=== PATIENT | male | born 1960 | race Caucasian/White ===

== ENCOUNTER 2019-03-31 15:46 | Outpatient (CLI) | payer BC, SELFPAY ==
--- NOTE | ~2019-03-31 | MR_ITS ---
EXAMINATION: MR cervical spine wo con DATE: 03/31/2019 16:35 INDICATION: Myelopathy. TECHNIQUE: Magnetic resonance imaging (MRI) of the cervical spine was performed without intravenous c ontrast. Sequences included sagittal T2-weighted FSE, sagittal STIR FSE, sagittal T1-weighted FSE, ax ial MERGE, and axial T2-weighted FSE. COMPARISON: None FINDINGS: There is 2 mm anterolisthesis of C5 on C6. Vertebral body heights are normal. There is mild ly decreased disc height at C5-C6 and severely decreased disc height at C6-C7. The spinal cord signal intensity is normal. The following disc levels are specifically discussed: C2-C3: The disc does not extend beyond the endplate margin. There is no uncovertebral joint osteoarth ritis. There is severe bilateral facet joint osteoarthritis. There is no neural foraminal stenosis. T here is no central canal stenosis. C3-C4: The disc does not extend beyond the endplate margin. There is no uncovertebral joint osteoarth ritis. At the right facet joint, there is a 1.5 x 1.5 cm lesion of increased T2-weighted signal inten sity that is likely a multiloculated cystic lesion. There is erosion of the adjacent right C3 lateral mass. There is mild right neural foraminal stenosis. There is no central canal stenosis. C4-C5: The disc does not extend beyond the endplate margin. There is no uncovertebral joint osteoarth ritis. There is severe right and moderate left facet joint osteoarthritis. There is no neural foramin al stenosis. There is no central canal stenosis. C5-C6: The disc is bulging. There is mild right and moderate left uncovertebral joint osteoarthritis. There is mild right and severe left facet joint osteoarthritis. There is mild right and moderate lef t neural foraminal stenosis. There is mild central canal stenosis. C6-C7: The disc is bulging. There is severe bilateral uncovertebral joint osteoarthritis. There is mi ld bilateral facet joint osteoarthritis. There is mild right and moderate left neural foraminal steno sis. There is mild central canal stenosis. C7-T1: The disc does not extend beyond the endplate margin. There is no uncovertebral joint osteoarth ritis. There is severe bilateral facet joint osteoarthritis. There is mild bilateral neural foraminal stenosis. There is no central canal stenosis. IMPRESSION: 1. Severe cervical spondylosis. 2. Cystic lesion at the right C3-C4 facet joint with erosion of the adjacent right C3 lateral mass. T his finding is most likely arthritis with a joint effusion. Primary expansile bone lesion such as ost eoblastoma cannot be excluded. Noncontrast cervical spine CT is recommended. Reviewed, dictated and finalized at location A. TS DIRECTOR IMPRESSION: 1. Severe cervical spondylosis. 2. Cystic lesion at the right C3-C4 facet joint with erosion of the adjacent ri ght C3 lateral mass. This finding is most likely arthritis with a joint effusio n. Primary expansile bone lesion such as osteoblastoma cannot be excluded. Nonc ontrast cervical spine CT is recommended.
== END 2019-03-31 15:47 | disposition home or self-care (01) ==
PROVIDERS: PCP Family Medicine; Visit Provider Psychiatry & Neurology Neurology
DX: G95.9 Disease of spinal cord, unspecified (principal); M47.892 Other spondylosis, cervical region
CPT/HCPCS: 72141

== ENCOUNTER 2019-04-30 08:14 | Outpatient (CLI) | payer BC, SELFPAY ==
--- NOTE | ~2019-04-30 | US_ITS ---
EXAMINATION: US art doppler w monique PATINO EXAM DATE: 04/30/2019 08:55 INDICATION: Peripheral arterial disease. TECHNIQUE: Segmental pressures and plethysmographic and Doppler waveforms of the brachial and lower e xtremity arteries were obtained. There is no prior study for comparison. FINDINGS: Right and left brachial artery pressures of 115 mm Hg and 112 mm Hg, respectively, are concordant (no rmal difference <= 30 mmHg). The right and left thigh-brachial pressure indices are 1.34, 1.10, resp ectively (normal > 1.2). RIGHT LEG: The ankle-brachial index (NATIV[place]) is 1.14 (normal >= 0.9-1). The great toe-brachial index (TBI) is 0.96 (normal >= 0.65). The lower extremity ratios, segmental pressure gradients as follows; Proximal superficial femoral artery:- 1.34 (154 mmHg). Distal superficial femoral artery: ----- 1.24 (1043 mmHg). Popliteal: 1.11 (128 mmHg). Dorsalis pedis: 1.09 (125 mmHg). Posterior tibial: 1.14 (131 mmHg). (Normal gradients <= 20-30 mmHg between adjacent levels on the same leg or the same levels on the two legs). Arterial waveforms are biphasic. LEFT LEG: The ankle-brachial index (NATIVIDAD) is 1.11 (normal >= 0.9-1). The great toe-brachial index (TBI) is 1.13 (normal >= 0.65). The lower extremity ratios, segmental pressure gradients as follows; Proximal superficial femoral artery:- 1.10 (127 mmHg). Distal superficial femoral artery: ----- 1.15 (132 mmHg). Popliteal: 1.13 (130 mmHg). Dorsalis pedis: 1.10 (126 mmHg). Posterior tibial: 1.11 (128 mmHg). (Normal gradients <= 20-30 mmHg between adjacent levels on the same leg or the same levels on the two legs). Arterial waveforms are biphasic. IMPRESSION: 1. Right ankle-brachial index 1.14. 2. Left ankle-brachial index 1.11. 3. Segmental pressures as above. Reviewed, dictated and finalized at location B. REPORT CLERK
== END 2019-04-30 08:15 | disposition home or self-care (01) ==
PROVIDERS: PCP Family Medicine; Visit Provider Psychiatry & Neurology Neurology
DX: I73.9 Peripheral vascular disease, unspecified (principal)
CPT/HCPCS: 93923

== ENCOUNTER 2019-05-16 12:23 | Outpatient (CLI) | payer BC, SELFPAY ==
--- NOTE | ~2019-05-16 | MR_ITS ---
EXAMINATION: MR thoracic spine wo con EXAM DATE: 05/16/2019 13:31 INDICATION: Bilateral leg pain. TECHNIQUE: Multi-sequential, multiplanar MR images of the thoracic spine were obtained without contra st. Sagittal T1, T2, T2 fat saturation, axial T2 weighted images reviewed. There is no prior study for comparison. FINDINGS: The spinal cord signal intensity and intrinsic morphology is normal. There is mild to moder ate upper thoracic facet arthropathy, mild mid and lower thoracic facet arthropathy. The vertebral b odies are aligned in the AP dimension. There are no suspicious marrow signal abnormalities. Paraspi nal soft tissue is unremarkable. At T3-4 and T4-5 there is mild to moderate right neural foraminal stenosis. Otherwise no more than mi ld neural foraminal stenosis at other levels. IMPRESSION: 1. Normal cord signal. 2. Overall mild thoracic spondylosis. Reviewed, dictated and finalized at location A.
== END 2019-05-16 12:24 | disposition home or self-care (01) ==
PROVIDERS: PCP Family Medicine
DX: M47.24 Other spondylosis with radiculopathy, thoracic region (principal)
CPT/HCPCS: 72146

== ENCOUNTER 2020-05-09 12:37 | Emergency (ER) | payer MEDICARE, SELFPAY ==
--- NOTE | ~2020-05-09 | XR_ITS ---
EXAMINATION: XR chest 2V EXAM DATE: 05/09/2020 13:16 INDICATION: Cough for one month. TECHNIQUE: Frontal and lateral projections of the chest obtained and reviewed. There is no prior ronni dy for comparison. FINDINGS: Moderate chronic hyperinflation. The lungs are clear. There are no pleural effusions. Th e cardiomediastinal silhouette is within normal limits. There is no pneumothorax suspected. The bon es and soft tissues are unremarkable. IMPRESSION: No acute cardiopulmonary findings. Reviewed, dictated and finalized at location B. E CREWMEMBER
--- NOTE | 2020-05-09 12:50 | ED.URI ---
HPI - URI/Sore Throat General Stated Complaint: Coughing and painful breathing Time Seen by Provider: 05/09/20 12:50 Source: patient and RN notes reviewed History of Present Illness HPI Narrative: Patient is a 59-year-old male who presents the urgent care with complaints of 1 month history of cough which is worsened in the last week. States that the cough is now accompanied with productive clear phlegm, intermittent shortness of breath, pain with deep breathing, and postnasal drainage. Patient states that he does have yearly typical allergies but never seems to last this long. Patient states he did recently get 2 new dogs and has had issues in the past with cats. Patient states that he has been taking his allergy medication as well as a vapo mist inhaler . Patient also reports of the use of Robitussin with the cough. Patient does not appear dyspneic at this time and is speaking well in full sentences. Denies of any fever, chills, nausea, vomiting, chest pain. No other acute complaints. No acute distress noted. Patient aware of the plan of care. Some parts of this dictation were generated by voice recognition software and may contain typographical and/or grammatical inaccuracies. Related Data Home Medications Medication Instructions Recorded Confirmed baclofen 20 mg PO BID 05/09/20 05/09/20 furosemide 40 mg PO DAILY 05/09/20 05/09/20 linaclotide [Linzess] 145 mcg PO DAILY 05/09/20 05/09/20 spironolactone 50 mg PO DAILY 05/09/20 05/09/20 Allergies Allergy/AdvReac Type Severity Reaction Status Date / Time Penicillins Allergy Unknown Unknown Verified 05/09/20 12:47 duloxetine [From Cymbalta] AdvReac Confusion Verified 05/09/20 12:47 Review of Systems Review of Systems: Narrative: CONSTITUTIONAL: Denies fever, chills, or sweats. EYES: Denies visual changes, redness, or discharge. ENT: Denies rhinorrhea, congestion, sore throat, or otalgia. CARDIOVASCULAR: Denies chest pain, palpitations, or edema. RESPIRATORY: Reports of productive cough, pain with deep breathing, chest tightness, and intermittent dyspnea GASTROINTESTINAL: Denies abdominal pain, nausea, vomiting, or diarrhea. GENITOURINARY: Denies dysuria or hematuria. SKIN: Denies rash or itching. MUSCULOSKELETAL: Denies back pain, joint pain, or myalgia. NEUROLOGIC: Denies headache, numbness, or weakness. All other systems reviewed are negative, except as documented in HPI. [facility] Past Medical History Medical History (Updated 05/09/20 @ 13:26 by OLAF Yeboah) Asthma Constipation due to opioid therapy GERD (gastroesophageal reflux disease) Hepatitis Reactive depression Restless legs syndrome (RLS) Tubular adenoma Surgical History Surgical History S/P shoulder surgery S/P wrist surgery Family History Family History Father Heart disease COPD (chronic obstructive pulmonary disease) Unknown Allergies Social History Social History (Updated 02/16/20 @ 09:[address] [facility]) Smoking status: Current every day smoker Tobacco type: cigarettes Alcohol intake: former Substance use: never Substance use type: does not use Gender identity (if verbalized by the patient): Male Spiritual care concerns: No Agree to blood products: Yes Comments At the time of my signature, I reviewed and agree with the nursing past medical, surgical, social, and family history. There is no relevant family history pertinent to the patient complaint. Exam Narrative: Exam Narrative: GENERAL: This is a well-nourished, well-developed patient, in no apparent distress. HEAD: normocephalic, atraumatic. EYES: PERRL. Sclera clear/white. Vision is grossly intact. EARS: External ears normal, auditory canals clear and without drainage, notable bilateral cerumen without impaction, TMs normal without perforation. Hearing grossly intact. NOSE: External nos
[2020-05-09 13:00] VITALS: BP 145/87; PULSE 74; RESP 26; TEMP 36.7; O2SAT 95
[2020-05-09 13:07] VITALS: BP 145/87; PULSE 74; RESP 26; TEMP 36.7; O2SAT 95
== END 2020-05-09 13:30 | disposition home or self-care (01) ==
PROVIDERS: Emergency Provider Nurse Practitioner Family; PCP Family Medicine
DX: J20.9 Acute bronchitis, unspecified (principal); F17.210 Nicotine dependence, cigarettes, uncomplicated; J45.909 Unspecified asthma, uncomplicated; K21.9 Gastro-esophageal reflux disease without esophagitis; G25.81 Restless legs syndrome
CPT/HCPCS: 71046; 99213; G0463

== ENCOUNTER 2020-05-16 11:28 | Outpatient (CLI) | payer MEDICARE, SELFPAY | END 2020-05-16 11:29 | disposition home or self-care (01) | LOC: ANHCOVIDVC 11:28 | PROVIDERS: PCP Family Medicine | DX: Z23 Encounter for immunization (principal) | CPT/HCPCS: 0001A; 91300 ==

== ENCOUNTER 2020-05-23 11:24 | Emergency (ER) | payer MEDICARE, SELFPAY ==
[2020-05-23 11:58] VITALS: BP 121/78; PULSE 72; RESP 18; TEMP 36.4; O2SAT 99
--- NOTE | 2020-05-23 13:51 | ED.GENADULT ---
HPI - General Adult General Chief complaint: Wound/Laceration <MARILOU Land Last Filed: 05/23/20 16:47> Stated complaint: finger laceration <Mt Guerin PA-C - Last Filed: 05/23/20 16:47> Time Seen by Provider: 05/23/20 12:28 <MARILOU Land Last Filed: 05/23/20 16:47> Source: patient <MARILOU Land Last Filed: 05/23/20 16:47> Mode of arrival: ambulatory <MARILOU Land Last Filed: 05/23/20 16:47> Limitations: no limitations <MARILOU Land Last Filed: 05/23/20 16:47> History of Present Illness HPI narrative: Patient presents with chief complaint of laceration to the volar aspect of his left second digit. Patient states that he lacerated on a wire yesterday afternoon. He states that he bandaged the area but he noticed bleeding this morning so he called his primary care to be seen in their office and was told that they were for him to come to the emergency department. Patient states that he is up-to-date on tetanus. Patient states that he still has sensation and flexion of the finger. 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 He declines wanting an x-ray. He denies any other injuries or symptoms. <MARILOU Land Last Filed: 05/23/20 16:47> Related Data Home medications: Home Medications Medication Instructions Recorded Confirmed baclofen 20 mg PO BID 05/09/20 05/09/20 linaclotide [Linzess] 145 mcg PO DAILY 05/09/20 05/09/20 spironolactone 50 mg PO DAILY 05/09/20 05/09/20 <MARILOU Land Last Filed: 05/23/20 16:47> Allergies/adverse reactions: Allergies Allergy/AdvReac Type Severity Reaction Status Date / Time Penicillins Allergy Unknown Unknown Verified 05/09/20 12:47 duloxetine [From Cymbalta] AdvReac Confusion Verified 05/09/20 12:47 <Mt Guerin PA-C - Last Filed: 05/23/20 16:47> Review of Systems Review of Systems: Narrative: CONSTITUTIONAL: Denies fever, chills, or sweats. EYES: Denies visual changes, redness, or discharge. ENT: Denies rhinorrhea, congestion, sore throat, or otalgia. CARDIOVASCULAR: Denies chest pain, palpitations, or edema. RESPIRATORY: Denies cough or dyspnea. GASTROINTESTINAL: Denies abdominal pain, nausea, vomiting, or diarrhea. GENITOURINARY: Denies dysuria or hematuria. SKIN: Reports laceration denies rash or itching. MUSCULOSKELETAL: Denies back pain, joint pain, or myalgia. NEUROLOGIC: Denies headache, numbness, dizziness, or weakness. PSYCHIATRIC: Denies anxiety or depression. <Mt Guerin PA-C - Last Filed: 05/23/20 16:47> [facility] Past Medical History Medical History: Medical History (Updated 05/23/20 @ 13:59 by Mt Guerin PA-C) Asthma Constipation due to opioid therapy GERD (gastroesophageal reflux disease) Hepatitis Reactive depression Restless legs syndrome (RLS) Tubular adenoma <Mt Guerin PA-C - Last Filed: 05/23/20 16:47> Surgical History Surgical History: Surgical History S/P shoulder surgery S/P wrist surgery <Mt Guerin PA-C - Last Filed: 05/23/20 16:47> Family History Family History: Family History Father Heart disease COPD (chronic obstructive pulmonary disease) Unknown Allergies <Mt Guerin PA-C - Last Filed: 05/23/20 16:47> Social History Social History: Social History (Updated 02/16/20 @ 09:06 by Gela Avila CMA) Smoking status: Current every day smoker Tobacco type: cigarettes Alcohol intake: former Substance use: never Substance use type: does not use Gender identity (if verbalized by the patient): Male Spiritual care concerns: No Agree to blood products: Yes <Mt Guerin PA-C - Last Filed: 05/23/20 16:47> Exam Narrative: Exam Narrative: GENERAL: Well-appearing, well-nourished, and in no acu
== END 2020-05-23 14:23 | disposition home or self-care (01) ==
PROVIDERS: Emergency Provider Emergency Medicine; PCP Family Medicine
DX: S61.211A Laceration without foreign body of left index finger without damage to nail, initial encounter (principal); J45.909 Unspecified asthma, uncomplicated; K21.9 Gastro-esophageal reflux disease without esophagitis; G25.81 Restless legs syndrome; F17.210 Nicotine dependence, cigarettes, uncomplicated; W26.8XXA Contact with other sharp object(s), not elsewhere classified, initial encounter; Z86.010 Personal history of colon polyps
CPT/HCPCS: 99283

== ENCOUNTER 2020-06-06 11:27 | Outpatient (CLI) | payer MEDICARE, SELFPAY | END 2020-06-06 11:28 | disposition home or self-care (01) | LOC: ANHCOVIDVC 11:27 | PROVIDERS: PCP Family Medicine | DX: Z23 Encounter for immunization (principal) | CPT/HCPCS: 0002A; 91300 ==

== ENCOUNTER 2021-03-06 09:39 | Emergency (ER) | payer MEDICARE, SELFPAY ==
--- NOTE | 2021-03-06 09:45 | ED.URI ---
HPI - URI/Sore Throat General Chief Complaint: Upper Respiratory Infection Stated Complaint: sinus infection chest congestion ear pain Time Seen by Provider: 03/06/21 09:45 Source: patient and RN notes reviewed History of Present Illness HPI Narrative: Patient is a 60-year-old male who presents the urgent care with complaints of sinus congestion, chest congestion and right ear pain. Patient states that it started last Friday and he has been taking [id number] medication with Sudafed for symptom relief. Patient does have a chronic bronchitis and is being treated for early stages of COPD with Symbicort. Patient denies of any fever, chills, nausea, vomiting. Patient has had the Covid vaccine and denies of any exposures. No other acute complaints. No acute distress noted. Patient aware of the plan of care. Some parts of this dictation were generated by voice recognition software and may contain typographical and/or grammatical inaccuracies. Related Data Home Medications Medication Instructions Recorded Confirmed linaclotide [Linzess] 145 mcg PO DAILY 05/09/20 08/21/20 Allergies Allergy/AdvReac Type Severity Reaction Status Date / Time Penicillins Allergy Unknown Unknown Verified 03/06/21 09:54 duloxetine [From Cymbalta] AdvReac Confusion Verified 03/06/21 09:54 Review of Systems Review of Systems: CONSTITUTIONAL: Denies fever, chills, or sweats. EYES: Denies visual changes, redness, or discharge. ENT: Reports of rhinorrhea, right otalgia, sinus congestion CARDIOVASCULAR: Denies chest pain, palpitations, or edema. RESPIRATORY: Reports of cough, chest congestion without dyspnea GASTROINTESTINAL: Denies abdominal pain, nausea, vomiting, or diarrhea. GENITOURINARY: Denies dysuria or hematuria. SKIN: Denies rash or itching. MUSCULOSKELETAL: Denies back pain, joint pain, or myalgia. NEUROLOGIC: Denies headache, numbness, or weakness. All other systems reviewed are negative, except as documented in HPI. [facility] Past Medical History Medical History Asthma Constipation due to opioid therapy GERD (gastroesophageal reflux disease) Hepatitis Reactive depression Restless legs syndrome (RLS) Tubular adenoma Surgical History Surgical History S/P shoulder surgery S/P wrist surgery Family History Family History Father Heart disease COPD (chronic obstructive pulmonary disease) Unknown Allergies Social History Social History Tobacco type: cigarettes Alcohol intake: former Substance use: never Substance use type: does not use Gender identity (if verbalized by the patient): Male Spiritual care concerns: No Agree to blood products: Yes Comments At the time of my signature, I reviewed and agree with the nursing past medical, surgical, social, and family history. There is no relevant family history pertinent to the patient complaint. Exam Narrative: GENERAL: This is a well-nourished, well-developed patient, in no apparent distress. HEAD: normocephalic, atraumatic. EYES: PERRL. Sclera clear/white. Vision is grossly intact. EARS: External ears normal, auditory canals clear and without drainage, mild to moderate fluid noted behind bilateral TMs without otitis. TMs normal without perforation. Hearing grossly intact. NOSE: External nose normal with no obvious nasal discharge, nares without redness, no rhinorrhea. THROAT: Mucous membranes moist, posterior pharynx clear. Moderate postnasal drainage. NECK: Neck supple CARDIOVASCULAR: Regular rate and rhythm without murmurs, gallops, or rubs. RESPIRATORY: Slight crackles throughout and slightly diminished upper lung sounds SKIN: warm, intact with no suspicious lesions or rash, good texture and turgor. NEURO: awake, alert, and oriented to person, p
[2021-03-06 09:46] VITALS: BP 112/66; PULSE 88; RESP 18; TEMP 36.4; O2SAT 95
== END 2021-03-06 10:03 | disposition home or self-care (01) ==
PROVIDERS: Emergency Provider Nurse Practitioner Family; PCP Family Medicine
DX: J40 Bronchitis, not specified as acute or chronic (principal); Z87.891 Personal history of nicotine dependence; K21.9 Gastro-esophageal reflux disease without esophagitis; G25.81 Restless legs syndrome; Z86.19 Personal history of other infectious and parasitic diseases; J44.9 Chronic obstructive pulmonary disease, unspecified
CPT/HCPCS: 99213; G0463

== ENCOUNTER → 2022-03-20 09:01 | Outpatient (CLI) | payer MEDICARE, SELFPAY ==
--- NOTE | ~2022-03-20 | US_ITS ---
Limited Abdominal Sonogram: Real-time sonographic imaging of the right upper quadrant was performed. Clinical History: Ascites Findings: The liver demonstrates diffusely nodular contour. No focal mass or biliary dilatation evid ent. Main portal vein demonstrates normal direction of flow. The gallbladder is well distended, and a ppears normal with no evidence of gallstone or wall thickening. The common bile duct measures 4 mm. The visualized pancreas, aorta, and IVC are unremarkable. Impression: Nodular contour of the liver is consistent with cirrhosis. No ascites visualized. Reviewed, dictated and finalized at location M. UNITY RELATIONS COORDINATOR Impression: Nodular contour of the liver is consistent with cirrhosis. No ascites visualized.
== END ==
PROVIDERS: PCP Family Medicine; Visit Provider Internal Medicine Gastroenterology
DX: R18.8 Other ascites (principal)
CPT/HCPCS: 76705

== ENCOUNTER 2022-05-10 14:33 | Outpatient (CLI) | payer MEDICARE, SELFPAY ==
--- NOTE | 2022-05-10 14:42 | ECHO_ITS ---
Patient Info Name: Don Carbajal Age: 61 years : 1960 Gender: Male Ht: 66 in Wt: 170 lbs BSA: 1.91 m2 HR: 88 bpm BP: 115 / 75 mmHg Technical Quality: Fair Exam Date: 05/10/2022 2:58 PM Exam Location: [facility] Patient Status: Outpatient Admit Date: 05/10/2022 Staff Ordering Physician: Leonardo Isidro MD Blood Bank Technologist: Francie Maddox RDCS Attending Provider: Leonardo Isidro MD Referring Physician: Sanna CARLOS; Exam Type: CA echo doppler color flow Study Info Indications - cardiac murmur Complete two-dimensional, color flow and Doppler transthoracic echocardiogram is performed. Summary 1. Complete two-dimensional, color flow and Doppler transthoracic echocardiogram is performed. 2. Left ventricular chamber dimension is normal. 3. Left ventricular systolic function is normal, estimated at 60-65%. 4. The left ventricular diastolic function is grade I diastolic dysfunction. 5. E/e' 8 is minimally elevated. 6. Global longitudinal strain is normal at -18.1%. 7. There is mild mitral valve regurgitation. 8. There is trace tricuspid valve regurgitation. 9. No pulmonary hypertension, estimated pulmonary arterial systolic pressure is 29 mmHg. Left Ventricle E/e' 8 is minimally elevated. Global longitudinal strain is normal at -18.1%. Left ventricular chamber dimension is normal. Left ventricular systolic function is normal, estimated at 60-65%. The left ventricular diastolic function is grade I diastolic dysfunction. Right Ventricle Right ventricular systolic function is normal and with normal TAPSE 2.3 cm. Right ventricular chamber dimension is normal. Left Atria Left atrial chamber dimension is normal. Right Atria Right atrial chamber dimension is normal. Aortic Valve The aortic valve is trileaflet. There is no aortic valve stenosis. There is no aortic valve regurgitation. Pulmonic Valve There is no pulmonic regurgitation. Mitral Valve There is no mitral valve stenosis. There is mild mitral valve regurgitation. Tricuspid Valve There is trace tricuspid valve regurgitation. No pulmonary hypertension, estimated pulmonary arterial systolic pressure is 29 mmHg. Pericardium/Pleural There is no pericardial effusion. Inferior Vena Cava Normal inferior vena cava with >50% collapse upon inspiration consistent with normal right atrial pressure, 5 mmHg. Aorta The aortic root size at the sinus of Valsalva is normal. Left Ventricular Outflow Tract Name Value Normal LVOT 2D LVOT Diameter 2.0 cm LVOT Doppler LVOT Peak Gradient 6 mmHg LVOT Mean Gradient 3 mmHg LVOT VTI 22 cm LVOT VTI/AV VTI Ratio 1.0 LVOT Stroke Volume 67 ml LVOT CO 15.0 l/min LVOT CI 7.9 l/min/m2 Pulmonic Valve Name Value Normal
== END 2022-05-10 14:34 | disposition home or self-care (01) ==
LOC: ANHCARD 14:35
PROVIDERS: PCP Family Medicine; Visit Provider Family Medicine
DX: R01.1 Cardiac murmur, unspecified (principal); I34.0 Nonrheumatic mitral (valve) insufficiency
CPT/HCPCS: 93306

== ENCOUNTER 2022-12-02 10:18 | Outpatient (CLI) | payer MEDICARE, SELFPAY ==
[2022-12-02 14:18] LABS: HIV 1/2 Ab P24 Ag Result Negative (Negative); Hepatitis B Surface Antigen Negative (Negative); Hepatitis C Virus Antibody Reactive (Negative)
[2022-12-05 18:17] LABS: Hepatitis C RNA, Quant PCR <15 IU/mL
== END 2022-12-02 10:19 | disposition home or self-care (01) ==
PROVIDERS: PCP Family Medicine; Visit Provider Family Medicine
DX: T85.698A Other mechanical complication of other specified internal prosthetic devices, implants and grafts, initial encounter (principal); W46.0XXA Contact with hypodermic needle, initial encounter
CPT/HCPCS: 36415; 86703; 86803; 87340; 87522; G0432

== ENCOUNTER 2022-12-13 09:59 | Outpatient (CLI) | payer MEDICARE, SELFPAY ==
--- NOTE | ~2022-12-13 | XR_ITS ---
Right foot Technique: AP, oblique, and lateral views were obtained. Clinical History: Injury Findings: No acute fracture or dislocation is seen. Osseous alignment is anatomic. Joint spaces are p reserved without erosive or degenerative change. Plantar calcaneal spur noted. Soft tissues are unrem arkable. Impression: No fracture or dislocation. Plantar calcaneal spur. Reviewed, dictated and finalized at location . Impression: No fracture or dislocation. Plantar calcaneal spur.
== END 2022-12-13 10:00 | disposition home or self-care (01) ==
PROVIDERS: PCP Family Medicine; Visit Provider Family Medicine
DX: S99.929A Unspecified injury of unspecified foot, initial encounter (principal); X58.XXXA Exposure to other specified factors, initial encounter; M77.31 Calcaneal spur, right foot
CPT/HCPCS: 73630

== ENCOUNTER → 2023-01-08 08:02 | Outpatient (CLI) | payer MEDICARE, SELFPAY ==
--- NOTE | ~2023-01-08 | US_ITS ---
Limited Abdominal Sonogram: Real-time sonographic imaging of the right upper quadrant was performed. Clinical History: Alcoholic cirrhosis, ascites Findings: The liver appears nodular in contour, with no evidence of mass lesion or bile duct dilatat ion. Main portal vein demonstrates normal direction of flow. The gallbladder is partially distended, and appears normal with no evidence of gallstone or wall thickening. The common bile duct measures 3 mm. The visualized pancreas, aorta, and IVC are unremarkable. Impression: Cirrhotic liver. No ascites seen in the right upper quadrant. Reviewed, dictated and finalized at location . LLENCE CONSULTANT Impression: Cirrhotic liver. No ascites seen in the right upper quadrant.
== END ==
PROVIDERS: PCP Family Medicine; Visit Provider Internal Medicine Gastroenterology
DX: K70.31 Alcoholic cirrhosis of liver with ascites (principal)
CPT/HCPCS: 76705

== ENCOUNTER 2023-05-27 08:22 | Outpatient (CLI) | payer MEDICARE, SELFPAY ==
--- NOTE | ~2023-05-27 | XR_ITS ---
XR foot RT min 3V 05/27/2023 08:37 Indication: Right foot pain Procedure: Right foot pain Comparison: 12/13/2022 Findings: There is moderate polyarticular osteoarthritis. Lisfranc joint intact. There is a degenerat genesis calcaneal enthesophyte at the plantar surface. No focal soft tissue abnormality. Impression: 1: Moderate polyarticular osteoarthritis. Reviewed, dictated and finalized at location L. Impression: 1: Moderate polyarticular osteoarthritis.
== END 2023-05-27 08:23 | disposition home or self-care (01) ==
LOC: ANHIMG 08:24
PROVIDERS: PCP Family Medicine; Visit Provider Family Medicine
DX: M19.071 Primary osteoarthritis, right ankle and foot (principal)
CPT/HCPCS: 73630

== ENCOUNTER 2023-09-01 08:25 | Outpatient (CLI) | payer MEDICARE, SELFPAY ==
--- NOTE | ~2023-09-01 | US_ITS ---
Limited ABDOMINAL ULTRASOUND Ordering provider: Valente Jett, History: . compensated HCV cirrhosis . Comparison: None. FINDINGS: LIVER: Coarse nodular surface is noted suggestive of cirrhosis. The liver measures 15.7 cm. Portal vein flow is normal. GALLBLADDER: Unremarkable. No evidence for stones, sludge, gallbladder wall thickening or pericholecy stic fluid collections. A negative sonographic Ruiz's sign was noted. BILIARY DUCTS: No evidence for intra or extrahepatic biliary dilation. Common bile duct measures 5 mm in diameter which is within normal limits. PANCREAS: Normal echotexture and size. Tail is obscured. IMPRESSION: 1. Liver cirrhosis. Otherwise, Unremarkable limited ultrasound of the abdomen. Reviewed, dictated and finalized at location A.
== END 2023-09-01 08:26 ==
LOC: GOSHIMG 08:28
PROVIDERS: PCP Family Medicine; Visit Provider Internal Medicine Gastroenterology
DX: K74.69 Other cirrhosis of liver (principal); B19.20 Unspecified viral hepatitis C without hepatic coma
CPT/HCPCS: 76705

== ENCOUNTER 2024-03-25 01:21 | Day surgery (SDC) | payer MEDICARE, SELFPAY ==
[2024-03-11 15:04] VITALS: BMI 27.4
--- NOTE | 2024-03-24 15:00 | P.PNAN_ITS ---
Anes - Initial Pre Proc Eval Procedure: Operation Date: 03/25/24 07:30 Proposed Procedures p Screening Colonoscopy - Fidencio Pino MD Date/Time: 03/24/24 15:00 Surgeon: Fidencio Pino MD Pre Op Diagnosis: personal hx colon polyps Patient Data Age: 63 Gender: M Height: 1.68 m Weight: 77.2 kg Allergies Allergy/AdvReac Type Severity Reaction Status Date / Time Penicillins Allergy Unknown Unknown Verified 03/25/24 06:13 duloxetine (From Cymbalta) AdvReac Confusion Verified 03/25/24 06:13 Home Medications ?Medication ?Instructions ?Recorded ?Confirmed ?Type sildenafil 100 mg tablet (Viagra) 100 mg PO DAILY PRN sexual 06/26/23 03/16/24 Rx activity #10 tabs esomeprazole magnesium 40 mg 40 mg PO DAILY #100 caps 02/11/24 03/25/24 Rx capsule,delayed release (Nexium) gabapentin 300 mg capsule See Rx Instructions .Route 02/11/24 03/25/24 Rx .COMPLEX #200 caps Symbicort 160 mcg-4.5 See Rx Instructions .Route 02/20/24 03/16/24 Rx mcg/actuation HFA aerosol inhaler .COMPLEX #10.2 grams (budesonide-formoterol) fluorouracil 5 % topical cream applic topical 03/16/24 03/16/24 History varenicline tartrate 1 mg tablet 1 mg PO DAILY 03/16/24 03/25/24 History Patient hx anesthesia problems: none Family hx anesthesia problems: none Results Review: All pre-operative results and documents have been reviewed as part of the pre- operative evaluation. [facility], [facility] Past Medical History Medical History (Updated 03/24/24 @ 15:01 by Jim hCew DO) Cirrhosis of liver COPD (chronic obstructive pulmonary disease) Tubular adenoma Constipation due to opioid therapy Hepatitis GERD (gastroesophageal reflux disease) Asthma Reactive depression Restless legs syndrome (RLS) Surgical History Surgical History S/P wrist surgery S/P shoulder surgery Family History Family History Father Heart disease COPD (chronic obstructive pulmonary disease) Unknown Allergies Social History Social History (Reviewed 03/16/24 @ 09:29 by JORY Hernandez Smoking packs per day: 1 Smoking cigarettes per day: 20.0 Years smoked: 20 Smoking pack-years: 20.00 Smoking status: Former smoker Tobacco type: cigarettes Alcohol intake: never Substance use: never Substance use type: does not use Lack of Transportation: No Lack of Food: Never True Current Housing: I Have Housing Concerned About Future Housing: No Difficulty Paying Gas/Electric Bills: No Difficulty Paying for Meds: No Currently Unemployed: No Education: Associate Degree Difficulty w/ Childcare or Family Care: No Living arrangements: with family Occupation/Education: retired Gender identity (if verbalized by the patient): Male Spiritual care concerns: No Agree to blood products: Yes Anes - Eval Final PreProcedure Day of Procedure 03/24/24 15:00 Patient weight: overweight Heart: regular rate and rhythm Lungs: clear to auscultation Airway: Mallampati scale class II Neurological: alert and oriented Last oral intake: >/= 8 hours ASA classification: IV Emergent: no Anesthetic plan: proceed Anesthesia type and monitoring: general GIVS and standard monitoring Results Review: All pre-operative results and documents have been reviewed as part of the pre-op erative evaluation. Informed Consent: The patient's anesthetic plan and its attendant risks and benefits were discussed with the patient/family/POA. Questions were solicited and answers provided to the satisfaction of the patient/family/POA.
[2024-03-25 06:15] VITALS: BP 125/68; PULSE 72; RESP 18; TEMP 36.4; O2SAT 99; BMI 26.0
[2024-03-25] MEDS: LACTATED RINGERS 1,000 ML 150 ML IV CONT (06:26)
--- NOTE | 2024-03-25 07:37 | PM.IMHP ---
H&P: HPI History of Present Illness Date/Time: 03/25/24 07:37 Chief Complaint: History of colon polyps Narrative: The patient has a history of colonic polyps, the last colonoscopy was 5 years ago Review of Systems Review of Systems: All systems reviewed & are unremarkable except as noted in HPI and below PMFSH Past Medical History Medical History (Updated 03/25/24 @ 07:38 by Fidencio Pino MD) Cirrhosis of liver COPD (chronic obstructive pulmonary disease) Tubular adenoma Constipation due to opioid therapy Hepatitis GERD (gastroesophageal reflux disease) Asthma Reactive depression Restless legs syndrome (RLS) Surgical History Surgical History S/P wrist surgery S/P shoulder surgery Family History Family History Father Heart disease COPD (chronic obstructive pulmonary disease) Unknown Allergies Social History Social History Smoking packs per day: 1 Smoking cigarettes per day: 20.0 Years smoked: 20 Smoking pack-years: 20.00 Smoking status: Former smoker Tobacco type: cigarettes Alcohol intake: never Substance use: never Substance use type: does not use Lack of Transportation: No Lack of Food: Never True Current Housing: I Have Housing Concerned About Future Housing: No Difficulty Paying Gas/Electric Bills: No Difficulty Paying for Meds: No Currently Unemployed: No Education: Associate Degree Difficulty w/ Childcare or Family Care: No Living arrangements: with family Occupation/Education: retired Gender identity (if verbalized by the patient): Male Spiritual care concerns: No Agree to blood products: Yes Meds Home Medications and Allergies Home Medications ?Medication ?Instructions ?Recorded ?Confirmed ?Type sildenafil 100 mg tablet (Viagra) 100 mg PO DAILY PRN sexual 06/26/23 03/16/24 Rx activity #10 tabs esomeprazole magnesium 40 mg 40 mg PO DAILY #100 caps 02/11/24 03/25/24 Rx capsule,delayed release (Nexium) gabapentin 300 mg capsule See Rx Instructions .Route 02/11/24 03/25/24 Rx .COMPLEX #200 caps Symbicort 160 mcg-4.5 See Rx Instructions .Route 02/20/24 03/16/24 Rx mcg/actuation HFA aerosol inhaler .COMPLEX #10.2 grams (budesonide-formoterol) fluorouracil 5 % topical cream applic topical 03/16/24 03/16/24 History varenicline tartrate 1 mg tablet 1 mg PO DAILY 03/16/24 03/25/24 History Allergies Allergy/AdvReac Type Severity Reaction Status Date / Time Penicillins Allergy Unknown Unknown Verified 03/25/24 06:13 duloxetine (From Cymbalta) AdvReac Confusion Verified 03/25/24 06:13 Vital Signs Vital Signs - 24 hr 03/25/24 06:15 Temperature 97.6 F Pulse Rate 72 Respiratory Rate 18 Blood Pressure 125/68 Pulse Oximetry 99 Oxygen Delivery Room Air Exam Const: General: cooperative and healthy appearing Resp: Effort & Inspection: normal respiratory effort and able to speak in complete sentences Auscultation: clear to auscultation bilaterally Cardio: Rate: regular rate Rhythm: regular rhythm GI: Inspection: normal to inspection GI Palp: No No hepatosplenomegaly present Auscultation: normal bowel sounds Rectal Exam: deferred Skin: General skin exam: normal color Psych: Appearance: grossly normal Mental Status: mental status grossly normal Assessment and Plan Assessment and plan (1) Alcoholic cirrhosis of liver with ascites: Code(s): K70.31 - Alcoholic cirrhosis of liver with ascites Status: Acute (2) History of colonic polyps: Code(s): Z86.0100 - Personal history of colon polyps, unspecified Status: Acute Assessment and Plan: The patient is deemed a good candidate for the procedure. Consent signed. Will proceed.
[2024-03-25 07:58] VITALS: BP 90/57; PULSE 70; RESP 17; O2SAT 95
[2024-03-25 08:08] VITALS: BP 100/63; PULSE 68; RESP 19; O2SAT 100
[2024-03-25 08:18] VITALS: BP 105/67; PULSE 61; RESP 21; O2SAT 99
== END 2024-03-25 08:29 | disposition home or self-care (01) ==
PROVIDERS: PCP Family Medicine; Referring Provider Nurse Practitioner Family; Visit Provider Internal Medicine Gastroenterology
PROC: 0DJD8ZZ Inspection of Lower Intestinal Tract, Via Natural or Artificial Opening Endoscopic (ICD-10-PCS; CPT 45378; principal; 2024-03-25 07:30)
DX: K70.31 Alcoholic cirrhosis of liver with ascites (principal); K62.89 Other specified diseases of anus and rectum; K76.6 Portal hypertension; Z86.0100 Personal history of colon polyps, unspecified; Z87.891 Personal history of nicotine dependence
CPT/HCPCS: 45378; J2003; J2704; J7120

== ENCOUNTER 2024-04-22 08:12 | Outpatient (CLI) | payer MEDICARE, SELFPAY ==
--- NOTE | ~2024-04-22 | US_ITS ---
Abdominal Sonogram: Real-time sonographic imaging of the abdomen was performed. Clinical History: Alcoholic cirrhosis Findings: The liver demonstrates a diffusely nodular contour, without evidence for mass lesion or bi le duct dilatation. Main portal vein demonstrates normal direction of flow. The spleen is normal in s ize without evidence of focal lesion. The gallbladder is well distended, and appears normal with no evidence of gallstone or wall thickening. The common bile duct measures 4 mm. The visualized pancrea s, aorta, and IVC are unremarkable. The right kidney measures 8.8 cm in length and the left kidney m easures 10.3 cm. There is no hydronephrosis or renal calculus. Impression: Cirrhotic morphology of the liver. No focal hepatic mass identified on this exam. No ascites. Reviewed, dictated and finalized at location M. STYLE DIRECTOR Impression: Cirrhotic morphology of the liver. No focal hepatic mass identified on this exa m. No ascites.
== END 2024-04-22 08:13 | disposition home or self-care (01) ==
LOC: GOSHIMG 08:12
PROVIDERS: PCP Nurse Practitioner Family; Visit Provider Nurse Practitioner Family
DX: K70.31 Alcoholic cirrhosis of liver with ascites (principal)
CPT/HCPCS: 76700

== ENCOUNTER 2024-04-22 08:33 | Outpatient (CLI) | payer MEDICARE, SELFPAY ==
--- OUTSIDE RECORDS SUMMARY | 2024-04-22 08:38 | XMS_ITS | Clinical Summary ---
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 Name Role Phone Unavailable Primary Care Provider Unavailabl e Social History Tobacco Use Types Packs/Day Years Used Date Smoking Tobacco: Never Assessed Sex and Gender Information Value Date Recorded Sex Assigned at Not on file Legal Sex Male 7:56 PM CDT Gender Identity Not on file Sexual Orientation Not on file Plan of Treatment Health Maintenance Due Date Last Done Comments Colorectal Cancer Screening Colonoscopy (10 Years) 1958 Hepatitis C 1976 DTaP, Tdap and Td Vaccines ( 1 - Tdap) 1977 Zoster Vaccines (1 of 2) 2008 Pneumococcal Vaccine: 65+ Ye ars (1 of 1 - PCV) 05/29/2023 COVID-19 Vaccine ( - 2023-2 5 season) 2023 Influenza Adult (#1) 2023 RSV Immunization or 60+ Years (1 - 1-dose 75+ series) 2033 Meningococcal B Vaccine Aged Out No l onger eligible based on patient's age to complete this topic Meningococcal Vaccine Aged Out No ember april eligible based on patient's age to complete this topic Pneumococcal Vaccine: Pediat rics (0 to 5 Years) and At-Risk Patients (6 to 64 Years) Aged Out No longer eligible b ased on patient's age to complete this topic RSV Immunizations Under 20 Months Aged Out No longer eligible based on patient's age to complete this topic
--- OUTSIDE RECORDS SUMMARY | 2024-04-22 08:38 | XMS_ITS | Patient Health Summary ---
Author Organization [facility] Address [address] [place] [address] Care Team Providers Care Etymology Teacher Name Role Phone Leonardo Isidro MD Primary Care Provider [phone] Note from [facility],non-owned Affiliates and Associated Physician Practices is amultiple site organization consisting of ambulatory clinics and hospital sitesin [place], [place], [place] and [place]. This disclosure is being madepursuant to the Care Everywhere program and may not contain all information available regarding this patient. Last updated 17.[facility] Allergies * Penicillins(Unknown) Medications * Be aware that medications may not be up to date on this document. Alwaysverify current medications with the patient. * Multiple Vitamins-Minerals (CENTRUM SILVER 50+MEN) TABS(Started 03/13/2017) qd * esomeprazole (NEXIUM) 40 MG capsule Take 40 mg by mouth daily before breakfast * gabapentin (NEURONTIN) 300 MG capsule(Started 11/28/2019) Take 300 mg by mouth 2 times daily * SYMBICORT 160-4.5 MCG/ACT inhaler(Started 02/04/2021) INHALE 2 PUFFS BY MOUTH EVERY 12 HOURS * Cyanocobalamin (VITAMIN B 12 PO) Take by mouth once daily * vitamin D3 (Cholecalciferol) 25 MCG (1000 UNITS) tablet Take by mouth once daily * ascorbic acid (Vitamin C) 250 MG chewable tablet Take by mouth once daily * furosemide (Lasix) 40 MG tablet(Started 06/06/2022) TAKE 1 TABLET BY MOUTH ONCE DAILY 3 refills by 06/06/2023 * sildenafil (Viagra) 100 MG tablet(Started 08/21/2022) TAKE 1 TABLET BY MOUTH 30 MINUTES TO 4 HOURS BEFORE ACTIVITY * spironolactone (Aldactone) 100 MG tablet(Started 02/13/2023) TAKE 1 TABLET BY MOUTH ONCE DAILY 2 refills by 02/13/2024 Active Problems Problem Noted Date Diagnosed Date 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 Alcoholic cirrhosis of liver 11/18/2017 Arthritis 11/18/2017 Asthma 11/18/2017 Depression 11/18/2017 Immunizations * HEP A/HEP B(Given 01/19/2018) Social History Tobacco Use Types Packs/Day Years Used Date Smoking Tobacco: Every Day Cigarettes Smokeless Tobacco: Never Chew Tobacco Cessation:Ready to Q uit: Yes; Counseling Given: No Alcohol Use Standard Drinks/Week Comments Not Currently 0 (1 standard drink = 0.6 oz pure alcohol) Stopped August 2017; used to drink 2-3 handles per week AUDIT-C Answer Date Recorded Frequency of Alcohol Consumption Never 05/05/2019 Average Number of Drinks Not on file 020 Frequency of Binge Drinking Not on file 06/2019 Sex and Gender Information Value Date Recorded Sex Assigned at Not on file Gender Identity Not on file Sexual Orientation Not on file Last Filed Vital Signs Vital Sign Reading Time Taken Comments Blood Pressure 126/77 02/11/2023 8:40 AM CUSTOMER SUPPORT COORDINATOR Pulse 64 02/11/2023 8:40 AM CUSTOMER SUPPORT COORDINATOR Temperature 36.2 C (97.2 F) 02/11/2023 8:40 AM CUSTOMER SUPPORT COORDINATOR Respiratory Rate 18 02/11/2023 8:40 AM CUSTOMER SUPPORT COORDINATOR Oxygen Saturation 99% 02/11/2023 8:40 AM CUSTOMER SUPPORT COORDINATOR Inhaled Oxygen Concentration - - Weight 77.3 kg (170 lb 6.4 oz) 02/11/2023 8:40 A M CUSTOMER SUPPORT COORDINATOR Height 167.6 cm (5' 6 ) 02/11/2023 8:40 AM CUSTOMER SUPPORT COORDINATOR Body Mass Index 27.5 02/11/2023 8:40 AM CUSTOMER SUPPORT COORDINATOR Procedures * CBC W AUTO DIFFERENTIAL(Performed 09/09/2023) Performed for Alcoholic cirrhosis, unspecified whether ascites present (HCC), Compensated HCV cirrhosis (HCC) * COMPREHENSIVE METABOLIC PANEL(Performed 09/09/2023) Performed for Alcoholic cirrhosis, unspecified whether ascites present (HCC), Compensated HCV cirrhosis (HCC) * ALPHA FETOPROTEIN + AFP-L3(Performed 09/09/2023) Performed for Alcoholic cirrhosis, unspecified whether ascites present (HCC), Compensated HCV cirrhosis (HCC) * PT-INR(Performed 09/09/2023) Performed for Alcoholic cirrhosis, unspecified whether ascites present (HCC), Compensated HCV cirrhosis (HCC) * PT-INR(Performed 01/03/2023) Performed for Alcoholic cirrhosis, unspecified whether ascites present (HCC), Compensated HCV cirrhosis (HCC) * COMPREHENSIVE METABOLIC PANEL(Performed 01/03/2023) Performed for Alcoholic cirrhosis, unspecified whether ascites present (HCC), Compensated HCV cirrhosis (HCC) * CBC W/O DIFFERENTIAL(Performed 01/03/2023) Performed for Alcoholic cirrhosis, unspecified whether ascites present (HCC), Compensated HCV cirrhosis (HCC) * ALPHA FETOPROTEIN BLOOD TUMOR MARKER(Performed 01/03/2023) Performed for Alcoholic cirrhosis, unspecified whether ascites present (HCC), Compensated HCV cirrhosis (HCC) * BASIC METABOLIC PANEL (CALCIUM TOTAL)(Performed 02/12/2022) Performed for Alcoholic cirrhosis of liver with ascites (HCC), Encounter for monitoring diuretic therapy * PT-INR(Performed 12/24/2021) Performed for Alcoholic cirrhosis of liver with ascites (HCC) * COMPREHENSIVE METABOLIC PANEL(Performed 12/24/2021) Performed for Alcoholic cirrhosis of liver with ascites (HCC) * CBC W AUTO DIFFERENTIAL(Performed 12/24/2021) Performed for Alcoholic cirrhosis of liver with ascites (HCC) * PT-INR(Performed 11/20/2021) * BASIC METABOLIC PANEL (CALCIUM TOTAL)(Performed 08/27/2021) * BASIC METABOLIC PANEL (CALCIUM TOTAL)(Performed 05/18/2021) Performed for Alcoholic cirrhosis of liver with ascites (HCC), Elevated serum creatinine * US ABDOMEN LIMITED(Performed 02/22/2021) Performed for Alcoholic cirrhosis of liver with ascites (HCC) * HEPATITIS C RNA QUANTITATIVE(Performed 02/13/2021) Performed for Compensated HCV cirrhosis (HCC) * PT-INR SLH(Performed 02/13/2021) Performed for Compensated HCV cirrhosis (HCC) * COMPREHENSIVE METABOLIC PANEL(Performed 02/13/2021) Performed for Compensated HCV cirrhosis (HCC) * CBC W/O DIFFERENTIAL(Performed 02/13/2021) Performed for Compensated HCV cirrhosis (HCC) * ALPHA FETOPROTEIN BLOOD TUMOR MARKER(Performed 02/13/2021) Performed for Compensated HCV cirrhosis (HCC) * PATHOLOGY TISSUE(Performed 04/28/2020) Performed for Alcoholic cirrhosis of liver with ascites (HCC), Chronic hepatitis C without hepatic coma (HCC) * PA COLONOSCOPY, DIAGNOSTIC(Performed 04/28/2020) Performed for Alcoholic cirrhosis of liver with ascites (HCC), Chronic hepatitis C without hepatic coma (HCC) * PA ED EGD FLEX TRANSORAL DX(Performed 04/28/2020) Performed for Alcoholic cirrhosis of liver with ascites (HCC), Chronic hepatitis C without hepatic coma (HCC) * EGD(Performed 04/28/2020) * ENDOSCOPY, COLON, SCREENING(Performed 04/28/2020) * US ABDOMEN LIMITED(Performed 04/28/2020) Performed for Alcoholic cirrhosis of liver with ascites (HCC), Chronic hepatitis C without hepatic coma (HCC) * HEPATITIS C RNA QUANTITATIVE(Performed 12/06/2019) Performed for Alcoholic cirrhosis of liver with ascites (HCC) * PT-INR SLH(Performed 12/06/2019) Performed for Alcoholic cirrhosis of liver with ascites (HCC) * COMPREHENSIVE METABOLIC PANEL(Performed 12/06/2019) Performed for Alcoholic cirrhosis of liver with ascites (HCC) * CBC W/O DIFFERENTIAL(Performed 12/06/2019) Performed for Alcoholic cirrhosis of liver with ascites (HCC) * ALPHA FETOPROTEIN BLOOD TUMOR MARKER(Performed 12/06/2019) Performed for Alcoholic cirrhosis of liver with ascites (HCC) * US ABDOMEN LIMITED(Performed 12/07/2018) Performed for Alcoholic cirrhosis of liver without ascites (HCC) * CRYOGLOBULIN QUALITATIVE(Performed 09/21/2018) Performed for Alcoholic cirrhosis of liver without ascites (HCC) * HEPATITIS C RNA QUANTITATIVE(Performed 09/21/2018) Performed for Alcoholic cirrhosis of liver without ascites (HCC) * PT-INR(Performed 09/21/2018) Performed for Alcoholic cirrhosis of liver without ascites (HCC) * CBC W/O DIFFERENTIAL(Performed 09/21/2018) Performed for Alcoholic cirrhosis of liver without ascites (HCC) * COMPREHENSIVE METABOLIC PANEL(Performed 09/21/2018) Performed for Alcoholic cirrhosis of liver without ascites (HCC) * ESOPHAGOGASTRODUODENOSCOPY (EGD) DIAGNOSTIC(Performed 05/29/2018) Performed for Alcoholic cirrhosis of liver with ascites (HCC) * EGD(Performed 05/29/2018) * US ABDOMEN LIMITED(Performed 05/29/2018) Performed for Chronic hepatitis C without hepatic coma (HCC) * HEPATITIS C RNA QUANTITATIVE(Performed 04/02/2018) Performed for Chronic hepatitis C without hepatic coma (HCC) * COMPREHENSIVE METABOLIC PANEL(Performed 04/02/2018) Performed for Chronic hepatitis C without hepatic coma (HCC) * CBC W AUTO DIFFERENTIAL(Performed 04/02/2018) Performed for Chronic hepatitis C without hepatic coma (HCC) * [id number] BLOOD(Performed 01/13/2018) Performed for Chronic hepatitis C without hepatic coma (HCC), Hepatic cirrhosis, unspecified hepatic cirrhosis type, unspecified whether ascites present (HCC) * CERULOPLASMIN(Performed 01/13/2018) Performed for Chronic hepatitis C without hepatic coma (HCC), Hepatic cirrhosis, unspecified hepatic cirrhosis type, unspecified whether ascites present (HCC) * FERRITIN(Performed 01/13/2018) Performed for Chronic hepatitis C without hepatic coma (HCC), Hepatic cirrhosis, unspecified hepatic cirrhosis type, unspecified whether ascites present (HCC) * HEPATITIS B SURFACE ANTIBODY(Performed 01/13/2018) Performed for Chronic hepatitis C without hepatic coma (HCC), Hepatic cirrhosis, unspecified hepatic cirrhosis type, unspecified whether ascites present (HCC) * ZINC BLOOD(Performed 01/13/2018) Performed for Chronic hepatitis C without hepatic coma (HCC), Hepatic cirrhosis, unspecified hepatic cirrhosis type, unspecified whether ascites present (HCC) * MAGNESIUM BLOOD(Performed 01/13/2018) Performed for Chronic hepatitis C without hepatic coma (HCC), Hepatic cirrhosis, unspecified hepatic cirrhosis type, unspecified whether ascites present (HCC) * HEPATITIS B DNA QUANT(Performed 01/13/2018) Performed for Chronic hepatitis C without hepatic coma (HCC), Hepatic cirrhosis, unspecified hepatic cirrhosis type, unspecified whether ascites present (HCC) * HEPATITIS B SURFACE ANTIGEN W RFLX CONFIRMATION(Performed 01/13/2018) Performed for Chronic hepatitis C without hepatic coma (HCC), Hepatic cirrhosis, unspecified hepatic cirrhosis type, unspecified whether ascites present (HCC) * PT-INR(Performed 01/13/2018) Performed for Chronic hepatitis C without hepatic coma (HCC), Hepatic cirrhosis, unspecified hepatic cirrhosis type, unspecified whether ascites present (HCC) * COMPREHENSIVE METABOLIC PANEL(Performed 01/13/2018) Performed for Chronic hepatitis C without hepatic coma (HCC), Hepatic cirrhosis, unspecified hepatic cirrhosis type, unspecified whether ascites present (HCC) * CBC W/O DIFFERENTIAL(Performed 01/13/2018) Performed for Chronic hepatitis C without hepatic coma (HCC), Hepatic cirrhosis, unspecified hepatic cirrhosis type, unspecified whether ascites present (HCC) * HIV-1 HIV-2 ANTIGEN/ANTIBODY W RFLX(Performed 01/13/2018) Performed for Chronic hepatitis C without hepatic coma (HCC), Hepatic cirrhosis, unspecified hepatic cirrhosis type, unspecified whether ascites present (HCC) * HEPATITIS C GENOTYPE(Performed 01/13/2018) Performed for Chronic hepatitis C without hepatic coma (HCC), Hepatic cirrhosis, unspecified hepatic cirrhosis type, unspecified whether ascites present (HCC) * HEPATITIS C RNA QUANTITATIVE(Performed 12/29/2017) * HEPATITIS C AB W/RFLX TO HCV RNA QN PCR(Performed 12/29/2017) Performed for Alcoholic cirrhosis of liver with ascites (HCC) * IRON + TIBC PANEL(Performed 12/29/2017) Performed for Alcoholic cirrhosis of liver with ascites (HCC) * MITOCHONDRIAL ANTIBODY SCREEN(Performed 12/29/2017) Performed for Alcoholic cirrhosis of liver with ascites (HCC) * IMMUNOGLOBULINS IGG/IGM/IGA PANEL(Performed 12/29/2017) Performed for Alcoholic cirrhosis of liver with ascites (HCC) * ELIZABETH BLOOD SCREEN W/REFLEX TITER(Performed 12/29/2017) Performed for Alcoholic cirrhosis of liver with ascites (HCC) * HEPATITIS B CORE ANTIBODY TOTAL(Performed 12/29/2017) Performed for Alcoholic cirrhosis of liver with ascites (HCC) * HEPATITIS A ANTIBODY(Performed 12/29/2017) Performed for Alcoholic cirrhosis of liver with ascites (HCC) * ALPHA FETOPROTEIN BLOOD TUMOR MARKER(Performed 12/29/2017) Performed for Alcoholic cirrhosis of liver with ascites (HCC) * PT-INR(Performed 12/29/2017) Performed for Alcoholic cirrhosis of liver with ascites (HCC) * US ABDOMEN LIMITED(Performed 12/25/2017) Performed for Alcoholic cirrhosis of liver with ascites (HCC) Results * ALPHA FETOPROTEIN + AFP-L3 (09/09/2023 8:47 AM CDT) Alpha-Fetoprotein 2.7 1.6 - 4.5 ng/mL [facility] Yrisl-Dqdechimfpy-G 3 SEE NOTE 0.5 - 9.9 % [facility] Comment: NO VALUE DETERMINED The micro-total analysis system (Qool) employs microchip capillary electrophoresis to quantitatively measure AFP and AFP-L3% by immunochemical techniques. The assay principle involves DNA-coupled antibodies and dye labeled antibodies, which react with proteins in liquid phase within the microchannels. Both analytes are quantified using laser-induced fluorescence. Instrument and associated reagents are supplied by [employer] [place], [place], [place]. Patients with elevated AFP-L3% values (>=10%) have been shown to have an increased risk of developing hepatocellular carcinoma (HCC). In a selected group of patients, the risk of developing HCC was 48.8% with an elevated AFP-L3% and was 7.0% with a negative AFP-L3% result. Limitations of Procedure: 1. The AFP-L3% value is not calculated when the AFP-L3 concentration is below 0.3 ng/mL. In such cases the AFP-L3% result field will indicate NO VALUE DETERMINED 2. Heterophilic antibodies in human serum can react with the immunoglobulins included in the assay components causing interference with in vitro immunoassays. Samples from patients routinely exposed to animals or animal serum products can demonstrate this type of interference and can potentially cause an anomalous result. The [employer] System has been formulated to minimize the risk of the interference; however, potential interactions between rare sera and ingredients can occur. 3. For diagnostic purposes, the results obtained from this assay should always be used and interpreted in conjunction with clinical examination, patient medical history, and other findings. 4. can cause high values of AFP-L3% and AFP is not interpretable in females. 5. AFP producing tumors other than HCC can show high values of AFP-L3% and AFP. 6. Samples from patients having acute hepatitis and fulminant hepatitis can show high values of AFP-L3% and AFP. 7. It is recommended that this assay be used in conjunction with imaging studies for clinical diagnosis. 8. Liver diseases caused by other etiologies such as alcoholic liver disease, hemachromatosis, Primitivo's disease, autoimmune hepatitis and steatohepatisis have not been studied with the assay. 9. The assay is linear for AFP concentration of 0.3 to 1000 ng/mL. 10. Values obtained with different assay methods or kits cannot be used interchangeably. Test Performed at: [facility] [address] [place] [address] JOI HERNANDEZ MD,PHD,WENCESLAO Blood BLOOD SPECIMEN / Unknown 09/09/2023 8:47 AM CDT 09/09/2023 8:48 AM CDT Valente Jett MD LAB - CHEMISTRY JOSS DESAI [facility] Organization Address City/State/ZIP Co de Phone Number [facility] [address] [place] [address] * CBC WITH DIFFERENTIAL (09/09/2023 8:47 AM CDT) Only the most recent of3 resultswithin the time period is included. White Blood Cell Count 8.0 3.8 - 10.8 Thousand/u L [facility] RBC 4.68 4.20 - 5.80 Million/uL [facility] Hemoglobin 15.2 13.2 - 17.1 g/dL [facility] Hematocrit 44.6 38.5 - 50.0 % [facility] MCV 95.3 80.0 - 100.0 fL [facility] MCH 32.5 27.0 - 33.0 pg [facility] MCHC 34.1 32.0 - 36.0 g/dL [facility] RDW 11.9 11.0 - 15.0 % [facility] Platelet Count 216 140 - 400 Thousand/u L [facility] MPV 11.3 7.5 - 12.5 fL [facility] Neutrophil Absolute 6200 1500 - 7800 cells/uL [facility] Absolute Bands [facility] Metamyelocytes Absolute [facility] Myelocytes Absolute [facility] Absolute Prolymphocytes [facility] Lymphocytes Absolute 952 850 - 3900 cells/uL [facility] Absolute Monocytes 680 200 - 950 cells/uL [facility] Eosinophils Absolute 112 15 - 500 cells/uL [facility] Basophils Absolute 56 0 - 200 cells/uL [facility] Absolute Blasts [facility] nRBC Absolute [facility] Granulocytes % 77.5 % [facility] Band Neutrophil [facility] Metamyelocytes [facility] Myelocytes [facility] Promyelocytes [facility] Lymphocytes % 11.9 % [facility] Lymphocyte Reactive [facility] Monocytes % 8.5 % [facility] Eosinophils % 1.4 % [facility] Basophils % 0.7 % [facility] Comment: REPORT COMMENT: FASTING:YES Test Performed at: [facility] [place] [address] GERARD DUDLEY MD Blasts [facility] nRBC [facility] Comments [facility] Comment: REPORT COMMENT: FASTING:YES Test Performed at: [facility] [id number] [place] [address] GERARD DUDLEY MD Blood BLOOD SPECIMEN / Unknown 09/09/2023 8:47 AM CDT 09/09/2023 8:48 AM CDT Valente Jett MD LAB - HEMATOLOGY ORD ERABLES Performing Organization Address [facility] Co de Phone Number [facility] [address] [place] [address] * COMPREHENSIVE METABOLIC PANEL (09/09/2023 8:47 AM CDT) Only the most recent of8 resultswithin the time period is included. Glucose 86 65 - 99 mg/dL [facility] Comment: Fasting reference interval BUN 12 7 - 25 mg/dL [facility] Creatinine 1.09 0.70 - 1.35 mg/dL [facility] eGFR by Cystatin C 75 > OR = 60 mL/min/1. 73m2 [facility] BUN/Creatinine Ratio SEE NOTE: 6 - 22 (calc) [facility] Comment: Not Reported: BUN and Creatinine are within reference range. Sodium 139 135 - 146 mmol/L [facility] Potassium 4.2 3.5 - 5.3 mmol/L [facility] Chloride 103 98 - 110 mmol/L [facility] CO2 27 20 - 32 mmol/L [facility] Calcium 9.7 8.6 - 10.3 mg/dL [facility] Protein Total 7.2 6.1 - 8.1 g/dL [facility] Albumin 4.6 3.6 - 5.1 g/dL [facility] Globulin Total 2.6 1.9 - 3.7 g/dL (calc) [facility] Albumin/Globulin Ratio 1.8 1.0 - 2.5 (calc) [facility] Bilirubin Total 1.1 0.2 - 1.2 mg/dL [facility] Alkaline Phosphatase 97 35 - 144 U/L [facility] AST 22 10 - 35 U/L [facility] ALT 19 9 - 46 U/L [facility] Comment: Test Performed at: [facility] [id number] [place] [address] GERARD DUDLEY MD Blood BLOOD SPECIMEN / Unknown 09/09/2023 8:47 AM CDT 09/09/2023 8:48 AM CDT Valente Jett MD LAB - CHEMISTRY ORDE GISELLE Performing Organization Address City/[facility] Co de Phone Number [facility] [address] [place] [phone] * PT-INR (09/09/2023 8:45 AM CDT) Only the most recent of7 resultswithin the time period is included. Pathologist [facility] INR 1.0 [facility] Comment: Reference Range 0.9-1.1 Moderate-intensity Warfarin Therapy 2.0-3.0 Higher-intensity Warfarin Therapy 3.0-4.0 PT 10.6 9.0 - 11.5 sec [facility] Comment: For additional information, please refer to http://education.Rezdy/faq/WYK286 (This link is being provided for informational/ educational purposes only.) REPORT COMMENT: FASTING:NO Test Performed at: [address] [address] GERARD DUDLEY MD Blood BLOOD SPECIMEN / Unknown 09/09/2023 8:45 AM CDT 09/09/2023 8:46 AM CDT Valente Jett MD LAB - COAGULATION OR DERABLES Performing Organization Address [facility] Co de Phone Number [address] [address] * ALPHA FETOPROTEIN BLOOD TUMOR MARKER (01/03/2023 1:30 PM CDT) Only the most recent of4 resultswithin the time period is included. [facility] Alpha-Fetoprotei n Tumor Marker 3.1 <6.1 ng/mL [facility] Comment: This test was performed using the [place] chemiluminescent method. Values obtained from different assay methods cannot be used interchangeably. AFP levels, regardless of value, should not be interpreted as absolute evidence of the presence or absence of disease. REPORT COMMENT: FASTING:NO Test Performed at: [facility] [address] [address] [place] Blood BLOOD SPECIMEN / Unknown 01/03/2023 1:30 PM CDT 01/03/2023 1:30 PM CDT Valente Jett MD LAB - CHEMISTRY JOSS DESAI Performing Organization Address [facility]/ZIP Co de Phone Number [address] [address] * (ABNORMAL) CBC W/O DIFFERENTIAL (01/03/2023 1:30 PM CDT) Only the most recent of5 resultswithin the time period is included. [facility] White Blood Cell Count 7.0 3.8 - 10.8 Thousand/u L [facility] RBC 4.56 4.20 - 5.80 Million/uL [facility] Hemoglobin 15.2 13.2 - 17.1 g/dL [facility] Hematocrit 43.5 38.5 - 50.0 % [facility] MCV 95.4 80.0 - 100.0 fL [facility] MCH 33.3(H) 27.0 - 33.0 pg [facility] MCHC 34.9 32.0 - 36.0 g/dL [facility] RDW 11.8 11.0 - 15.0 % [facility] Platelet Count 208 140 - 400 Thousand/u L [facility] MPV 11.3 7.5 - 12.5 fL [facility] Comment: Test Performed at: [facility] [id number] [place] [address] GERARD DUDLEY MD Blood BLOOD SPECIMEN / Unknown 01/03/2023 1:30 PM CDT 01/03/2023 1:30 PM CDT Valente Jett MD LAB - HEMATOLOGY ORD ERABLES [facility] [address] [place] [phone] * (ABNORMAL) BASIC METABOLIC PANEL (CALCIUM TOTAL) (02/12/2022 8:04 AM CUSTOMER SUPPORT COORDINATOR) Only the most recent of3 resultswithin the time period is included. [facility] BUN 14 7 - 26 mg/dL 02/12/2022 9:13 AM [facility] Creatinine 1.14 0.71 - 1.16 mg/dL 02/12/2022 9:13 AM [facility] Sodium 137 136 - 145 mmol/L 02/12/2022 9:13 AM [facility] Potassium 3.8 3.5 - 4.5 mmol/L 02/12/2022 9:13 AM [facility] Chloride 101 98 - 107 mmol/L 02/12/2022 9:13 AM CUSTOMER SUPPORT COORDINATOR [facility] CO2 27 22 - 29 mmol/L 02/12/2022 9:13 AM [facility] Glucose 91 70 - 115 mg/dL 02/12/2022 9:13 AM [facility] Calcium 9.3 8.4 - 10.2 mg/dL 02/12/2022 9:13 AM [facility] Anion Gap 13 8 - 18 02/12/2022 9:13 AM [facility] BUN/Creatinine Ratio 12 7 - 23 02/12/2022 9:13 AM [facility] Osmolality Calculated 284 270 - 300 mOsm/kg 02/12/2022 9:13 AM [facility] eGFR by CKD-EPI 72(L) >=90 mL/min/1.7 3 m2 02/12/2022 9:13 AM [facility] Blood BLOOD SPECIMEN / Unknown Lab Venipuncture / Unknown 02/12/2022 8:04 AM CUSTOMER SUPPORT COORDINATOR 02/12/2022 8:44 AM CUSTOMER SUPPORT COORDINATOR aVlente Jett MD LAB - CHEMISTRY ORDE [facility] Organization Address City/State/ZIP Co de Phone Number [facility] [address] [place] [address], [facility] [phone] * US ABDOMEN LIMITED (02/22/2021 8:34 AM CUSTOMER SUPPORT COORDINATOR) Only the most recent of5 resultswithin the time period is included. Anatomical Region Laterality Modality Abdomen Ultrasound 02/22/2021 8:31 AM CUSTOMER SUPPORT COORDINATOR Impressions 02/22/2021 8:49 AM CUSTOMER SUPPORT COORDINATOR IMPRESSION: 1.Hepatic cirrhosis without discrete hepatic lesion or intrahepatic biliary dilatation. 2.Unchanged 6 mm gallbladder polyp. No evidence of cholelithiasis or acute cholecystitis. Report drafted by Joes Curtis (resident) Dr. IRAM Lozada MD, FRCR have personally reviewed and interpreted this examination/study. This report was electronically signed by IRAM PEREZ MD, FRCR on 02/22/2021 8:49 AM . Narrative 02/22/2021 8:49 AM CUSTOMER SUPPORT COORDINATOR EXAM: Limited abdominal ultrasound HISTORY: K70.31: Alcoholic cirrhosis of liver with ascites COMPARISON: Ultrasound abdomen dated 04/28/2020 FINDINGS: The liver has a coarse echotexture and nodular surface. Liver echogenicity is normal. No discrete hepatic mass or intrahepatic biliary dilatation is seen. Color Doppler evaluation demonstrates patency of the hepatic and portal veins. No gallstone or pericholecystic fluid is seen. A 0.2 x 0.6 cm polyp in the gallbladder is redemonstrated, unchanged size. The gallbladder wall is not thickened, measures 2 mm. Sonographic Ruiz's sign is negative. The common bile duct is nondilated, measures 3 mm. The right kidney measures 9.3 x 4.6 x 4.2 cm. Limited views of the right kidney show no hydronephrosis, nephrolithiasis, or solid renal mass. The pancreas is obscured by overlying bowel gas. The spleen measures 12 cm. No ascites is present. Procedure Note Iram Perez MD - 02/22/2021 EXAM: Limited abdominal ultrasound HISTORY: K70.31: Alcoholic cirrhosis of liver with ascites COMPARISON: Ultrasound abdomen dated 04/28/2020 FINDINGS: The liver has a coarse echotexture and nodular surface. Liverechogenicity is normal. No discrete hepatic mass or intrahepatic biliary dilatation is seen.Color Doppler evaluation demonstrates patency of the hepatic and portal veins. No gallstone or pericholecystic fluid is seen. A 0.2 x 0.6 cm polyp inthe gallbladder is redemonstrated, unchanged size. The gallbladder wall isnot thickened, measures 2 mm. Sonographic Ruiz's sign is negative. The common bile duct is nondilated, measures 3 mm. The right kidney measures 9.3 x 4.6 x 4.2 cm. Limited views of the right kidney show no hydronephrosis, nephrolithiasis, or solid renal mass. The pancreas is obscured by overlying bowel gas. The spleen measures 12 cm.No ascites is present. IMPRESSION: 1.Hepatic cirrhosis without discrete hepatic lesion or intrahepatic biliary dilatation. 2.Unchanged 6 mm gallbladder polyp. No evidence of cholelithiasis oracute cholecystitis. Report drafted by Jose Curtis (resident) Dr. IRAM Lozada MD, FRCR have personally reviewedand interpreted this examination/study. This report was electronically signed by IRAM PEREZ MD, CR on 02/22/2021 8:49 AM . Valente Jett MD US ORDERABLES * PT-INR [facility] (02/13/2021 9:33 AM CUSTOMER SUPPORT COORDINATOR) Only the most recent of2 resultswithin the time period is included. PT 13.3 12.1 - 14.8 Seconds 02/13/2021 10:37 AM CUSTOMER SUPPORT COORDINATOR [facility] LABORATORY [facility] INR 1.0 See Comment 02/13/2021 10:37 AM [facility]ORY [facility] Comment:The suggested therap eutic range for standard coumadin (warfarin) therapy is an INR of 2.0-3.0. For high-risk patients (Mechanical Mitral Valve Prosthesis, etc.), the suggested prophylactic therapeutic range is an INR of 2.5-3.5. Blood BLOOD SPECIMEN / Unknown Lab Venipuncture / Unknown 02/13/2021 9:33 AM CUSTOMER SUPPORT COORDINATOR 02/13/2021 10:23 AM CUSTOMER SUPPORT COORDINATOR Valente Jett MD LAB - COAGULATION OR DERABLES [facility] H[facility] [address] [place] [id number], [facility] [phone] * HEPATITIS C RNA QUANTITATIVE (02/13/2021 9:33 AM CUSTOMER SUPPORT COORDINATOR) Only the most recent of5 resultswithin the time period is included. Pathologist [facility] [place] Hepatitis C RNA PCR, Interp Not detected Not detected 02/15/2021 12:49 PM CUSTOMER SUPPORT COORDINATOR [facility] Blood BLOOD SPECIMEN / Unknown Lab Venipuncture / Unknown 02/13/2021 9:33 AM CUSTOMER SUPPORT COORDINATOR 02/13/2021 10:23 AM CUSTOMER SUPPORT COORDINATOR Narrative [facility] - 02/15/2021 12:49 PM CUSTOMER SUPPORT COORDINATOR The Hepatitis C viral (HCV) RNA analysis utilized a serum sample, real-time reverse grain distributor PCR, and is reported as Not Detected, Detected (<12 IU/mL), Quantity (IU/mL) or >30,000,000 IU/mL. The limit of quantitation of the assay is 12 IU/mL (100% of samples with this HCV RNA level were detected). The linear range is from 12 IU/mL to 30,000,000 IU/mL. Values less than 12 IU/mL are reported as Detected (<12 IU/mL). Values greater than 30,000,000 IU/mL are reported as >30,000,000 IU/mL. The detection/quantitation of HCV RNA in serum is based on the isolation of HCV RNA with reverse grain distributor of genomic HCV RNA followed by real-time PCR in the presence of an unrelated RNA internal control. The internal control ensures that RNA is isolated, and that no general significant inhibitors of the RT-PCR process are present. The analysis was performed using a U.S. FDA approved test methodology (Tabblo Real Time HCV). Valente Jett MD LAB - CHEMISTRY JOSS [facility] Organization Address City/State/ZIP Co de Phone Number [facility] [address] Count Includes [facility] [address] [place] [phone] * PATHOLOGY TISSUE (04/28/2020 12:46 PM CUSTOMER SUPPORT COORDINATOR) Case Report Surgical Pathology Report Case: [id number] Authorizing Provider: Valente Jett MD Collected: 04/28/2020 12:46 PM Ordering Location: [facility] ENDOSCOPY Received: 04/28/2020 01:36 PM Pathologist: Meena Clarke MD Specimens: A) - Colon, Cecal Polyps x 2 B) - Large Intestine, Transverse Colon, polyp x 2 C) - Large Intestine, Left/Descending Colon, polyp x 2 05/01/2020 11:46 AM [facility] Final Diagnosis Large intestine, cecal polyps x2, biopsy (A): - Tubular adenoma(s), fragmented Large intestine, transverse colon, polyp x2, biopsy (B): - Benign polypoid mucosa Large intestine, left/descending colon, polyp x2, biopsy (E): - Hyperplastic polyps 05/01/2020 11:46 AM [facility] Microscopic Description and Comment Microscopic examination substantiates the final diagnosis. 05/01/2020 11:46 AM [facility] Clinical History The patient is a 59 year old man who presents screening for colorectal malignant neoplasm. Operative procedure/findings: Colonoscopy - 2 mm cecal polyp, resected and retrieved; two 3-5 mm transverse colon polyps, resected and retrieved; two 3-5 mm descending colon polyps, resected and retrieved. 05/01/2020 11:46 AM [facility] Gross Description The requisition and specimen(s) are identified with the patient's name, Don Carbajal. Received in formalin, specimen A , are 3 pink-lehman soft tissues 0.5-0.6 cm in greatest dimension and 0.9 x 0.5 x 0.3 cm in aggregate. The specimen is submitted in toto in cassette A1. Received in formalin, specimen B are 2 pink-lehman soft tissues 0.3 x 0.1 x 0.1 cm and 0.4 x 0.3 x 0.2 cm, submitted in toto in cassette B1. Received in formalin, specimen C are 3 lehman pink soft tissues 0.1-0.7 cm in greatest dimension and 0.7 x 0.5 x 0.2 cm in aggregate. The specimen is submitted in toto in cassette C1. 05/01/2020 11:46 AM [facility] Disclaimer The performance characteristics of all immunohistochemical and indirect immunofluorescence stains (if any) cited in this report were determined by the Histopathology Laboratory of [facility]. Some of these tests were developed by our own laboratory and have not been cleared or approved by the US Food and Drug Administration. The FDA does not require this test to go through premarket FDA review. These tests are used for clinical purposes. They should not be regarded as investigational or for research. This laboratory is certified under the Clinical Laboratory Improvement Amendments (CLIA) as qualified to perform high complexity clinical laboratory testing. This case has been personally reviewed and interpreted by the attending (teaching) pathologist. 05/01/2020 11:46 AM [facility] Embedded Images 05/01/2020 11:46 AM [facility] Biopsy, NOS COLON PART / Unknown 04/28/2020 12:46 PM CUSTOMER SUPPORT COORDINATOR 04/28/2020 1:36 PM CUSTOMER SUPPORT COORDINATOR Comment:Pre-op diagnosis: K70.31 Alcoholic cirrhosis of liver with ascites B18.2 Chronic hepatitis C without hepatic coma Biopsy, NOS (Large Intestine, Transverse Colon) 04/28/2020 12:56 PM CUSTOMER SUPPORT COORDINATOR 04/28/2020 1:36 PM CUSTOMER SUPPORT COORDINATOR Comment:Pre-op diagnosis: K70.31 Alcoholic cirrhosis of liver with ascites B18.2 Chronic hepatitis C without hepatic coma Biopsy, NOS (Large Intestine, Left/Descending Colon) 04/28/2020 1:06 PM CUSTOMER SUPPORT COORDINATOR 04/28/2020 1:36 PM CUSTOMER SUPPORT COORDINATOR Comment:Pre-op diagnosis: K70.31 Alcoholic cirrhosis of liver with ascites B18.2 Chronic hepatitis C without hepatic coma Valente Jett MD LAB - PATHOLOGY/CYTO LOGY ORDERABLES Performing Organization Address City/State/[facility] Co de Phone Number [facility] [address] [id number] [phone] * EGD (04/28/2020 12:11 PM CUSTOMER SUPPORT COORDINATOR) Report Endoscopy POC Endoscopy Department Report _ Patient Name: Don Carbajal Procedure Date: 04/28/2020 12:11 PM Date of : 1960 Classification: Outpatient Gender: Male Ethnicity: Not or Race: White _ Providers: Valente Jett Referring MD: Leonardo Isidro (Referring ) Procedure: Colonoscopy Indications: Screening for colorectal malignant neoplasm (last colonoscopy was more than 10 years ago) Medications: Propofol per Anesthesia, See the Anesthesia note for documentation of the administered medications Description of Procedure: After I obtained informed consent, the scope was passed under direct vision. Throughout the procedure, the patient's blood pressure, pulse, and oxygen saturations were monitored continuously. The Colonoscope was introduced through the anus and advanced to the cecum, identified by appendiceal orifice and ileocecal valve. The colonoscopy was performed without difficulty. The patient tolerated the procedure well. The quality of the bowel preparation was good. Findings: The perianal and digital rectal examinations were normal. A 2 mm polyp was found in the cecum. The polyp was sessile. The polyp was removed with a jumbo cold forceps. Resection and retrieval were complete. A 8 mm polyp was found in the cecum. The polyp was flat. The polyp was removed with a cold snare. Resection and retrieval were complete. To close a defect after polypectomy, one hemostatic clip was successfully placed. Two sessile polyps were found in the transverse colon. The polyps were 3 to 4 mm in size. These polyps were removed with a jumbo cold forceps. Resection and retrieval were complete. Two sessile polyps were found in the descending colon. The polyps were 3 to 5 mm in size. These polyps were removed with a cold snare. Resection and retrieval were complete. Internal hemorrhoids were found during retroflexion. The hemorrhoids were small. Estimated Blood Loss: Estimated blood loss: none. Complications: No immediate complications. Impression: - One 2 mm polyp in the cecum, removed with a jumbo cold forceps. Resected and retrieved. - One 8 mm polyp in the cecum, removed with a cold snare. Resected and retrieved. Clip was placed. - Two 3 to 4 mm polyps in the transverse colon, removed with a jumbo cold forceps. Resected and retrieved. - Two 3 to 5 mm polyps in the descending colon, removed with a cold snare. Resected and retrieved. - Internal hemorrhoids. Recommendation: - Patient has a contact number available for emergencies. The signs and symptoms of potential delayed complications were discussed with the patient. Return to normal activities tomorrow. Written discharge instructions were provided to the patient. - Discharge patient to home (ambulatory). - Resume previous diet. - No aspirin, ibuprofen, naproxen, or other non-steroidal anti-inflammatory drugs for 5 days after polyp removal. - Await pathology results. - Repeat colonoscopy in 3 - 5 years for surveillance based on pathology results. - Return to referring physician at appointment to be scheduled. - The findings and recommendations were discussed with the patient. Attending Participation: I personally performed the entire procedure. Procedure Code(s): --- Professional --- 87273, Colonoscopy, flexible; with removal of tumor(s), polyp(s), or other lesion(s) by snare technique 31334, 59, Colonoscopy, flexible; with biopsy, single or multiple Diagnosis Code(s): --- Professional --- K63.5, Polyp of colon Z12.11, Encounter for screening for malignant neoplasm of colon K64.8, Other hemorrhoids CPT copyright 2019 [employer]. All rights reserved. The codes documented in this report are preliminary and upon in flight refueling system repairer review may be revised to meet current compliance requirements. Valente Jett, 04/28/2020 1:47:07 PM Note Initiated On: 04/28/2020 12:11 PM Number of Addenda: [address] [place] 04/28/2020 12:1 1 PM CUSTOMER SUPPORT COORDINATOR Valente Jett MD GI PROCEDURE ORDERAB LES [facility] * ENDOSCOPY, COLON, SCREENING (04/28/2020 12:08 PM CUSTOMER SUPPORT COORDINATOR) Report Endoscopy POC Endoscopy Department Report _ Patient Name: Don Carbajal Procedure Date: 04/28/2020 12:08 PM Date of : 1960 Classification: Outpatient Gender: Male Ethnicity: Not or Race: White _ Providers: Valente Jett Referring MD: Leonardo Isidro (Referring MD) Procedure: Upper GI endoscopy Indications: 1st degree variceal surveillance (known small varices, no prior bleeding) Medications: Propofol per Anesthesia, See the Anesthesia note for documentation of the administered medications Description of Procedure: Pre-Anesthesia Assessment: - Pre-procedure physical examination revealed no contraindications to sedation. - ASA Grade Assessment: II - A patient with mild systemic disease. - After reviewing the risks and benefits, the patient was deemed in satisfactory condition to undergo the procedure. - The anesthesia plan was to use monitored anesthesia care (MAC). - Immediately prior to administration of medications, the patient was re-assessed for adequacy to receive sedatives. After obtaining informed consent, the endoscope was passed under direct vision. Throughout the procedure, the patient's blood pressure, pulse, and oxygen saturations were monitored continuously. The [id number]-[id number] was introduced through the mouth, and advanced to the second part of duodenum. The upper GI endoscopy was accomplished without difficulty. The patient tolerated the procedure well. Findings: There is no endoscopic evidence of varices in the lower third of the esophagus. Striped mildly erythematous mucosa was found in the gastric antrum. The examined duodenum was normal. Estimated Blood Loss: Estimated blood loss: none. Complications: No immediate complications. Impression: - Erythematous mucosa in the antrum. - Normal examined duodenum. - No specimens collected. Recommendation: - Perform a colonoscopy today. - Repeat upper endoscopy in 3 years for surveillance. Attending Participation: I personally performed the entire procedure. Procedure Code(s): --- Professional --- 55255, Esophagogastroduod enoscopy, flexible, transoral; diagnostic, including collection of specimen(s) by brushing or washing, when performed (separate procedure) Diagnosis Code(s): --- Professional --- K31.89, Other diseases of stomach and duodenum I85.00, Esophageal varices without bleeding CPT copyright 2019 [employer]. All rights reserved. The codes documented in this report are preliminary and upon in flight refueling system repairer review may be revised to meet current compliance requirements. Valente Jett, 04/28/2020 1:42:20 PM Note Initiated On: 04/28/2020 12:08 PM Number of Addenda: [address] 04/28/2020 12:0 8 PM CUSTOMER SUPPORT COORDINATOR Valente Jett MD GI PROCEDURE ORDERAB LES Performing Organization Address [facility] Co de Phone Number [facility] * CRYOGLOBULIN QUALITATIVE (09/21/2018 8:08 AM CDT) Cryoglobulin Qualitative Negative Negative [facility] Comment: The Cryocrit is primarily intended for following a patient with previously defined and quantitated cryoglobulins. The cryocrit may consist of cryoglobulins, fibrins, complement, or mixtures of these. If not previously characterized, consider ordering test code 77505, Cryoglobulin Screen with Reflex to Cryoglobulin Profile, Serum. Test Performed at: [facility] [address] [place] [address] JANY DENTON MD,PHD % Cryocrit [facility] Comment: Test Performed at: [facility] [address] [place] [address] JANY DENTON MD,PHD Blood BLOOD SPECIMEN / Unknown 09/21/2018 8:08 AM CDT 09/21/2018 8:10 AM CDT Valente Jett MD LAB - CHEMISTRY ORDE RABHARRISON Performing Organization Address City/[facility]/ZIP Co de Phone Number [facility] [address] [place] [address] * EGD (05/29/2018 11:51 AM CDT) Report Endoscopy POC Endoscopy Department Report __ _ Patient Name: Don Carbajal Procedure Date: 05/29/2018 11:51 AM Date of : 1960 Classification: Outpatient Gender: Male __ _ Providers: Bryan Gerardo (Fellow) Referring MD: Leonardo Isidro MD (Referring MD) Procedure: Upper GI endoscopy Indications: Cirrhosis rule out esophageal varices Medications: Monitored Anesthesia Care Comorbidities Hepatitis C Description of Procedure: Pre-Anesthesia Assessment: - Prior to the procedure, a History and Physical was performed, and patient medications and allergies were reviewed. The patient's tolerance of previous anesthesia was also reviewed. The risks and benefits of the procedure and the sedation options and risks were discussed with the patient. All questions were answered, and informed consent was obtained. Prior Anticoagulants: The patient has taken no previous anticoagulant or antiplatelet agents. ASA Grade Assessment: IV - A patient with severe systemic disease that is a constant threat to life. After reviewing the risks and benefits, the patient was deemed in satisfactory condition to undergo the procedure. - Prior to the procedure, a History and Physical was performed, and patient medications and allergies were reviewed. The patient's tolerance of previous anesthesia was also reviewed. The risks and benefits of the procedure and the sedation options and risks were discussed with the patient. All questions were answered, and informed consent was obtained. Prior Anticoagulants: The patient has taken no previous anticoagulant or antiplatelet agents. ASA Grade Assessment: IV - A patient with severe systemic disease that is a constant threat to life. After reviewing the risks and benefits, the patient was deemed in satisfactory condition to undergo the procedure. After obtaining informed consent, the endoscope was passed under direct vision. Throughout the procedure, the patient's blood pressure, pulse, and oxygen saturations were monitored continuously. The Endoscope was introduced through the mouth, and advanced to the second part of duodenum. The upper GI endoscopy was accomplished without difficulty. The patient tolerated the procedure well. Findings: Esophagogastric landmarks were identified: the Z-line was found at 40 cm, the gastroesophageal junction was found at 40 cm and the lower esophageal sphincter was found at 40 cm from the incisors. Small (< 5 mm) varices were found in the lower third of the esophagus. Moderate gastric antral vascular ectasia without bleeding was present in the stomach. Mild portal hypertensive gastropathy was found in the gastric fundus. Diffuse mild duodenopathy were found in the entire duodenum. Estimated Blood Loss: Estimated blood loss: none. Complications: No immediate complications. Impression: - Esophagogastric landmarks identified. - Small (< 5 mm) esophageal varices. - Gastric antral vascular ectasia without bleeding. - Portal hypertensive gastropathy. - Mucosal changes in the duodenum. - No specimens collected. Recommendation: - Patient has a contact number available for emergencies. The signs and symptoms of potential delayed complications were discussed with the patient. Return to normal activities tomorrow. Written discharge instructions were provided to the patient. - Resume previous diet. - Continue present medications. - Repeat upper endoscopy in 1 years for surveillance. - Return to GI office as previously scheduled. Attending Participation: I was present and participated during the entire procedure from insertion to removal of the endoscope. Procedure Code(s): --- Professional --- 83086, Esophagogastroduode noscopy, flexible, transoral; diagnostic, including collection of specimen(s) by brushing or washing, when performed (separate procedure) Diagnosis Code(s): --- Professional --- K74.60, Unspecified cirrhosis of liver I85.10, Secondary esophageal varices without bleeding K31.819, Angiodysplasia of stomach and duodenum without bleeding K76.6, Portal hypertension K31.89, Other diseases of stomach and duodenum CPT copyright 2016 [employer]. All rights reserved. The codes documented in this report are preliminary and upon in flight refueling system repairer review may be revised to meet current compliance requirements. Valente Jett, 05/29/2018 12:18:12 PM Note Initiated On: 05/29/2018 11:51 AM Number of Addenda: 0 [facility] [address] [place] [address] [facility]ATION 05/29/2018 11:5 1 AM CDT Bryan Mathews MD GI PROCEDURE ORDER MARGOTH Roxie MUSE * HIV-1 HIV-2 ANTIGEN/ANTIBODY W RFLX (01/13/2018 9:17 AM CUSTOMER SUPPORT COORDINATOR) HIV Screen 4th Generation w Reflex NON-REACT MARIO NON-REACT MARIO [facility] Comment: HIV-1 antigen and HIV-1/HIV-2 antibodies were not detected. There is no laboratory evidence of HIV infection. PLEASE NOTE: This information has been disclosed to you from records whose confidentiality may be protected by state law. If your state requires such protection, then the state law prohibits you from making any further disclosure of the information without the specific written consent of the person to whom it pertains, or as otherwise permitted by law. A general authorization for the release of medical or other information is NOT sufficient for this purpose. For additional information please refer to http://education.Rezdy/faq/IMB395 (This link is being provided for informational/ educational purposes only.) The performance of this assay has not been clinically validated in patients less than 2 years old. Test Performed at: [facility] [address] [place] [address] AFRICA GUERRERO DO,MPH Blood BLOOD SPECIMEN / Unknown 01/13/2018 9:17 AM CUSTOMER SUPPORT COORDINATOR 01/13/2018 9:18 AM CUSTOMER SUPPORT COORDINATOR Valente Jett MD LAB - SEROLOGY ORDER MARGOTH [facility] [address] [place] [address] * HEPATITIS C GENOTYPE (01/13/2018 9:17 AM CUSTOMER SUPPORT COORDINATOR) Hepatitis C Virus Genotype LIPA 1a [facility] Comment: The method used in this test is RT-PCR and reverse hybridization (Line Probe) of the 5' UTR and core region of the HCV genome. The analytical performance characteristics of this assay have been determined by [facility]. The modifications have not been cleared or approved by the FDA. This assay has been validated pursuant to the CLIA regulations and is used for clinical purposes. For additional information, please refer to http://education.Kamibu.VIEO /faq/HCVGenotyping (This link id being provided for informational/ educational purposes only.) Test Performed at: [facility] [address] [place] [address] Aleksandra RIZVI Blood BLOOD SPECIMEN / Unknown 01/13/2018 9:17 AM CUSTOMER SUPPORT COORDINATOR 01/13/2018 9:18 AM CUSTOMER SUPPORT COORDINATOR Valente Jett MD LAB - CHEMISTRY JOSS DESAI Performing Organization Address [facility] Co de Phone Number [facility] [address] [place] [address] * HEPATITIS B QUANT PCR (01/13/2018 9:17 AM CUSTOMER SUPPORT COORDINATOR) [facility] Hepatitis B Virus DNA <10 NOT DETECTED NOT DETECTED IU/mL [facility] Hepatitis B Virus DNA <1.00 NOT DETECTED NOT DETECTED Log IU/mL [facility] Comment: This test was performed using Real-Time Polymerase Chain Reaction. Reportable Range: 10 IU/mL to 1,000,000,000 IU/mL. (1.00 Log IU/mL to 9.00 Log IU/mL). The analytical performance characteristics of this assay have been determined by [facility]. The modifications have not been cleared or approved by the FDA. This assay has been validated pursuant to the CLIA regulations and is used for clinical purposes. REPORT COMMENT: FASTING:NO Test Performed at: [facility] [place] [address] [place] [address] AFRICA GUERRERO DO,MPH Blood BLOOD SPECIMEN / Unknown 01/13/2018 9:17 AM CUSTOMER SUPPORT COORDINATOR 01/13/2018 9:18 AM CUSTOMER SUPPORT COORDINATOR Valente Jett MD LAB - CHEMISTRY JOSS [facility] Performing Organization Address [facility] Co de Phone Number [facility] [address] [place] [address] * ZINC BLOOD (01/13/2018 9:17 AM CUSTOMER SUPPORT COORDINATOR) [facility] Zinc 86 60 - 130 mcg/dL [facility] Comment: This test was developed and its analytical performance characteristics have been determined by [facility]. It has not been cleared or approved by the US Food and Drug Administration. This assay has been validated pursuant to the CLIA regulations and is used for clinical purposes. Test Performed at: [facility] [id number] [place] [id number] CELSO DUKES MD,PHD Blood BLOOD SPECIMEN / Unknown 01/13/2018 9:17 AM CUSTOMER SUPPORT COORDINATOR 01/13/2018 9:18 AM CUSTOMER SUPPORT COORDINATOR Valente Jett MD LAB - CHEMISTRY JOSS DESAI Performing Organization Address [facility] [place] [address] * CERULOPLASMIN (01/13/2018 9:17 AM CUSTOMER SUPPORT COORDINATOR) Ceruloplasmin 36 18 - 36 mg/dL [facility] Comment: Test Performed at: [facility] [employer] [address] [employer] [facility] [address] AFRICA GUERRERO DO,MPH Blood BLOOD SPECIMEN / Unknown 01/13/2018 9:17 AM CUSTOMER SUPPORT COORDINATOR 01/13/2018 9:18 AM CUSTOMER SUPPORT COORDINATOR Valente Jett MD LAB - CHEMISTRY JOSS DESAI Performing Organization Address [facility] Co de Phone Number [facility] [phone] [place] [address] * [id number] BLOOD (01/13/2018 9:17 AM CUSTOMER SUPPORT COORDINATOR) Lhngm-6-Wpfabjkz sin 193 83 - 199 mg/dL [facility] Comment: Test Performed at: [facility] [employer] [address] [place] [address] AFRICA GUERRERO DO,MPH Blood BLOOD SPECIMEN / Unknown 01/13/2018 9:17 AM CUSTOMER SUPPORT COORDINATOR 01/13/2018 9:18 AM CUSTOMER SUPPORT COORDINATOR Valente Jett MD LAB - CHEMISTRY JOSS DESAI Performing Organization Address [facility] [place] [address] * MAGNESIUM BLOOD (01/13/2018 9:17 AM CUSTOMER SUPPORT COORDINATOR) Pathologist [facility] Magnesium 1.7 1.5 - 2.5 mg/dL [facility] Comment: Test Performed at: [employer] [place] [address] AFRICA GUERRERO DO,MPH Blood BLOOD SPECIMEN / Unknown 01/13/2018 9:17 AM CUSTOMER SUPPORT COORDINATOR 01/13/2018 9:18 AM CUSTOMER SUPPORT COORDINATOR Valente Jett MD LAB - CHEMISTRY JOSS DESAI Performing Organization Address [facility] [place] [address] * (ABNORMAL) HEPATITIS B SURFACE ANTIBODY (01/13/2018 9:17 AM CUSTOMER SUPPORT COORDINATOR) [facility] Hepatitis B Virus Surface Antibody BORDERLINE (A) NON-REACT MARIO [facility] Comment: Test Performed at: [place] [address] AFRICA GUERRERO DO,MPH Blood BLOOD SPECIMEN / Unknown 01/13/2018 9:17 AM CUSTOMER SUPPORT COORDINATOR 01/13/2018 9:18 AM CUSTOMER SUPPORT COORDINATOR Valente Jett MD LAB - CHEMISTRY JOSS DESAI Performing Organization Address [facility] [place] [address] * HEPATITIS B SURFACE ANTIGEN W RFLX CONFIRMATION (01/13/2018 9:17 AM CUSTOMER SUPPORT COORDINATOR) [facility] Hepatitis B Virus Surface Antigen NON-REACT MARIO NON-REACT MARIO [facility] Comment: Test Performed at: [place] [address] AFRICA GUERRERO DO,MPH Confirmation [facility] Comment: Test Performed at: [place], [employer] [address] AFRICA GUERRERO DO,MPH Blood BLOOD SPECIMEN / Unknown 01/13/2018 9:17 AM CUSTOMER SUPPORT COORDINATOR 01/13/2018 9:18 AM CUSTOMER SUPPORT COORDINATOR Valente Jett MD LAB - CHEMISTRY JOSS DESAI Performing Organization Address [facility] Co de Phone Number [facility] [address] [place] [address] * FERRITIN (01/13/2018 9:17 AM CUSTOMER SUPPORT COORDINATOR) Pathologist [facility] Ferritin 156 20 - 380 ng/mL [facility] Comment: Test Performed at: [facility] [address] [place] [address] AFRICA GUERRERO DO,MPH Blood BLOOD SPECIMEN / Unknown 01/13/2018 9:17 AM CUSTOMER SUPPORT COORDINATOR 01/13/2018 9:18 AM CUSTOMER SUPPORT COORDINATOR Valente Jett MD LAB - CHEMISTRY JOSS DESAI Performing Organization Address [facility] Co de Phone Number [facility] [address] [place] [address] * (ABNORMAL) HEPATITIS C AB W/RFLX TO HCV RNA QN PCR (12/29/2017 8:40 AM CDT) [facility] Hepatitis C Antibody REACTIVE( A) NON-REACT MARIO [facility] Signal to Cut-Off 28.60(H) <1.00 [facility] Comment: Following CDC recommendations (MMWR No. 62, 2013), this patient's HCV Antibody Reactive sample will be tested for the presence of HCV RNA by a Nucleic Acid Amplification Test (NAAT) to determine if the patient has an active HCV infection. Test Performed at: [facility] [address] [place] [address] AFRICA GUERRERO DO,MPH Blood BLOOD SPECIMEN / Unknown 12/29/2017 8:40 AM CDT 12/29/2017 8:41 AM CDT Valente Jett MD LAB - CHEMISTRY JOSS DESAI Performing Organization Address [facility] Co de Phone Number [facility] [address] [place] [address] * MITOCHONDRIAL ANTIBODY SCREEN (12/29/2017 8:40 AM CDT) [facility] Mitochondrial M2 Antibody <20.0 U [facility] Comment: Reference Range: NEGATIVE: < OR = 20.0 EQUIVOCAL: 20.1-24.9 POSITIVE: > OR = 25.0 REPORT COMMENT: FASTING:YES Test Performed at: [facility] [address] [place] [address] JOI HERNANDEZ MD,PHD,WENCESLAO Blood BLOOD SPECIMEN / Unknown 12/29/2017 8:40 AM CDT 12/29/2017 8:41 AM CDT Valente Jett MD LAB - CHEMISTRY JOSS DESAI Performing Organization Address [facility] de Phone Number [facility] [address] [place] [address] * ELIZABETH BLOOD SCREEN W/REFLEX TITER (12/29/2017 8:40 AM CDT) Pathologist [facility] ELIZABETH Screen NEGATIVE NEGATIVE [facility] Comment: Although the specimen was negative for anti- nuclear antibodies (ELIZABETH), the presence of cytoplasmic fluorescence was noted on the HEp-2 slide. Other reactivities (e.g., anti- mitochondrial antibodies or anti-smooth muscle antibodies) may be responsible for this fluorescence. ELIZABETH IFA is a first line screen for detecting the presence of up to approximately 150 autoantibodies in various autoimmune diseases. A negative ELIZABETH IFA result suggests ELIZABETH-associated autoimmune diseases are not present at this time. Visit Physician FAQs for interpretation of all antibodies in the [place], prevalence, and association with diseases at http://education.HireVue/ faq/ONK479 Test Performed at: [employer] [facility] [address] AFRICA GUERRERO DO,MPH Blood BLOOD SPECIMEN / Unknown 12/29/2017 8:40 AM CDT 12/29/2017 8:41 AM CDT Valente Jett MD LAB - CHEMISTRY JOSS DESAI Performing Organization Address [facility] Co de Phone Number [facility] [address] [place] [address] * IRON + TIBC PANEL (12/29/2017 8:40 AM CDT) Pathologist [facility] Iron 100 50 - 180 mcg/dL [facility] TIBC 292 250 - 425 mcg/dL (calc) [facility] % Saturation 34 15 - 60 % (calc) [facility] Comment: Test Performed at: [employer] [address] AFRICA GUERRERO DO,MPH Blood BLOOD SPECIMEN / Unknown 12/29/2017 8:40 AM CDT 12/29/2017 8:41 AM CDT Valente Jett MD LAB - CHEMISTRY JOSS DESAI Performing Organization Address [facility] de Phone Number [facility] [phone] [place] [address] * (ABNORMAL) HEPATITIS B CORE ANTIBODY (12/29/2017 8:40 AM CDT) Pathologist [facility] Hepatitis B Core Virus Antibody Total REACTIVE(A ) NON-REACT MARIO [facility] Comment: Test Performed at: [facility] [address] [facility] [address] AFRICA GUERRERO DO,MPH Blood BLOOD SPECIMEN / Unknown 12/29/2017 8:40 AM CDT 12/29/2017 8:41 AM CDT Valente Jett MD LAB - CHEMISTRY JOSS DESAI Performing Organization Address [facility] de Phone Number [facility] [address] [place] [address] * IMMUNOGLOBULINS IGG/IGM/IGA PANEL (12/29/2017 8:40 AM CDT) Pathologist [facility] IgA 185 81 - 463 mg/dL [facility] IgG 1349 694 - 1618 mg/dL [facility] IgM 50 48 - 271 mg/dL [facility] Comment: Test Performed at: [employer] [address] [facility] [place] [place] [address] AFRICA GUERRERO DO,MPH Blood BLOOD SPECIMEN / Unknown 12/29/2017 8:40 AM CDT 12/29/2017 8:41 AM CDT Valente Jett MD LAB - CHEMISTRY JOSS DESAI Performing Organization Address [facility] [place] [address] * HEPATITIS A ANTIBODY (12/29/2017 8:40 AM CDT) Pathologist [facility] Hepatitis A Virus Antibody Total NON-REACTI VE NON-REACT MARIO [facility] Comment: Test Performed at: [facility] [address] [place] [address] AFRICA GUERRERO DO,MPH Blood BLOOD SPECIMEN / Unknown 12/29/2017 8:40 AM CDT 12/29/2017 8:41 AM CDT Valente Jett MD LAB - CHEMISTRY JOSS DESAI [facility] [address] [place] [address] Care Teams Etymology Teacher Relationship Specialty Start Date End Date Leonardo Isidro MD [address] [place] [phone] PCP - General Family Medicine 10/30/17
--- OUTSIDE RECORDS SUMMARY | 2024-04-22 08:38 | XMS_ITS | Clinical Summary ---
Author Organization [facility] Address [address] [place] [address] Phone Care Team Providers Care Oracle Forms Developer Name Role Phone Venessa Isidro MD Primary Care Provider [phone]- [phone] Allergies Active Allergy Reactions Criticality Noted Date Comments Penicillins Other (see Comments) 01/17/2017 unknown Medications chlordiazePOXIDE (LIBRIUM) 25 MG Capsule Take 1 Cap by mouth 3 times daily as needed for Anxiety. 20 Cap 01/17/2017 Active ondansetron (ZOFRAN) 4 MG Tablet Take 1 Tab by mouth every 8 hours as needed for Nausea. 10 Tab 01/17/2017 Active IBUPROFEN PO Take by mouth. Active Social History Tobacco Use Types Packs/Day Years Used Date Smoking Tobacco: Every Day Smokeless Tobacco: Never Alcohol Use Standard Drinks/Week Comments Yes 4 (1 standard drink = 0.6 oz pure alcohol) pt's wide states pt drinks approximately a quarter of a bottle of [place] daily Sex and Gender Information Value Date Recorded Sex Assigned at Not on file Legal Sex Male 11:38 PM CDT Gender Identity Not on file Sexual Orientation Not on file Last Filed Vital Signs Vital Sign Reading Time Taken Comments Blood Pressure 154/79 07/19/2017 8:15 PM CDT Pulse 91 07/19/2017 8:15 PM CDT Temperature 36.6 C (97.9 F) 07/19/2017 5:05 PM CDT Respiratory Rate 18 07/19/2017 5:05 PM CDT Oxygen Saturation 100% 07/19/2017 8:15 PM CDT Inhaled Oxygen Concentration - - Weight 65.8 kg (145 lb) 07/19/2017 5:05 PM CDT Height 167.6 cm (5' 6 ) 07/19/2017 5:05 PM CDT Body Mass Index 23.4 07/19/2017 5:05 PM CDT Plan of Treatment Health Maintenance Due Date Last Done Comments Hepatitis C Virus (HCV) Screening 1960 TdaP Immunization 1960 Colonoscopy 05/29/2003 Colorectal Cancer Screening 05/29/2003 Cologuard 2008 Immunochemical Fecal Occult Blood 2008 Pneumococcal Immunization (5 0+ years) (1 of 1 - PCV) 2008 Zoster Immunization (1 of 2) 2008 PSA Discussion 2013 Influenza Immunization (#1) 2023 SARS-COV-2 Immunization ( season) 2023 01/31/2021, 06/06/2020, 05/16/2020 Respiratory Syncytial Virus (RSV) Immunization (Adult) (1 - 1-dose 75+ series) 2033 Hepatitis B Immunization Aged Out No longer eligible based on patient's age to complete this topic Meningococcal Immunization (ACWY) Aged Out No longer eligible b ased on patient's age to complete this topic Rotavirus Immunization Aged Out No lo nger eligible based on patient's age to complete this topic Care Teams Oracle Forms Developer Relationship Specialty Start Date End Date Venessa Isidro MD PCP - General Family Medicine 01/17/17
--- OUTSIDE RECORDS SUMMARY | 2024-04-22 08:38 | XMS_ITS | Clinical Summary ---
Author Organization [facility] Address [address] [place] [phone] Phone Care Team Providers Care [employer] Name Role Phone Leonardo Isidro MD Primary Care Provider [phone]- [phone] Allergies Active Allergy Reactions Criticality Noted Date Comments Penicillins Unknown 08/10/2017 Medications multivitamin (DAILY-OLAMIDE) tablet Take 1 Tablet by mouth daily. Active folic acid (FOLVITE) 1 mg tablet Take 1 Tablet by mouth daily. 30 Tablet 1 08/13/2017 12:32 PM CDT 08/14/2017 Active potassium chloride (K-TAB) 20 mEq Extended Release tablet Take 1 Tablet by mouth daily with breakfast. 30 Tablet 1 08/13/2017 12:32 PM CDT 08/13/2017 Active thiamine (VITAMIN B-1) 100 mg tablet Take one tablet by mouth daily. 30 Tablet 08/14/2017 Active Active Problems Problem Noted Date Diagnosed Date Alcohol withdrawal syndrome with complication Hepatic cirrhosis Other secondary thrombocytopenia Social History Tobacco Use Types Packs/Day Years Used Date Smoking Tobacco: Every Day Cigarettes Smokeless Tobacco: Never Alcohol Use Standard Drinks/Week Comments Yes 28 (1 standard drink = 0.6 oz pu re alcohol) Sex and Gender Information Value Date Recorded Sex Assigned at Not on file Legal Sex Male 9:58 AM CDT Gender Identity Not on file Sexual Orientation Not on file Last Filed Vital Signs Vital Sign Reading Time Taken Comments Blood Pressure 138/92 08/13/2017 8:58 AM CDT Pulse 94 08/12/2017 6:37 PM CDT Temperature 36.8 C (98.3 F) 08/13/2017 8:58 AM CDT Respiratory Rate 12 08/13/2017 8:58 AM CDT Oxygen Saturation 99% 08/13/2017 8:58 AM CDT Inhaled Oxygen Concentration - - Weight 59 kg (130 lb 1 oz) 08/12/2017 2:47 AM CD T Height 167.6 cm (5' 6 ) 08/10/2017 4:39 PM CDT Body Mass Index 20.99 08/10/2017 4:39 PM CDT Plan of Treatment Health Maintenance Due Date Last Done Comments DTAP/TDAP/TD VACCINES (1 - Tdap) 1977 PNEUMOCOCCAL VACCINE 65+ YEARS (1 of 2 - PCV) 05/28/18 78 COLORECTAL SCREENING 05/29/2003 Colorectal Cancer Screening 05/29/2003 FIT-DNA Q 3 years 05/29/2003 FIT/FOBT Q 1 year 05/29/2003 Flex Sig/CT Colonography Q 5 years 05/29/2003 ZOSTER VACCINE (1 of 2) 2008 RSV VACCINE (60+ or ) (1 - Risk 60-74 years 1-dose series) 2018 INFLUENZA VACCINE (#1) 2023 Insurance RX [employer] RX Member Subscriber Plan / Payer (Ef fective for All Dates) Name:Don Carbajal Relation to Subscriber:Self Name:Don Carbajal Payer ID:Not on file Type:RX LDI Address: [place] [address] Advance Directives For more information, please contact: [phone] * Full Code (Latest Code Status on File) Date Activated Date Inactivated Comments 08/10/2017 3:08 PM 08/13/2017 2:34 PM Care Teams [employer] Relationship Specialty Start Date End Date Leonardo Isidro MD PCP - General Family Practice 08/10/17
--- OUTSIDE RECORDS SUMMARY | 2024-04-22 08:38 | XMS_ITS | Clinical Summary ---
Author Organization [facility] [email or web address] Address [address] [facility] [place] [address] Care Team Providers Care Flap Curer Name Role Phone Leonardo Isidro MD Primary Care Provider [phone]- [phone] Source Comments [facility] [email or web address],non-owned Affiliates and Associated Physician Practices is amultiple site organization consisting of ambulatory clinics and hospital sitesin [place], [place], [place] and [place]. This disclosure is being madepursuant to the Care Everywhere program and may not contain all information available regarding this patient. Last updated 17.[facility] [email or web address] Allergies Active Allergy Reactions Criticality Noted Date Comments Penicillins Unknown 08/10/2017 Medications * Be aware that medications may not be up to date on this document. Alwaysverify current medications with the patient. Medication Sig Dispensed Refills Start Date End Date Status Multiple Vitamins-Minerals (CENTRUM SILVER 50+MEN) TABS qd 03/13/2017 Active esomeprazole (NEXIUM) 40 MG capsule Take 40 mg by mouth daily before breakfast Active gabapentin (NEURONTIN) 300 MG capsule Take 300 mg by mouth 2 times daily 11/28/2019 Active SYMBICORT 160-4.5 MCG/ACT inhaler INHALE 2 PUFFS BY MOUTH EVERY 12 HOURS 02/04/2021 Active Cyanocobalamin (VITAMIN B 12 PO) Take by mouth once daily Active vitamin D3 (Cholecalciferol) 25 MCG (1000 UNITS) tablet Take by mouth once daily Active ascorbic acid (Vitamin C) 250 MG chewable tablet Take by mouth once daily Active furosemide (Lasix) 40 MG tablet TAKE 1 TABLET BY MOUTH ONCE DAILY 90 tablet 3 06/06/2022 Active sildenafil (Viagra) 100 MG tablet TAKE 1 TABLET BY MOUTH 30 MINUTES TO 4 HOURS BEFORE ACTIVITY 08/21/2022 Active spironolactone (Aldactone) 100 MG tablet TAKE 1 TABLET BY MOUTH ONCE DAILY 100 tablet 2 02/13/2023 Active Active Problems Problem Noted Date Diagnosed Date 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 Alcoholic cirrhosis of liver 11/18/2017 Arthritis 11/18/2017 Asthma 11/18/2017 Depression 11/18/2017 Immunizations Name Administration Dates Next Due HEP A/HEP B 01/19/2018 Social History Tobacco Use Types Packs/Day Years [...] Comments Blood Pressure 126/77 02/11/2023 8:40 AM WIRE FENCE ERECTOR Pulse 64 02/11/2023 8:40 AM WIRE FENCE ERECTOR Temperature 36.2 C (97.2 F) 02/11/2023 8:40 AM WIRE FENCE ERECTOR Respiratory Rate 18 02/11/2023 8:40 AM WIRE FENCE ERECTOR Oxygen Saturation 99% 02/11/2023 8:40 AM WIRE FENCE ERECTOR Inhaled Oxygen Concentration - - Weight 77.3 kg (170 lb 6.4 oz) 02/11/2023 8:40 A M WIRE FENCE ERECTOR Height 167.6 cm (5' 6 ) 02/11/2023 8:40 AM WIRE FENCE ERECTOR Body Mass Index 27.5 02/11/2023 8:40 AM WIRE FENCE ERECTOR Plan of Treatment Health Maintenance Due Date Last Done Comments COLOGUARD (AGES 45-75) - COLON CA SCREENING 1960 CT COLONOGRAPHY - COLON CA SCREENING 1960 FIT - COLON CA SCREENING 1960 FLEX SIG - COLON CA SCREENING 1960 LIPID TESTING 1958 DTAP/TDAP/TD VACCINES (1 - Tdap) 1977 PNEUMOCOCCAL VACCINE 50+ (1 of 2 - PCV) 1977 ZOSTER VACCINE (1 of 2) 2008 HEPATITIS B VACCINE (2 of 3 - Hep B Twinrix risk 3-dose series) 02/16/2018 01/19/2018 Respiratory Syncytial Virus (RSV) Vaccine Pt: or over 60 yrs (1 - Risk 60-74 years 1-dose series) 2018 HEPATITIS A VACCINE (2 of 2 - Risk 2-dose series) 07/19/2018 01/19/2018 AAA SCREENING 05/29/2023 COVID-19 VACCINE (1 - season) 2023 INFLUENZA VACCINE (#1) 2023 DEPRESSION SCREENING 03/03/2024 MEDICARE AWV CALENDAR YEAR 2024 SCREENING FOR DIABETES 09/08/2026 , 01/03/2023, 02/12/2022, Additional history exists COLON MONITORING 04/28/2030 04/28/2020, 04/28/2020 COLONOSCOPY - COLON CA SCREENING 04/28/2030 04/28/2020, 04/28/2020 Colorectal Cancer Screening 04/28/2030 HIV SCREENING Completed 01/13/2018 HEPATITIS C SCREENING Completed 08/21/2023 , 08/21/2023, 02/11/2023, Additional history exists HIB VACCINE Aged Out No longer eligi ble based on patient's age to complete this topic HPV VACCINE Aged Out No longer eligi ble based on patient's age to complete this topic MENINGOCOCCAL (Group B) VACCINE Aged Out No longer eligible based on patient's age to complete this topic MENINGOCOCCAL VACCINE Aged Out No ember april eligible based on patient's age to complete this topic Goals Goal Patient Goal Type Associated Problems Recent Progress Patient-Stated? Author Medication Management General On track( 022 9:03 AM WIRE FENCE ERECTOR) No Diana Lowry, HAYLEY Note: Expected end date: Ongoing Interventions: Take all medications as prescribed Make sure to request a refill of your medication at least one week prior to your last dose Procedures Procedure Name Priority Date/Time Associated Diagnosis Comments COMPREHENSIVE METABOLIC PANEL Routine 09/09/2023 8:47 AM CDT Alcoholic cirrhosis, unspecified whether ascites present (HCC) Compensated HCV cirrhosis (HCC) HEPATITIS C RNA QUANTITATIVE Routine 02/13/2021 9:33 AM WIRE FENCE ERECTOR Compensated HCV cirrhosis (HCC) ENDOSCOPY, COLON, SCREENING Routine 04/28/2020 12:08 PM WIRE FENCE ERECTOR HIV-1 HIV-2 ANTIGEN/ANTIBODY W RFLX Routine 01/13/2018 9:17 AM WIRE FENCE ERECTOR Chronic hepatitis C without hepatic coma (HCC) Hepatic cirrhosis, unspecified hepatic cirrhosis type, unspecified whether ascites present (HCC) from Last 3 Months or Most Recently Relevant to Health Maintenance Results * COMPREHENSIVE METABOLIC PANEL (09/09/2023 8:47 AM CDT) [facility] Glucose 86 65 - 99 mg/dL [facility] [...] 46 U/L [facility] Comment: Test Performed at: [facility] [address] [place] [address] GERARD DUDLEY MD Blood BLOOD SPECIMEN / Unknown 09/09/2023 8:47 AM CDT 09/09/2023 8:48 AM CDT Valente Jett MD LAB - CHEMISTRY JOSS DESAI [facility] [email or web address] [address] [place] [address] * HEPATITIS C RNA QUANTITATIVE (02/13/2021 9:33 AM WIRE FENCE ERECTOR) Hepatitis C RNA PCR, Interp Not detected Not detected 02/15/2021 12:49 PM WIRE FENCE ERECTOR [facility] Blood BLOOD SPECIMEN / Unknown Lab Venipuncture / Unknown 02/13/2021 9:33 AM WIRE FENCE ERECTOR 02/13/2021 10:23 AM WIRE FENCE ERECTOR Narrative [facility] - 02/15/2021 12:49 PM WIRE FENCE ERECTOR The Hepatitis C viral (HCV) RNA analysis utilized a serum sample, real-time reverse rail switchman PCR, and is reported as Not Detected, [...] the isolation of HCV RNA with reverse rail switchman of genomic HCV RNA followed by real-time PCR in the presence of an unrelated RNA internal control. The internal control ensures that RNA is isolated, and that no general significant inhibitors of the RT-PCR process are present. The analysis was performed using a U.S. FDA approved test methodology ([employer] Real Time HCV). Valente Jett MD LAB - CHEMISTRY JOSS DESAI [facility] [address] [place] [address], [facility] [phone] * ENDOSCOPY, COLON, SCREENING (04/28/2020 12:08 PM WIRE FENCE ERECTOR) Report Endoscopy POC Endoscopy Department Report _ [...] entire procedure. Procedure Code(s): --- Professional --- 31912, Esophagogastroduod enoscopy, flexible, transoral; diagnostic, including collection of specimen(s) by brushing or washing, when performed (separate procedure) Diagnosis Code(s): --- Professional --- K31.89, Other diseases of stomach and duodenum I85.00, Esophageal varices without bleeding CPT copyright 2019 [employer]. All rights reserved. The codes documented in this report are preliminary and upon certified medical coder review may be revised to meet current compliance requirements. Valente Jett, 04/28/2020 1:42:20 PM Note Initiated On: 04/28/2020 12:08 PM Number of Addenda: [id number] [place] [address] 04/28/2020 12:0 8 PM WIRE FENCE ERECTOR Valente Jett MD GI PROCEDURE ORDERAB LES [facility] * HIV-1 HIV-2 ANTIGEN/ANTIBODY W RFLX (01/13/2018 9:17 AM WIRE FENCE ERECTOR) HIV Screen 4th Generation w Reflex NON-REACT MARIO NON-REACT MARIO [facility] Comment: HIV-1 antigen and HIV-1/HIV-2 antibodies were [...] purpose. For additional information please refer to http://education.[employer].Mir Tesen/faq/IKC966 (This link is being provided for informational/ educational purposes only.) The performance of this assay has not been clinically validated in patients less than 2 years old. Test Performed at: [email or web address] [address] [address] AFRICA GUERRERO DO,MPH Blood BLOOD SPECIMEN / Unknown 01/13/2018 9:17 AM WIRE FENCE ERECTOR 01/13/2018 9:18 AM WIRE FENCE ERECTOR Valente Jett MD LAB - SEROLOGY ORDER MARGOTH [facility] [address] [place] [address] from Last 3 Months or Most Recently Relevant to Health Maintenance Care Teams Flap Curer Relationship Specialty Start Date End Date Leonardo Isidro MD [address] [place] [phone] PCP - General Family Medicine 10/30/17
--- OUTSIDE RECORDS SUMMARY | 2024-04-22 08:38 | XMS_ITS | Referral Summary ---
Author Organization [facility] Address [address] [place] [address] Care Team Providers Care Sustainability Coordinator Name Role Phone Leonardo Isidro MD Primary Care Provider +1- [phone] Source Comments [facility],non-owned Affiliates and Associated Physician Practices is amultiple site organization consisting of ambulatory clinics and hospital sitesin [place], [place], [place] and [place]. This disclosure is being madepursuant to the Care Everywhere program and may not contain all information available regarding this patient. Last updated 17.[facility] Allergies Active Allergy Reactions Criticality Noted Date [...] Comments Blood Pressure 126/77 02/11/2023 8:40 AM COST ESTIMATING ENGINEER Pulse 64 02/11/2023 8:40 AM COST ESTIMATING ENGINEER Temperature 36.2 C (97.2 F) 02/11/2023 8:40 AM COST ESTIMATING ENGINEER Respiratory Rate 18 02/11/2023 8:40 AM COST ESTIMATING ENGINEER Oxygen Saturation 99% 02/11/2023 8:40 AM COST ESTIMATING ENGINEER Inhaled Oxygen Concentration - - Weight 77.3 kg (170 lb 6.4 oz) 02/11/2023 8:40 A M COST ESTIMATING ENGINEER Height 167.6 cm (5' 6 ) 02/11/2023 8:40 AM COST ESTIMATING ENGINEER Body Mass Index 27.5 02/11/2023 8:40 AM COST ESTIMATING ENGINEER Plan of Treatment Not on file Goals Goal Patient Goal Type Associated Problems Recent Progress Patient-Stated? Author Medication Management General On track( 022 9:03 AM COST ESTIMATING ENGINEER) No Diana Lowry, RN Note: Expected end date: Ongoing Interventions: Take [...] C RNA QUANTITATIVE Routine 02/13/2021 9:33 AM COST ESTIMATING ENGINEER Compensated HCV cirrhosis (HCC) ENDOSCOPY, COLON, SCREENING Routine 04/28/2020 12:08 PM COST ESTIMATING ENGINEER HIV-1 HIV-2 ANTIGEN/ANTIBODY W RFLX Routine 01/13/2018 9:17 AM COST ESTIMATING ENGINEER Chronic hepatitis C without hepatic coma (HCC) Hepatic cirrhosis, unspecified hepatic cirrhosis type, unspecified whether ascites present (HCC) from Last 3 Months or Most Recently Relevant to Health Maintenance Results * COMPREHENSIVE METABOLIC PANEL (09/09/2023 8:47 AM CDT) [facility] Glucose 86 65 - 99 mg/dL [facility] [...] 46 U/L [facility] Comment: Test Performed at: [facility] [place] [address] [place] [address] GERARD DUDLEY MD Blood BLOOD SPECIMEN / Unknown 09/09/2023 8:47 AM CDT 09/09/2023 8:48 AM CDT Valente Jett MD LAB - CHEMISTRY JOSS DESAI [facility] [address] [place] [address] * HEPATITIS C RNA QUANTITATIVE (02/13/2021 9:33 AM COST ESTIMATING ENGINEER) [facility] Hepatitis C RNA PCR, Interp Not detected Not detected 02/15/2021 12:49 PM COST ESTIMATING ENGINEER [facility] Blood BLOOD SPECIMEN / Unknown Lab Venipuncture / Unknown 02/13/2021 9:33 AM COST ESTIMATING ENGINEER 02/13/2021 10:23 AM COST ESTIMATING ENGINEER Narrative [facility] - 02/15/2021 12:49 PM COST ESTIMATING ENGINEER The Hepatitis C viral (HCV) RNA analysis utilized a serum sample, real-time reverse lead etl developer PCR, and is reported as Not Detected, [...] the isolation of HCV RNA with reverse lead etl developer of genomic HCV RNA followed by real-time PCR in the presence of an unrelated RNA internal control. The internal control ensures that RNA is isolated, and that no general significant inhibitors of the RT-PCR process are present. The analysis was performed using a U.S. FDA approved test methodology ([employer] Real Time HCV). Valente Jett MD LAB - CHEMISTRY JOSS DESAI [facility] [address] [place] [address], [facility] [phone] * ENDOSCOPY, COLON, SCREENING (04/28/2020 12:08 PM COST ESTIMATING ENGINEER) Report Endoscopy POC Endoscopy Department Report _ [...] entire procedure. Procedure Code(s): --- Professional --- 11598, Esophagogastroduod enoscopy, flexible, transoral; diagnostic, including collection of specimen(s) by brushing or washing, when performed (separate procedure) Diagnosis Code(s): --- Professional --- K31.89, Other diseases of stomach and duodenum I85.00, Esophageal varices without bleeding CPT copyright 2019 [place]. All rights reserved. The codes documented in this report are preliminary and upon chemic mangler review may be revised to meet current compliance requirements. Valente Jett, 04/28/2020 1:42:20 PM Note Initiated On: 04/28/2020 12:08 PM Number of Addenda: [id number] [place] [address] 04/28/2020 12:0 8 PM COST ESTIMATING ENGINEER Valente Jett MD GI PROCEDURE ORDERAB LES Performing Organization Address City/State/[facility] Co de Phone Number [facility] * HIV-1 HIV-2 ANTIGEN/ANTIBODY W RFLX (01/13/2018 9:17 AM COST ESTIMATING ENGINEER) HIV Screen 4th Generation w Reflex NON-REACT [...] purpose. For additional information please refer to http://education.MuckRock.Lontra/faq/WAA452 (This link is being provided for informational/ educational purposes only.) The performance of this assay has not been clinically validated in patients less than 2 years old. Test Performed at: [facility] [address] [place] [address] AFRICA GUERRERO DO,MPH Blood BLOOD SPECIMEN / Unknown 01/13/2018 9:17 AM COST ESTIMATING ENGINEER 01/13/2018 9:18 AM COST ESTIMATING ENGINEER Valente Jett MD LAB - SEROLOGY ORDER MARGOTH [facility] [address] [place] [address] from Last 3 Months or Most Recently Relevant to Health Maintenance Care Teams Sustainability Coordinator Relationship Specialty Start Date End Date Leonardo Isidro MD [facility] [place] [phone] PCP - General Family Medicine 10/30/17
[2024-04-22 20:19] LABS: Basophils Absolute Auto 0.1 K/mm3 (0.0-0.1); Basophils Percent Auto 1.1 % (0.2-1.2); Eosinophils Absolute Auto 0.1 K/mm3 (0-0.3); Eosinophils Percent Auto 2.1 % (0-4.4); Hematocrit 46.7 % (42.0-52.0); Hemoglobin 15.4 g/dL (14.0-18.0); Immature Granulocyte Absolute 0.02 K/mm3 (0.00-0.031); Immature Granulocyte Percent A 0.3 % (0-0.5); Lymphocytes Absolute Auto 0.98 K/mm3 (0.9-3.2); Lymphocytes Percent Auto 15.5 % (18.3-44.2); Mean Corpuscular Volume 96.9 fl (80-100); Monocytes Absolute Auto 0.5 K/mm3 (0.1-0.6); Monocytes Percent Auto 8.1 % (2.6-8.5); Neutrophils Absolute Auto 4.6 K/mm3 (1.3-6.7); Neutrophils Percent Auto 72.9 % (45.5-73.1); Platelet Count Result 188 k/mm3 (150-375); Red Blood Count 4.82 M/mm3 (4.6-6.20); Red Cell Distribution Width 12.4 % (11.5-14.5); White Blood Count 6.3 K/mm3 (4.5-10.0)
[2024-04-22 20:21] LABS: Prothrombin Time 13.7 Seconds (11.1-14.7)
[2024-04-22 20:24] LABS: Alanine Aminotransferase 27 U/L (6-50); Albumin Level 4.5 g/dL (3.5-5.1); Alkaline Phosphatase 88 U/L (38-126); Anion Gap 8 mmol/L (4-12); Aspartate Amino Transferase 35 U/L (17-59); Bilirubin,Total 1.3 mg/dL (0.2-1.3); Blood Urea Nitrogen 16 mg/dL (9-20); Calcium 9.4 mg/dL (8.4-10.2); Carbon Dioxide 31 mmol/L (22-30); Chloride 101 mmol/L (98-107); Cholesterol 224 mg/dL (0-200); Estimated Glomerular Filt Rate > 60; Glucose 91 mg/dL (65-110); HDL Direct 46 mg/dL; Potassium 4.2 mmol/L (3.4-5.0); Sodium 140 mmol/L (137-145); Triglycerides 95 mg/dL (<150)
[2024-04-22 20:35] LABS: LDL Cholesterol Direct 171 mg/dL
== END 2024-04-22 08:34 | disposition home or self-care (01) ==
LOC: ANHGOSHLAB 08:35
PROVIDERS: PCP Nurse Practitioner Family; Visit Provider Nurse Practitioner Family
DX: K70.31 Alcoholic cirrhosis of liver with ascites (principal); G25.81 Restless legs syndrome; E61.1 Iron deficiency; E78.5 Hyperlipidemia, unspecified
CPT/HCPCS: 36415; 80053; 80061; 82105; 85025; 85610

== ENCOUNTER 2024-07-12 08:00 | Outpatient (CLI) | payer MEDICARE, SELFPAY ==
--- NOTE | ~2024-07-12 | US_ITS ---
COMPLETE ABDOMINAL ULTRASOUND Ordering provider: Leonardo Isidro MD History: . K74.60 - Unspecified cirrhosis of liver . Comparison: None. FINDINGS: LIVER: Liver cirrhosis is noted. No focal hepatic lesions or perihepatic fluid collections are identi fied. GALLBLADDER: Stone is seen which measures 0.5 cm. No evidence for sludge, gallbladder wall thickening or pericholecystic fluid collections. A negative sonographic Ruiz's sign was noted. BILIARY DUCTS: No evidence for intra or extrahepatic biliary dilation. Common bile duct measures 3 mm in diameter which is within normal limits. PANCREAS: Normal echotexture and size of the visualized portion. SPLEEN: Normal size, echotexture and contour and measures 11.8 cm in length. KIDNEYS: Right measures 9.6x 4.3x 5.1 cm in length and the left 10.8x 4.3x 6.1 cm in length. There is no evidence for hydronephrosis, solid renal mass, renal calculi or perinephric fluid collections. Si mple Cyst is seen in the left kidney measuring 2.1 x 1.7 x 2.2 cm. UPPER ABDOMINAL AORTA: Normal in caliber. The aorta measures 1.7 cm proximal. 2.3 cm in the midportio n. IVC: Patent. FREE FLUID: None. IMPRESSION: Liver cirrhosis. Cholelithiasis. Left kidney simple cyst. Reviewed, dictated and finalized at location A.
== END 2024-07-12 08:01 | disposition home or self-care (01) ==
LOC: GOSHIMG 08:01
PROVIDERS: PCP Family Medicine; Visit Provider Family Medicine
DX: K74.60 Unspecified cirrhosis of liver (principal); K80.20 Calculus of gallbladder without cholecystitis without obstruction; N28.1 Cyst of kidney, acquired
CPT/HCPCS: 76700

== ENCOUNTER 2024-07-12 08:34 | Outpatient (CLI) | payer MEDICARE, SELFPAY ==
--- OUTSIDE RECORDS SUMMARY | 2024-07-12 09:08 | XMS_ITS | Clinical Summary ---
Author Organization [facility] Address [address] [place] [address] Care Team Providers Care Watershed Manager Name Role Phone Leonardo Isidro MD Primary Care Provider +1- [phone] Source Comments [facility],non-owned Affiliates and Associated Physician Practices is amultiple site organization consisting of ambulatory clinics and hospital sitesin [place], [place], [place] and [place]. This disclosure is being madepursuant to the Care Everywhere program and may not contain all information available regarding this patient. Last updated 17.[facility] Allergies Active Allergy Reactions Criticality Noted Date Comments Penicillins Unknown 08/10/2017 Medications * Be aware that medications may not be up to date on this document. Alwaysverify current medications with the patient. Multiple Vitamins-Minera ls (CENTRUM SILVER 50+MEN) TABS qd 8 Active esomeprazole (NEXIUM) 40 MG capsule Take 40 mg by mouth daily before breakfast Active gabapentin (NEURONTIN) 300 MG capsule Take 300 mg by mouth 2 times daily 0 Active SYMBICORT 160-4.5 MCG/ACT inhaler INHALE 2 PUFFS BY MOUTH EVERY 12 HOURS 1 Active Cyanocobalamin (VITAMIN B 12 PO) Take by mouth once daily Active vitamin D3 (Cholecalcifero l) 25 MCG (1000 UNITS) tablet Take by mouth once daily Active ascorbic acid (Vitamin C) 250 MG chewable tablet Take by mouth once daily Active furosemide (Lasix) 40 MG tablet TAKE 1 TABLET BY MOUTH ONCE DAILY 90 tablet 3 3 Active sildenafil (Viagra) 100 MG tablet TAKE 1 TABLET BY MOUTH 30 MINUTES TO 4 HOURS BEFORE ACTIVITY 3 Active spironolactone (Aldactone) 100 MG tablet TAKE 1 TABLET BY MOUTH ONCE DAILY 100 tablet 2 3 Active Active Problems Problem Noted Date Diagnosed Date 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 Alcoholic cirrhosis of liver 11/18/2017 Arthritis 11/18/2017 Asthma 11/18/2017 Depression 11/18/2017 Immunizations Immunization Administration Dates Next Due HEP A/HEP B [...] at Not on file Legal Sex Male 9:01 AM SHIPWRIGHT HELPER Gender Identity Not on file Sexual Orientation Not on file Last Filed Vital Signs Vital Sign Reading Time Taken Comments Blood Pressure 126/77 02/11/2023 8:40 AM SHIPWRIGHT HELPER Pulse 64 02/11/2023 8:40 AM SHIPWRIGHT HELPER Temperature 36.2 C (97.2 F) 02/11/2023 8:40 AM SHIPWRIGHT HELPER Respiratory Rate 18 02/11/2023 8:40 AM SHIPWRIGHT HELPER Oxygen Saturation 99% 02/11/2023 8:40 AM SHIPWRIGHT HELPER Inhaled Oxygen Concentration - - Weight 77.3 kg (170 lb 6.4 oz) 02/11/2023 8:40 A M SHIPWRIGHT HELPER Height 167.6 cm (5' 6 ) 02/11/2023 8:40 AM SHIPWRIGHT HELPER Body Mass Index 27.5 02/11/2023 8:40 AM SHIPWRIGHT HELPER Plan of Treatment Health Maintenance Due Date [...] 07/19/2018 01/19/2018 AAA SCREENING 05/29/2023 COVID-19 VACCINE ( - season) 2023 DEPRESSION SCREENING 03/03/2024 MEDICARE AWV CALENDAR YEAR 2024 INFLUENZA VACCINE (Season Ended) 2024 SCREENING FOR DIABETES 09/08/2026 , 01/03/2023, 02/12/2022, Additional history exists COLON MONITORING 04/28/2030 04/28/2020, 04/28/2020 COLONOSCOPY - COLON CA SCREENING 04/28/2030 04/28/2020, 04/28/2020 Colorectal Cancer Screening 04/28/2030 HEPATITIS C SCREENING Completed 08/21/2023 , 08/21/2023, 02/11/2023, Additional history exists HIB VACCINE Aged Out No longer eligi ble based on patient's age to complete this topic HPV VACCINE Aged Out No longer eligi ble based on patient's age to complete this topic MENINGOCOCCAL (Group B) VACCINE SHARED DECISION-MAKING Aged Out No longer eligible based on patient's age to complete this topic MENINGOCOCCAL GROUPS A/C/Y/W VACCINE Aged Out No longer eligible based on patient's age to complete this topic Goals Goal Patient Goal Type Associated Problems Recent Progress Patient-Stated? Author Medication Management General On track( 022 9:03 AM SHIPWRIGHT HELPER) Diana Soler, RN Note: Expected end date: Ongoing Interventions: Take all medications as prescribed Make sure to request a refill of your medication at least one week prior to your last dose Procedures Procedure Name Priority Date/Time Associated Diagnosis Comments COMPREHENSIVE METABOLIC PANEL Routine 09/09/2023 8:47 AM CDT Alcoholic cirrhosis, unspecified whether ascites present Compensated HCV cirrhosis HEPATITIS C RNA QUANTITATIVE Routine 02/13/2021 9:33 AM SHIPWRIGHT HELPER Compensated HCV cirrhosis ENDOSCOPY, COLON, SCREENING Routine 04/28/2020 12:08 PM SHIPWRIGHT HELPER from Last 3 Months or Most Recently Relevant to Health Maintenance Results * COMPREHENSIVE METABOLIC PANEL (09/09/2023 8:47 AM CDT) Glucose 86 65 - 99 mg/dL [facility] [...] 46 U/L [facility] Comment: Test Performed at: [facility] [address] [place] [address] GERARD DUDLEY MD Blood BLOOD SPECIMEN / Unknown 09/09/2023 8:47 AM CDT 09/09/2023 8:48 AM CDT us Valente Jett MD LAB - CHEMISTRY ORDERABLES Fin al Result [facility] [address] [place] [address] * HEPATITIS C RNA QUANTITATIVE (02/13/2021 9:33 AM SHIPWRIGHT HELPER) Pathologist [facility] Hepatitis C RNA PCR, Interp Not detected Not detected 02/15/2021 12:49 PM SHIPWRIGHT HELPER [facility] Blood BLOOD SPECIMEN / Unknown Lab Venipuncture / Unknown 02/13/2021 9:33 AM SHIPWRIGHT HELPER 02/13/2021 10:23 AM SHIPWRIGHT HELPER Narrative [facility] - 02/15/2021 12:49 PM SHIPWRIGHT HELPER The Hepatitis C viral (HCV) RNA analysis utilized a serum sample, real-time reverse quality review specialist PCR, and is reported as Not Detected, [...] the isolation of HCV RNA with reverse quality review specialist of genomic HCV RNA followed by real-time PCR in the presence of an unrelated RNA internal control. The internal control ensures that RNA is isolated, and that no general significant inhibitors of the RT-PCR process are present. The analysis was performed using a U.S. FDA approved test methodology ([employer] Real Time HCV). Valente Jett MD LAB - CHEMISTRY ORDERABLES Fin al Result Performing Organization Address City/[facility] Co de Phone Number [facility] [address] [place] [address], [facility] [phone] * ENDOSCOPY, COLON, SCREENING (04/28/2020 12:08 PM SHIPWRIGHT HELPER) Report Endoscopy POC Endoscopy Department Report _ Patient Name: Don Gutiérrez Procedure Date: 04/28/2020 12:08 PM Date of [...] entire procedure. Procedure Code(s): --- Professional --- 37620, Esophagogastroduod enoscopy, flexible, transoral; diagnostic, including collection of specimen(s) by brushing or washing, when performed (separate procedure) Diagnosis Code(s): --- Professional --- K31.89, Other diseases of stomach and duodenum I85.00, Esophageal varices without bleeding CPT copyright 2019 [employer]. All rights reserved. The codes documented in this report are preliminary and upon certified medical coder review may be revised to meet current compliance requirements. Valente Jett, 04/28/2020 1:42:20 PM Note Initiated On: 04/28/2020 12:08 PM Number of Addenda: [address] [address] [facility] 04/28/2020 12:0 8 PM SHIPWRIGHT HELPER Valente Jett MD GI PROCEDURE ORDERABLES Edited Result - Final [facility] from Last 3 Months or Most Recently Relevant to Health Maintenance Insurance [facility] MANAGED MEDICARE ADV [facility] MANAGED MEDICARE ADV Care Teams Watershed Manager Relationship Specialty Start Date End Date Leonardo Isidro MD [address] [place] [phone] PCP - General Family Medicine 10/30/17
--- OUTSIDE RECORDS SUMMARY | 2024-07-12 09:08 | XMS_ITS | Clinical Summary ---
Author Organization [facility] Address [address] [place] [id number] Phone Care Team Providers Care Vp Analysis Name Role Phone Leonardo Isidro MD Primary Care Provider +1- [phone] Allergies Active Allergy Reactions Criticality Noted Date [...] (1 - Tdap) 1977 PNEUMOCOCCAL VACCINE 50+ YEARS (1 of 2 - PCV) 05/28/18 [...] Advance Directives For more information, please contact: [phone] * Full Code (Latest Code Status on File) Date Activated Date Inactivated Comments 08/10/2017 3:08 PM 08/13/2017 2:34 PM Care Teams Vp Analysis Relationship Specialty Start Date End Date Leonardo Isidro MD PCP - General Family Practice 08/10/17
--- OUTSIDE RECORDS SUMMARY | 2024-07-12 09:08 | XMS_ITS | Clinical Summary ---
Author Organization [facility] Address [address] [place] [address] Phone Care Team Providers Care Box Storage Worker Name Role Phone Venessa Isidro MD Primary Care Provider +1- [phone] Allergies Active Allergy Reactions Criticality Noted Date [...] 2008 Zoster Immunization (1 of 2) 2008 Influenza Immunization (#1) 2023 SARS-COV-2 Immunization ( [...] age to complete this topic Care Teams Box Storage Worker Relationship Specialty Start Date End Date Venessa Isidro MD PCP - General Family Medicine 01/17/17
--- OUTSIDE RECORDS SUMMARY | 2024-07-12 09:08 | XMS_ITS | Clinical Summary ---
Author Organization [facility] Address [address] [place] [id number] Care Team Providers Care Hydrology Teacher Name Role Phone Unavailable Primary Care Provider [...] Td Vaccines ( 1 - Tdap) 1977 Pneumococcal Vaccine: 50+ Ye ars (1 of 1 - PCV) 2008 Zoster Vaccines (1 of 2) 2008 COVID-19 Vaccine ( - 2023-2 5 season) 2023 RSV Immunization or 60+ Years (1 [...]
[2024-07-12 13:53] LABS: Basophils Absolute Auto 0.1 K/mm3 (0.0-0.1); Eosinophils Absolute Auto 0.1 K/mm3 (0-0.3); Hematocrit 47.5 % (42.0-52.0); Hemoglobin 15.8 g/dL (14.0-18.0); Immature Granulocyte Absolute 0.04 K/mm3 (0.00-0.031); Immature Granulocyte Percent A 0.5 % (0-0.5); Lymphocytes Absolute Auto 0.99 K/mm3 (0.9-3.2); Lymphocytes Percent Auto 12.9 % (18.3-44.2); Mean Corpuscular HGB Conc 33.3 g/dl (32-36); Mean Corpuscular Hemoglobin 32.6 pg (26-34); Mean Corpuscular Volume 97.9 fl (80-100); Mean Platelet Volume 10.8 fl (7.4-10.4); Monocytes Absolute Auto 0.7 K/mm3 (0.1-0.6); Monocytes Percent Auto 8.5 % (2.6-8.5); Neutrophils Absolute Auto 5.8 K/mm3 (1.3-6.7); Neutrophils Percent Auto 76.1 % (45.5-73.1); Platelet Count Result 181 k/mm3 (150-375); Red Blood Count 4.85 M/mm3 (4.6-6.20); Red Cell Distribution Width 12.9 % (11.5-14.5); White Blood Count 7.7 K/mm3 (4.5-10.0)
[2024-07-12 14:06] LABS: Alanine Aminotransferase 27 U/L (6-50); Albumin Level 4.6 g/dL (3.5-5.1); Alkaline Phosphatase 98 U/L (38-126); Anion Gap 10 mmol/L (4-12); Aspartate Amino Transferase 42 U/L (17-59); Bilirubin,Total 1.4 mg/dL (0.2-1.3); Blood Urea Nitrogen 14 mg/dL (9-20); Calcium 9.4 mg/dL (8.4-10.2); Carbon Dioxide 28 mmol/L (22-30); Chloride 103 mmol/L (98-107); Cholesterol 252 mg/dL (0-200); Estimated Glomerular Filt Rate > 60; Glucose 84 mg/dL (65-110); HDL Direct 54 mg/dL; Potassium 3.7 mmol/L (3.4-5.0); Sodium 141 mmol/L (137-145); Triglycerides 128 mg/dL (<150)
[2024-07-12 14:17] LABS: LDL Cholesterol Direct 157 mg/dL
[2024-07-15 13:48] LABS: Alpha Fetoprotein Tumor Marker 3.1 ng/mL (<6.1)
== END 2024-07-12 08:35 | disposition home or self-care (01) ==
PROVIDERS: PCP Family Medicine; Visit Provider Family Medicine
DX: E78.5 Hyperlipidemia, unspecified (principal); K70.31 Alcoholic cirrhosis of liver with ascites; G25.81 Restless legs syndrome; E61.1 Iron deficiency
CPT/HCPCS: 36415; 80053; 80061; 82105; 85025

== ENCOUNTER 2024-12-14 11:26 | Emergency (ER) | payer MEDICARE, SELFPAY ==
--- NOTE | 2024-12-14 11:26 | ED.BACK ---
HPI - Back Pain/Injury General Chief Complaint: Fall Stated Complaint: BACK INJURY Time Seen by Provider: 12/14/24 11:26 Source: patient Mode of arrival: ambulatory Limitations: no limitations History of Present Illness HPI Narrative: Don is a 64-year-old male patient presenting to the clinic today with complaints of left lower back pain/injury. He reports he fell approximately 8 ft off of a ladder when he was trimming a tree limb just prior to arrival. States he fell onto the ground and his . Landed on his left side. Denies hitting his head or any loss of consciousness. Denies any neck pain. Has some bruising/swelling to the left lower back/left posterior rib/left flank area. States that it knocked the wind out of him. Denies any chest pain or shortness of breath at this time. He has not urinated since he fell. Rates his pain 10/10 with movement and 6/10 at rest. Has not taken any medications for his pain. Related Data Allergies Allergy/AdvReac Type Severity Reaction Status Date / Time Penicillins Allergy Unknown Unknown Verified 12/14/24 11:38 duloxetine (From Cymbalta) AdvReac Confusion Verified 12/14/24 11:38 Review of Systems Review of Systems: Pertinent positives per HPI. Patient denies any fever, chills, rash, headache, visual changes, dizziness, cough, shortness of breath, chest pain, palpitations, nausea, vomiting, diarrhea, constipation, abdominal pain, or any urinary issues. [facility] Past Medical History Medical History Cirrhosis of liver COPD (chronic obstructive pulmonary disease) Tubular adenoma Constipation due to opioid therapy Hepatitis GERD (gastroesophageal reflux disease) Asthma Reactive depression Restless legs syndrome (RLS) Surgical History Surgical History S/P wrist surgery S/P shoulder surgery Family History Family History Father Heart disease COPD (chronic obstructive pulmonary disease) Unknown Allergies Social History Social History Smoking packs per day: 1 Smoking cigarettes per day: 20.0 Years smoked: 20 Smoking pack-years: 20.00 Smoking status: Former smoker Tobacco type: cigarettes Alcohol intake: never Substance use: never Substance use type: does not use Lack of Transportation: No Lack of Food: Never True Current Housing: I Have Housing Concerned About Future Housing: No Difficulty Paying Gas/Electric Bills: No Difficulty Paying for Meds: No Currently Unemployed: No Education: Associate Degree Difficulty w/ Childcare or Family Care: No Living arrangements: with family Occupation/Education: retired Gender identity (if verbalized by the patient): Male Spiritual care concerns: No Agree to blood products: Yes Comments At the time of my signature, I reviewed and agree with the nursing past medical, surgical, social, and family history. There is no relevant family history pertinent to the patient complaint. Exam Narrative: General: Well-developed, well nourished, in no apparent distress Head: Normocephalic, atraumatic Eyes: Pupils equally round and reactive to light bilaterally, EOM intact, sclera and conjunctive clear, no discharge, lids normal Ears: TMs intact and clear, ear canals clear, no drainage, grossly hearing normal. Nose: Nares patent, no discharge, no inflammation, no sinus tenderness. Mouth: Oropharynx without lesions or masses, good dentition, MMM. Tongue midline, even rise and fall of uvula Neck: Supple, trachea midline, no enlargement of anterior or posterior cervical nodes, no thyroid masses or goiter palpable. Cardio: Regular rate and rhythm, s1 and s2 normal, no murmur appreciated. Resp: Clear to auscultation bilaterally anteriorly and posteriorly, no rhonchi, rales, wheezing or rubs Musculoskeletal: No deformity, bruising/swelling noted to the left lower back, no tenderness over the cervical spine or thoracic spine, tender to palpation over the lumbar spine, left posterior ribs, left flank, left lower back, grossly normal range of motion, muscle strength strong and equal, peripheral pulse strong, no edema, no cyanosis, slow cautious gait and station Neuro: Alert and oriented x4 with normal speech, no focal deficits, cranial nerves I through XII intact, muscle strength 5 out of 5, sensation intact bilaterally Course Course Emergency Course: Portions of this record may have been created with voice recognition software. Level of Care: Express Care Visit Vital Signs Vital signs: Vital Signs Temperature 36.5 C 12/14/24 11:35 Pulse Rate 63 12/14/24 11:35 Respiratory Rate 16 12/14/24 11:35 Blood Pressure 139/90 12/14/24 11:35 Pulse Oximetry 98 12/14/24 11:35 Temperature 36.5 C 12/14/24 11:35 Pulse Rate 63 12/14/24 11:35 Respiratory Rate 16 12/14/24 11:35 Blood Pressure 139/90 12/14/24 11:35 Pulse Oximetry 98 12/14/24 11:35 Vital signs reviewed Transfer Transfered to: [facility] Transportation: Other (Private car) Transfer rationale: Higher level of care- fell from 8 foot ladder- left flank pain, left/mid lower back pain, and left posterior rib pain. Accepting physician: Dr. Peter. Transfer comments: Declined EMS MDM - Back Pain/Injury MDM Narrative Medical decision making narrative: At the time of visit patient is resting comfortably on the exam table. Patient appears to be nontoxic. Complaints of left lower back pain/injury. He reports he fell approximately 8 ft off of a ladder when he was trimming a tree limb just prior to arrival. States he fell onto the ground and his . Landed on his left side. Denies hitting his head or any loss of consciousness. Denies any neck pain. Has some bruising/swelling to the left lower back/left posterior rib/left flank area. States that it knocked the wind out of him. Denies any chest pain or shortness of breath at this time. He has not urinated since he fell. Rates his pain 10/10 with movement and 6/10 at rest. Has not taken any medications for his pain. Vital signs are stable. On exam patient has bruising/swelling noted to the left lower back, no tenderness over the cervical spine or thoracic spine, tender to palpation over the lumbar spine, left posterior ribs, left flank, left lower back, slow and cautious moving gait. Plan: Patient has had fall from approximately 8 ft and landed on his left side-hitting the ground-states did break some of this fall as he fell on to her as well. Recommend [facility] to [facility] or [facility] for further evaluation of his injuries. He declines going over to [facility]. He would rather go to [facility] be evaluated and be transferred if necessary. Discussed that [facility] is not a trauma center and they may not be able to perform all the appropriate treatment/diagnostic imaging that the patient may need. He voiced understanding. Contacted Dr. Peter and discussed patient's case and she accepts patient for transfer. Patient wants to go by private car. Differential Diagnosis Differential diagnosis: Likely lumbar radiculopathy, sciatica, strain of lumbar region, renal colic, pyelonephritis, thoracic back pain, AAA and discitis Discharge Plan Discharge Clinical Impression: Acute left flank pain, Rib pain on left side, Fall on and from ladder, initial encounter Low back pain Qualifiers: Chronicity: acute Back pain laterality: left Sciatica presence: without sciatica Qualified Code(s): M54.50 - Low back pain, unspecified Patient Disposition: Acute Care Hospital Condition: Stable Patient Language: Nepali Prescriptions: No Action sildenafil [Viagra] 100 mg tablet 100 mg PO DAILY PRN (Reason: sexual activity) Qty: 10 5RF Rx Instructions: administer 30 minutes to 4 hours before activity esomeprazole magnesium [Nexium] 40 mg capsule,delayed release(DR/EC) 40 mg PO DAILY Qty: 100 1RF gabapentin 300 mg capsule See Rx Instructions .ROUTE .COMPLEX Qty: 200 1RF Dose Instruction: TAKE 1 CAPSULE BY MOUTH TWICE DAILY Rx Instructions: TAKE 1 CAPSULE BY MOUTH TWICE DAILY Follow-up/Referrals: Leonardo Isidro MD [Primary Care Provider, Family Practice] Time of Disposition: 12:00 Quality NIHSS Nursing Documentation ED NIHSS nursing documentation: reviewed/agree
[2024-12-14 11:35] VITALS: BP 139/90; PULSE 63; RESP 16; TEMP 36.5; O2SAT 98
== END 2024-12-14 11:50 | disposition short-term general hospital (02) ==
PROVIDERS: Emergency Provider Nurse Practitioner Family; PCP Family Medicine
DX: R10.A2 Flank pain, left side (principal); R07.89 Other chest pain; M54.50 Low back pain, unspecified; W11.XXXA Fall on and from ladder, initial encounter; K74.60 Unspecified cirrhosis of liver; J44.9 Chronic obstructive pulmonary disease, unspecified; K21.9 Gastro-esophageal reflux disease without esophagitis; G25.81 Restless legs syndrome; Z87.891 Personal history of nicotine dependence
CPT/HCPCS: 99212; G0463

== ENCOUNTER 2024-12-14 12:11 | Emergency (ER) | payer MEDICARE, SELFPAY ==
--- NOTE | ~2024-12-14 | CT_ITS ---
EXAMINATION: CT chest abdomen pelvis w con DATE: 12/14/2024 14:15 INDICATION: Chest and abdominal injury. Fall from ladder. TECHNIQUE: Computed tomography (CT) of the chest, abdomen, and pelvis was performed with 100 mL Omnipaque 350 intravenous contrast. Automated exposure control and iterative reconstruction technique were employed. The dose-length product was 705.33 mGy-cm. COMPARISON: None FINDINGS: CHEST CT: There is mild emphysema. There is mild atelectasis bilaterally. Calcified pulmonary nodules and calcified mediastinal lymph nodes are consistent with old granulomatous disease. No pleural effusion. The heart size is normal. No pericardial effusion. Paraesophageal varices are noted. There is bilateral g ynecomastia. There is mild thoracic spondylosis. ABDOMEN/PELVIS CT: The liver demonstrates surface nodularity, consistent with cirrhosis. There is a gallstone in the gallbladder, which is normal in size. The spleen, pancreas, and adrenal glands are normal. There are cysts in the kidneys measuring up to 2.4 cm on the left. There is a right inguinal hernia containing fat. There are no dilated loops of bowel. The appendix is normal. There are no pathologically enlarged lymph nodes. There is no free intraperitoneal fluid. There is a benign bone island in left femoral head. There are fractures of left L1 and L2 transverse processes. There is severe lower lumbar spondylosis. IMPRESSION: 1. Fractures of the left L1 and L2 transverse processes. 2. Cirrhosis of the liver with portal venous hypertension. 3. Mild emphysema. 4. Right inguinal hernia containing fat. Reviewed, dictated and finalized at location E.
--- NOTE | ~2024-12-14 | CT_ITS ---
EXAMINATION: CT brain wo con DATE: 12/14/2024 14:16 INDICATION: Fall from 8 foot ladder TECHNIQUE: Computed tomography (CT) of the head was performed without intravenous contrast. Sagittal and coronal reconstructions were performed. The mA was adjusted according to patient size. Iterative reconstruction technique was employed. The dose-length product was 681.00 mGy-cm. COMPARISON: 05/21/2011 FINDINGS: No fracture. No acute intracranial hemorrhage, acute infarction or abnormal extra axial fluid collection. There is mild scattered white matter hypoattenuation consistent with chronic small vessel ischemic disease. Ventricles are normal and symmetric. No mass/mass effect. Changes of bilateral intraocular lens replacement. The orbits and mastoid air cells are normal. Small mucous retention cyst at the right frontoethmoidal recess. Remaining paranasal sinuses including the left maxillary sinus are now clear. Again seen are thickened sclerotic rockwell of the left maxillary sinus consistent with chronic s inusitis. IMPRESSION: 1. No fracture or acute intracranial process. 2. Mild scattered white matter hypoattenuation consistent with chronic small vessel ischemic disease. Reviewed, dictated and finalized at location A. IMPRESSION: 1. No fracture or acute intracranial process. 2. Mild scattered white matter hypoattenuation consistent with chronic small ve ssel ischemic disease.
--- NOTE | ~2024-12-14 | CT_ITS ---
EXAMINATION: CT cervical spine wo con DATE: 12/14/2024 14:16 INDICATION: Neck injury. TECHNIQUE: Computed tomography (CT) of the cervical spine was performed without intravenous contrast. Automated exposure control and iterative reconstruction technique were employed. The dose-length product was 406.70 mGy-cm. COMPARISON: None FINDINGS: There is mild emphysema. There is 2 mm anterolisthesis of C4 on C5. Vertebral body heights are normal. There is ankylosis of the facet joints and uncovertebral joints at C3-C4. There is mildly decreased disc height at C4-C5, moderately decreased disc height at C5-C6, and severely decreased disc height at C6-C7. There is multilevel severe facet joint osteoarthritis. There is mild neural foraminal stenosis at multiple levels on either side. There is mild central canal stenosis at C3-C4, C5-C6, and C6-C7. IMPRESSION: 1. No fracture. 2. Severe cervical spondylosis. Reviewed, dictated and finalized at location E.
[2024-12-14 12:19] VITALS: BP 120/84; PULSE 71; RESP 16; TEMP 36.6; O2SAT 98
--- OUTSIDE RECORDS SUMMARY | 2024-12-14 13:54 | XMS_ITS | Clinical Summary ---
Author Organization [facility] Address [address] [place] [address] Phone Care Team Providers Care Hydrogen Operator Name Role Phone Venessa Isidro MD Primary Care Provider +1- [phone] Allergies Active Allergy Reactions Criticality Noted Date [...] 5:05 PM CDT Height 167.6 cm (5' 6) 07/19/2017 5:05 PM CDT Body Mass Index 23.4 07/19/2017 5:05 PM CDT Plan of Treatment Health Maintenance Due Date Last Done Comments Hepatitis C Virus (HCV) Screening 1960 TdaP Immunization 1960 Cologuard 05/29/2003 Colonoscopy 05/29/2003 Colorectal Cancer Screening 05/29/2003 Immunochemical Fecal Occult Blood 05/29/2003 Pneumococcal Immunization (5 0+ years) (1 of 1 - PCV) 2008 Zoster Immunization (1 of 2) 2008 Influenza Immunization (#1) 2024 SARS-COV-2 Immunization (2024- season) 2024 01/31/2021, 06/06/2020, 05/16/2020 Respiratory Syncytial Virus (RSV) Immunization (Adult) (1 - 1-dose 75+ series) 2033 Hepatitis B Immunization Aged Out No longer eligible based on patient's age to complete this topic Human Papillomavirus (HPV) Immunization Aged Out No longer eligible b ased on patient's age to complete this topic Meningococcal Immunization (ACWY) Aged Out No longer eligible b ased on patient's age to complete this topic Rotavirus Immunization Aged Out No lo nger eligible based on patient's age to complete this topic Care Teams Hydrogen Operator Relationship Specialty Start Date End Date Venessa Isidro MD PCP - General Family Medicine 01/17/17
--- OUTSIDE RECORDS SUMMARY | 2024-12-14 13:54 | XMS_ITS | Clinical Summary ---
Author Organization [facility] Address [address] [place] [phone] Phone Care Team Providers Care Building Manager Name Role Phone Leonardo Isidro MD Primary Care Provider +1- [phone] Allergies Active Allergy Reactions Criticality Noted Date [...] AM CD T Height 167.6 cm (5' 6) 08/10/2017 4:39 PM CDT Body Mass Index [...] years 1-dose series) 2018 INFLUENZA VACCINE (#1) 2024 Insurance RX [employer] RX Member Subscriber Plan / Payer (Ef fective for All Dates) Name:Don Carbajal Relation to Subscriber:Self Name:Don Carbajal Payer ID:Not on file Type:RX LDI Address: [place] Advance Directives For more information, please contact: [phone] * Full Code (Latest Code Status on File) Date Activated Date Inactivated Comments 08/10/2017 3:08 PM 08/13/2017 2:34 PM Care Teams Building Manager Relationship Specialty Start Date End Date Leonardo Isidro MD PCP - General Family Practice 08/10/17
--- OUTSIDE RECORDS SUMMARY | 2024-12-14 13:54 | XMS_ITS | Clinical Summary ---
Author Organization [facility] [employer] Address [address] [place] [address] Care Team Providers Care Terminal Gauger Supervisor Name Role Phone Leonardo Isidro MD Primary Care Provider +1- [phone] Source Comments [facility] [employer],non-owned Affiliates and Associated Physician Practices is amultiple site organization consisting of ambulatory clinics and hospital sitesin [place], [place], [place] and [place]. This disclosure is being madepursuant to the Care Everywhere program and may not contain all information available regarding this patient. Last updated 17.[facility] [employer] Allergies Active Allergy Reactions Criticality Noted Date [...] on file Legal Sex Male 9:01 AM CENTRAL SCHEDULER Gender Identity Not on file Sexual Orientation Not on file Last Filed Vital Signs Vital Sign Reading Time Taken Comments Blood Pressure 126/77 02/11/2023 8:40 AM CENTRAL SCHEDULER Pulse 64 02/11/2023 8:40 AM CENTRAL SCHEDULER Temperature 36.2 C (97.2 F) 02/11/2023 8:40 AM CENTRAL SCHEDULER Respiratory Rate 18 02/11/2023 8:40 AM CENTRAL SCHEDULER Oxygen Saturation 99% 02/11/2023 8:40 AM CENTRAL SCHEDULER Inhaled Oxygen Concentration - - Weight 77.3 kg (170 lb 6.4 oz) 02/11/2023 8:40 A M CENTRAL SCHEDULER Height 167.6 cm (5' 6) 02/11/2023 8:40 AM CENTRAL SCHEDULER Body Mass Index 27.5 02/11/2023 8:40 AM CENTRAL SCHEDULER Plan of Treatment Health Maintenance Due Date [...] 2-dose series) 07/19/2018 01/19/2018 AAA SCREENING 05/29/2023 DEPRESSION SCREENING 03/03/2024 MEDICARE AWV CALENDAR YEAR 2024 COVID-19 VACCINE (1 - season) 2024 INFLUENZA VACCINE (#1) 2024 SCREENING FOR DIABETES 09/08/2026 , 01/03/2023, [...] Management General On track( 022 9:03 AM CENTRAL SCHEDULER) Diana Soler, RN Note: Expected end date: [...] C RNA QUANTITATIVE Routine 02/13/2021 9:33 AM CENTRAL SCHEDULER Compensated HCV cirrhosis ENDOSCOPY, COLON, SCREENING Routine 04/28/2020 12:08 PM CENTRAL SCHEDULER from Last 3 Months or Most Recently [...] 46 U/L [facility] Comment: Test Performed at: [facility] [id number] [place] [phone] GERARD DUDLEY MD Blood BLOOD SPECIMEN / Unknown 09/09/2023 8:47 AM CDT 09/09/2023 8:48 AM CDT us Valente Jett MD LAB - CHEMISTRY ORDERABLES Fin al Result [facility] [address] [place] [address] * HEPATITIS C RNA QUANTITATIVE (02/13/2021 9:33 AM CENTRAL SCHEDULER) Pathologist [facility] Hepatitis C RNA PCR, Interp Not detected Not detected 02/15/2021 12:49 PM CENTRAL SCHEDULER [facility] Blood BLOOD SPECIMEN / Unknown Lab Venipuncture / Unknown 02/13/2021 9:33 AM CENTRAL SCHEDULER 02/13/2021 10:23 AM CENTRAL SCHEDULER Narrative [facility] - 02/15/2021 12:49 PM CENTRAL SCHEDULER The Hepatitis C viral (HCV) RNA analysis utilized a serum sample, real-time reverse data analytics architect PCR, and is reported as Not Detected, [...] the isolation of HCV RNA with reverse data analytics architect of genomic HCV RNA followed by real-time PCR in the presence of an unrelated RNA internal control. The internal control ensures that RNA is isolated, and that no general significant inhibitors of the RT-PCR process are present. The analysis was performed using a U.S. FDA approved test methodology (Intrallect Real Time HCV). Valente Jett MD LAB - CHEMISTRY ORDERABLES Fin al Result Performing Organization Address City/[facility] Co de Phone Number [facility] [address] [place] [address], [facility] [phone] * ENDOSCOPY, COLON, SCREENING (04/28/2020 12:08 PM CENTRAL SCHEDULER) Report Endoscopy POC Endoscopy Department Report _ [...] entire procedure. Procedure Code(s): --- Professional --- 01176, Esophagogastroduod enoscopy, flexible, transoral; diagnostic, including collection of specimen(s) by brushing or washing, when performed (separate procedure) Diagnosis Code(s): --- Professional --- K31.89, Other diseases of stomach and duodenum I85.00, Esophageal varices without bleeding CPT copyright 2019 [employer]. All rights reserved. The codes documented in this report are preliminary and upon coder operator review may be revised to meet current compliance requirements. Valente Jett, 04/28/2020 1:42:20 PM Note Initiated On: 04/28/2020 12:08 PM Number of Addenda: [address] [address] [facility] 04/28/2020 12:0 8 PM CENTRAL SCHEDULER Valente Jett MD GI PROCEDURE ORDERABLES Edited Result - Final [facility] from Last 3 Months or Most Recently Relevant to Health Maintenance Insurance [facility] MANAGED MEDICARE ADV [facility] MANAGED MEDICARE ADV Care Teams Terminal Gauger Supervisor Relationship Specialty Start Date End Date Leonardo Isidro MD [address] [place] [phone] PCP - General Family Medicine 10/30/17
[2024-12-14 14:00] LABS: Hematocrit 48.8 % (42.0-52.0); Hemoglobin 16.2 g/dL (14.0-18.0); Immature Granulocyte Percent A 0.7 % (0-0.5); Lymphocytes Absolute Auto 0.81 K/mm3 (0.9-3.2); Mean Corpuscular HGB Conc 33.2 g/dl (32-36); Mean Corpuscular Hemoglobin 32.3 pg (26-34); Mean Corpuscular Volume 97.2 fl (80-100); Nucleated Red Blood Cells Absolute Auto 0.000 K/mm3 (0.0-0.012); Nucleated Red Blood Cells Perc 0.0 % (0.0-0.2); Platelet Count Result 205 k/mm3 (150-375); Red Blood Count 5.02 M/mm3 (4.6-6.20); White Blood Count 11.4 K/mm3 (4.5-10.0)
[2024-12-14 14:05] LABS: Estimated CRCL calculation 58 ml/min; Estimated Glomerular Filt Rate > 60
[2024-12-14 14:09] LABS: INR 1.1; Prothrombin Time 14.1 Seconds (11.1-14.7)
[2024-12-14 14:10] LABS: Partial Thromboplastin Time 25.9 Seconds (22.3-36.8)
[2024-12-14 14:11] LABS: Alanine Aminotransferase 25 U/L (6-50); Albumin Level 4.7 g/dL (3.5-5.1); Alkaline Phosphatase 91 U/L (38-126); Anion Gap 11 mmol/L (4-12); Aspartate Amino Transferase 35 U/L (17-59); Bilirubin,Total 1.5 mg/dL (0.2-1.3); Blood Urea Nitrogen 10 mg/dL (9-20); Calcium 9.6 mg/dL (8.4-10.2); Carbon Dioxide 25 mmol/L (22-30); Chloride 102 mmol/L (98-107); Estimated CRCL calculation 57 ml/min; Estimated Glomerular Filt Rate > 60; Glucose 99 mg/dL (65-110); Potassium 3.9 mmol/L (3.4-5.0); Sodium 138 mmol/L (137-145); Total Protein 8.4 g/dL (6.3-8.2)
[2024-12-14] MEDS: MORPHINE SULFATE (*CRX) 4 MG/ML INJ IV PUSH (14:23)
--- NOTE | 2024-12-14 14:24 | ED.FALL ---
HPI - Fall General Chief Complaint: Fall Stated Complaint: fall-back pain Time Seen by Provider: 12/14/24 13:40 Source: patient, family and other ([facility] pre-arrival report) Mode of arrival: ambulatory Limitations: no limitations History of Present Illness HPI Narrative: [place], [facility] at urgent care facility had called notifying us that this patient would be coming here. He informed us that patient had fallen off of an 8 ft ladder and based on the mechanism as well as the identified pain in traumatic injury, it had strongly been advised that patient go directly to a tertiary trauma facility such as [facility] or [facility] however he had declined and said that he would go to [place]. He had been noted to have left posterior rib pain and flank pain and bruising and swelling had been noted in these areas. Underlying history of arthritis and he had low back pain tenderness to palpation. Patient had not urinated since the time of the accident while at urgent care. He denied CP or SOB. = History of arthritis for which he receives injections, last one was 3 months ago and next one December 29. No neck or head pain . Not on anticoagulation. pcp Leonardo Isidro. Reports it feeling like muscle pain, had been 6/10 in severity, now 10/10. No loss of consciousness. Related Data Allergies Allergy/AdvReac Type Severity Reaction Status Date / Time Penicillins Allergy Unknown Unknown Verified 12/14/24 14:22 duloxetine (From Cymbalta) AdvReac Confusion Verified 12/14/24 14:22 PMF Past Medical History Medical History Cirrhosis of liver COPD (chronic obstructive pulmonary disease) Tubular adenoma Constipation due to opioid therapy Hepatitis GERD (gastroesophageal reflux disease) Asthma Reactive depression Restless legs syndrome (RLS) Surgical History Surgical History S/P wrist surgery left S/P shoulder surgery Family History Family History Father Heart disease COPD (chronic obstructive pulmonary disease) Unknown Allergies Social History Social History (Updated 12/14/24 @ 15:58 by Tere Peter MD) Smoking packs per day: 1 Smoking cigarettes per day: 20.0 Years smoked: 20 Smoking pack-years: 20.00 Smoking status: Former smoker Tobacco type: cigarettes Alcohol intake: never Substance use: never Substance use type: does not use Lack of Transportation: No Lack of Food: Never True Current Housing: I Have Housing Concerned About Future Housing: No Difficulty Paying Gas/Electric Bills: No Difficulty Paying for Meds: No Currently Unemployed: No Education: Associate Degree Difficulty w/ Childcare or Family Care: No Living arrangements: with family Occupation/Education: retired Additional occupation/education comments: since approx 2016 Gender identity (if verbalized by the patient): Male Spiritual care concerns: No Agree to blood products: Yes Exam Narrative: GENERAL: well-nourished, in moderate acute distress/pain. HEAD: Normocephalic, atraumatic. EYES: Non injected, non icteric ENT: Nares clear, no rhinorrhea or epistaxis. Gross auditory acuity intact. NECK: Supple. No meningismus. CHEST: Speaking in full sentences. No respiratory distress. HEART: Regular rate and rhythm. . ABDOMEN: Soft, nondistended. No rigidity or guarding. Not peritoneal EXTREMITIES: Normal range of motion. No lower extremity edema. SKIN: Warm, dry. Ecchymosis and swelling along left flank. Paraspinal tenderness to palpation. No midline TTP or bony deformity or step offs NEURO: No focal deficits. Alert and oriented. Answering questions. Following commands. Normal speech without aphasia or dysarthria. PSYCH: Normal mood and affect. Course Vital Signs Vital signs: Vital Signs Temperature 97.9 F 12/14/24 12:19 Pulse Rate 71 12/14/24 12:19 Respiratory Rate 16 12/14/24 12:19 Blood Pressure 120/84 12/14/24 12:19 Pulse Oximetry 98 12/14/24 12:19 Temperature 97.9 F 12/14/24 12:19 Pulse Rate 70 12/14/24 17:23 Respiratory Rate 16 12/14/24 17:23 Blood Pressure 115/82 12/14/24 17:23 Pulse Oximetry 100 12/14/24 17:23 MDM - Fall MDM Narrative Medical decision making narrative: Patient presents after falling off an 8 foot ladder. Initially presented to Urgent Care and had been advised/encouraged to go to a trauma center but declined and now present here. In the emergency department they are afebrile with vital signs within normal limits. Chest x-ray and pelvic x-ray had been ordered initially in addition to this CT scans presuming that these would be the initial adjuncts. However, patient had been taken to CT scan prior to x-ray technicians being of available. For this reason, the studies are now cancelled. Mild leukocytosis. Normal renal function. EThanol negative. CT as below. Discussed patient with hotel recreational facilities manager neurosurgeon Dr Smith who recommends either LSO brace (or TLSO); I did call [facility] who was able to present to fit him with this. Had written a paper Rx for this. UDS positive for opiates and cannabinoids; obtained hours after morphine given for pain. Patient sent home with multimodal pain regimen; he requests that OxyContin/oxycodone not be a part of this regimen given that it caused significant constipation in him previously however Cheraw/Vicodin had been fine previously. Patient given an incentive spirometer. Stable for discharge. Differential Diagnosis Differential diagnosis: Likely compression fracture and other (intracranial hemorrhage; intra-abdominal hemorrhage/splenic lac/liver lac; bony contusions; PTX/MICHELLE; RP hemorrhage; ) Lab Data Attestation: I reviewed the patient's lab results. 12/14/24 13:54 12/14/24 14:03 Labs: Lab Results 12/14/24 12/14/24 12/14/24 Range/Units 13:53 13:54 14:03 WBC 11.4 H (4.5-10.0) K/mm3 RBC 5.02 (4.6-6.20) M/mm3 Hgb 16.2 (14.0-18.0) g/dL Hct 48.8 (42.0-52.0) % MCV 97.2 (80-100) fl MCH 32.3 (26-34) pg MCHC 33.2 (32-36) g/dl RDW 12.5 (11.5-14.5) % Plt Count 205 (150-375) k/mm3 MPV 10.4 (7.4-10.4) fl Immature Gran % (Auto) 0.7 H (0-0.5) % Neut % (Auto) 82.7 H (45.5-73.1) % Lymph % (Auto) 7.1 L (18.3-44.2) % [place] % (Auto) 5.4 (2.6-8.5) % Eos % (Auto) 3.3 (0-4.4) % Baso % (Auto) 0.8 (0.2-1.2) % Lymph # (Auto) 0.81 L (0.9-3.2) K/mm3 [place] # (Auto) 0.6 (0.1-0.6) K/mm3 Eos # (Auto) 0.4 H (0-0.3) K/mm3 Baso # (Auto) 0.1 (0.0-0.1) K/mm3 Abs Immat Gran (auto) 0.08 H (0.00-0.031) K/mm3 Absolute Neuts (auto) 9.4 H (1.3-6.7) K/mm3 Absolute Nucleated RBC 0.000 (0.0-0.012) K/mm3 Nucleated RBC % 0.0 (0.0-0.2) % PT 14.1 (11.1-14.7) Seconds INR 1.1 APTT 25.9 (22.3-36.8) Seconds Sodium 138 (137-145) mmol/L Potassium 3.9 (3.4-5.0) mmol/L Chloride 102 (98-107) mmol/L Carbon Dioxide 25 (22-30) mmol/L Anion Gap 11 (4-12) mmol/L BUN 10 (9-20) mg/dL Creatinine 1.01 1.00 (0.7-1.3) mg/dL Estim Creat Clear Calc 57 58 ml/min Estimated GFR > 60 > 60 (59 - ) Glucose 99 (65-110) mg/dL Calcium 9.6 (8.4-10.2) mg/dL Total Bilirubin 1.5 H (0.2-1.3) mg/dL AST 35 (17-59) U/L ALT 25 (6-50) U/L Alkaline Phosphatase 91 (38-126) U/L Total Protein 8.4 H (6.3-8.2) g/dL Albumin 4.7 (3.5-5.1) g/dL Urine Color Urine Appearance Urine pH Ur Specific [place] Urine Protein Urine Glucose (UA) Urine Ketones Ur Blood (Man) Urine Nitrate Urine Bilirubin Urine Urobilinogen Add Ur Microanalysis Leukocyte Esterase Rfl Urine RBC Urine WBC Urine WBC Clumps Ur Squamous Epith Cells Ur Transition Epith Cell Ur Renal Epithelial Cell New Home Biurate Crystals Calcium Carbonate Cryst Calcium Phosphate Cryst Calcium Oxalate Crystal Leucine Crystals Cystine Crystals Uric Acid Crystals Triple Phos Crystals Sulfonamide Crystals Cholesterol Crystals Talc Crystals Tyrosine Crystals Hippuric Acid Crystals Bilirubin Crystals Other Crystals Amorphous Sediment Other Sediment Urine Bacteria Urine Casts Cellular Casts Epithelial Casts Fatty Casts Hyaline Casts Granular Casts Waxy Casts Broad Casts RBC Casts WBC Casts Urine Starch Urine Mucus Urine Trichomonas Urine Yeast (Budding) Ur Oval Fat Bodies Sperm Presence Urine Opiates Screen (Negative) Urine Methadone Screen (Negative) Ur Barbiturates Screen (Negative) Ur Phencyclidine Scrn (Negative) Ur Amphetamine Screen (Negative) U Benzodiazepines Scrn (Negative) Urine Cocaine Screen (Negative) U Cannabinoids Screen (Negative) Ethyl Alcohol < 10 (<10) mg/dL 12/14/24 Range/Units 15:42 WBC (4.5-10.0) K/mm3 RBC (4.6-6.20) M/mm3 Hgb (14.0-18.0) g/dL Hct (42.0-52.0) % MCV (80-100) fl MCH (26-34) pg MCHC (32-36) g/dl RDW (11.5-14.5) % Plt Count (150-375) k/mm3 MPV (7.4-10.4) fl Immature Gran % (Auto) (0-0.5) % Neut % (Auto) (45.5-73.1) % Lymph % (Auto) (18.3-44.2) % [place] % (Auto) (2.6-8.5) % Eos % (Auto) (0-4.4) % Baso % (Auto) (0.2-1.2) % Lymph # (Auto) (0.9-3.2) K/mm3 [place] # (Auto) (0.1-0.6) K/mm3 Eos # (Auto) (0-0.3) K/mm3 Baso # (Auto) (0.0-0.1) K/mm3 Abs Immat Gran (auto) (0.00-0.031) K/mm3 Absolute Neuts (auto) (1.3-6.7) K/mm3 Absolute Nucleated RBC (0.0-0.012) K/mm3 Nucleated RBC % (0.0-0.2) % PT (11.1-14.7) Seconds INR APTT (22.3-36.8) Seconds Sodium (137-145) mmol/L Potassium (3.4-5.0) mmol/L Chloride (98-107) mmol/L Carbon Dioxide (22-30) mmol/L Anion Gap (4-12) mmol/L BUN (9-20) mg/dL Creatinine (0.7-1.3) mg/dL Estim Creat Clear Calc ml/min Estimated GFR (59 - ) Glucose (65-110) mg/dL Calcium (8.4-10.2) mg/dL Total Bilirubin (0.2-1.3) mg/dL AST (17-59) U/L ALT (6-50) U/L Alkaline Phosphatase (38-126) U/L Total Protein (6.3-8.2) g/dL Albumin (3.5-5.1) g/dL Urine Color Cancelled Urine Appearance Cancelled Urine pH Cancelled Ur Specific [place] Cancelled Urine Protein Cancelled Urine Glucose (UA) Cancelled Urine Ketones Cancelled Ur Blood (Man) Cancelled Urine Nitrate Cancelled Urine Bilirubin Cancelled Urine Urobilinogen Cancelled Add Ur Microanalysis Cancelled Leukocyte Esterase Rfl Cancelled Urine RBC Cancelled Urine WBC Cancelled Urine WBC Clumps Cancelled Ur Squamous Epith Cells Cancelled Ur Transition Epith Cell Cancelled Ur Renal Epithelial Cell Cancelled New Home Biurate Crystals Cancelled Calcium Carbonate Cryst Cancelled Calcium Phosphate Cryst Cancelled Calcium Oxalate Crystal Cancelled Leucine Crystals Cancelled Cystine Crystals Cancelled Uric Acid Crystals Cancelled Triple Phos Crystals Cancelled Sulfonamide Crystals Cancelled Cholesterol Crystals Cancelled Talc Crystals Cancelled Tyrosine Crystals Cancelled Hippuric Acid Crystals Cancelled Bilirubin Crystals Cancelled Other Crystals Cancelled Amorphous Sediment Cancelled Other Sediment Cancelled Urine Bacteria Cancelled Urine Casts Cancelled Cellular Casts Cancelled Epithelial Casts Cancelled Fatty Casts Cancelled Hyaline Casts Cancelled Granular Casts Cancelled Waxy Casts Cancelled Broad Casts Cancelled RBC Casts Cancelled WBC Casts Cancelled Urine Starch Cancelled Urine Mucus Cancelled Urine Trichomonas Cancelled Urine Yeast (Budding) Cancelled Ur Oval Fat Bodies Cancelled Sperm Presence Cancelled Urine Opiates Screen Positive A (Negative) Urine Methadone Screen Negative (Negative) Ur Barbiturates Screen Negative (Negative) Ur Phencyclidine Scrn Negative (Negative) Ur Amphetamine Screen Negative (Negative) U Benzodiazepines Scrn Negative (Negative) Urine Cocaine Screen Negative (Negative) U Cannabinoids Screen Positive A (Negative) Ethyl Alcohol (<10) mg/dL Imaging Data Radiologist's impression: Impressions Head CT 12/14/24 14:17 IMPRESSION: 1. No fracture or acute intracranial process. 2. Mild scattered white matter hypoattenuation consistent with chronic small vessel ischemic disease. Chest/Abdomen/Pelvis CT 12/14/24 14:18 IMPRESSION: 1. Fractures of the left L1 and L2 transverse processes. 2. Cirrhosis of the liver with portal venous hypertension. 3. Mild emphysema. 4. Right inguinal hernia containing fat. Cervical Spine CT 12/14/24 14:25 IMPRESSION: 1. No fracture. 2. Severe cervical spondylosis. Discharge Plan Discharge Clinical Impression: Fall from ladder, Fracture of transverse process of lumbar vertebra, Cirrhosis, Portal venous hypertension, Emphysema lung, Hernia, inguinal, right, Cervical spondylosis, Marijuana use, Contusion of flank, Contusion of chest wall Patient Disposition: Home Condition: Stable Instructions: Antibiotic Form, How to Use an Incentive Spirometer (ED), Narcotic Safety (ED), Emphysema (DC), Fall Prevention (ED), Rib Contusion (ED), Thoracolumbosacral Orthosis (DC), Transverse Process Fracture (ED), Chest Contusion (ED) Additional Instructions: As we discussed, use the multimodal combination of pain medications prescribed. Acetaminophen/Tylenol (maximum 4000 mg per day) is safe to take with NSAIDs (ibuprofen/Motrin) for pain relief. A muscle relaxer may also help at night. Topical lidocaine patch has also been prescribed. Wear the TLSO brace and follow up with Neurosurgery. For breakthrough pain, narcotic/opiate medication has been prescribed. Remember that each of these contains 325 mg of acetaminophen so take that into account so that you do not accidentally overdose on acetaminophen. Follow-up with primary care physician as well. Return to the emergency department any new or worsening symptoms. Return to the ER if you have increased pain in your back, you develop lower extremity weakness/numbness/paralysis, you have numbness or tingling in your private parts, or you are unable to control your ability to urinate/stool. Use the incentive spirometer to remind you to take deep breaths despite the pains that you do not developed a pneumonia. Patient Language: Citizen Of [place] Prescriptions: New acetaminophen 500 mg capsule 1,000 mg PO Q6H PRN (Reason: pain) Qty: 30 0RF ibuprofen 200 mg capsule 600 mg PO Q8H PRN (Reason: pain) Qty: 30 0RF lidocaine 4 % adhesive patch,medicated 1 patch topical DAILY PRN (Reason: pain) Qty: 10 0RF methocarbamol 750 mg tablet 750 mg PO HS Qty: 7 0RF hydrocodone-acetaminophen 5-325 mg tablet 1 tablet PO Q8H PRN (Reason: pain) Qty: 20 0RF No Action sildenafil [Viagra] 100 mg tablet 100 mg PO DAILY PRN (Reason: sexual activity) Qty: 10 5RF Rx Instructions: administer 30 minutes to 4 hours before activity esomeprazole magnesium [Nexium] 40 mg capsule,delayed release(DR/EC) 40 mg PO DAILY Qty: 100 1RF gabapentin 300 mg capsule See Rx Instructions .ROUTE .COMPLEX Qty: 200 1RF Dose Instruction: TAKE 1 CAPSULE BY MOUTH TWICE DAILY Rx Instructions: TAKE 1 CAPSULE BY MOUTH TWICE DAILY Follow-up/Referrals: Leonardo Isidro MD [Primary Care Provider, Family Practice] Faisal Smith MD [Physician, Neurosurgery] Time of Disposition: 16:41
[2024-12-14] MEDS: KETOROLAC 15 MG/ML VIAL (*BKC) IV PUSH (16:11)
[2024-12-14] MEDS: ACETAMINOPHEN 500 MG TABLET 1000 MG PO (16:11)
[2024-12-14] MEDS: HYDROmorphone HCL INJ (*CRX) 1 MG/ML SYR IV PUSH (16:11)
--- OUTSIDE RECORDS SUMMARY | 2024-12-14 16:16 | XMS_ITS | Clinical Summary ---
Author Organization [facility] Address [address] [place] [address] Phone Care Team Providers Care Sander Setter Name Role Phone Venessa Isidro MD Primary Care Provider [phone] Allergies Active Allergy Reactions Criticality Noted Date [...] age to complete this topic Care Teams Sander Setter Relationship Specialty Start Date End Date Venessa Isidro MD PCP - General Family Medicine 01/17/17
--- OUTSIDE RECORDS SUMMARY | 2024-12-14 16:16 | XMS_ITS | Clinical Summary ---
Author Organization [facility] Address [address] [place] [address] Care Team Providers Care Crap Shooter Name Role Phone Leonardo Isidro MD Primary Care Provider [phone]- [phone] Source Comments [facility],non-owned Affiliates and Associated Physician Practices is amultiple site organization consisting of ambulatory clinics and hospital sitesin [place], [place] and [place]. This disclosure is being madepursuant to the Care Everywhere program and may not contain all information available regarding this patient. Last updated 17.[facility] Allergies Active Allergy Reactions Criticality Noted Date [...] on file Legal Sex Male 9:01 AM [employer] HEL[employer] Gender Identity Not on file Sexual Orientation Not on file Last Filed Vital Signs Vital Sign Reading Time Taken Comments Blood Pressure 126/77 02/11/2023 8:40 AM [employer] HELPER Pulse 64 02/11/2023 8:40 AM [employer] HEL[employer] Temperature 36.2 C (97.2 F) 02/11/2023 8:40 AM [employer]ICATING [employer] HELPER Respiratory Rate 18 02/11/2023 8:40 AM [employer]ICATING [employer]OP HELPER Oxygen Saturation 99% 02/11/2023 8:40 AM METAL [employer] HELPER Inhaled Oxygen Concentration - - Weight 77.3 kg (170 lb 6.4 oz) 02/11/2023 8:40 A M [employer] Height 167.6 cm (5' 6) 02/11/2023 8:40 AM [employer]ICATING [employer] HELPER Body Mass Index 27.5 02/11/2023 8:40 AM [employer]ICATING [employer] HELPER Plan of Treatment Health Maintenance Due [...] Management General On track( 022 9:03 AM METAL F[employer]ICATING SHOP HELPER) Diana Soler, RN Note: Expected end [...] C RNA QUANTITATIVE Routine 02/13/2021 9:33 AM METAL [employer]ICATING SHOP HELPER Compensated HCV cirrhosis ENDOSCOPY, COLON, SCREENING Routine 04/28/2020 12:08 PM METAL F[employer]ICATING [employer]OP HELPER from Last 3 Months or Most [...] 46 U/L [facility] Comment: Test Performed at: [facility] [id number] [place] [id number] GERARD DUDLEY MD Blood BLOOD SPECIMEN / Unknown 09/09/2023 8:47 AM CDT 09/09/2023 8:48 AM CDT us Valente Jett MD LAB - CHEMISTRY ORDERABLES Fin al Result [facility] [address] [place] [address] * HEPATITIS C RNA QUANTITATIVE (02/13/2021 9:33 AM METAL F[employer]RICATING SHOP HELPER) Pathologist [facility] Hepatitis C RNA PCR, Interp Not detected Not detected 02/15/2021 12:49 PM METAL FABRICATING [employer]PER [facility] Blood BLOOD SPECIMEN / Unknown Lab Venipuncture / Unknown 02/13/2021 9:33 AM METAL F[employer]RICATING SHOP HELPER 02/13/2021 10:23 AM METAL F[employer]ICATING SHOP HEL[employer] Narrative [facility] - 02/15/2021 12:49 PM [employer]ICATING SHOP HELPER The Hepatitis C viral (HCV) RNA analysis utilized a serum sample, real-time reverse senior estimator PCR, and is reported as Not Detected, [...] the isolation of HCV RNA with reverse senior estimator of genomic HCV RNA followed by real-time PCR in the presence of an unrelated RNA internal control. The internal control ensures that RNA is isolated, and that no general significant inhibitors of the RT-PCR process are present. The analysis was performed using a U.S. FDA approved test methodology ([employer]Coin Real Time HCV). Valente Jett MD LAB - CHEMISTRY ORDERABLES Fin al Result Performing Organization Address City/[facility] Co de Phone Number [facility] [address] [place] [id number], [facility] [phone] * ENDOSCOPY, COLON, SCREENING (04/28/2020 12:08 PM [employer]IC[employer] HELPER) Report Endoscopy POC Endoscopy Department Report [...] entire procedure. Procedure Code(s): --- Professional --- 61990, Esophagogastroduod enoscopy, flexible, transoral; diagnostic, including collection of specimen(s) by brushing or washing, when performed (separate procedure) Diagnosis Code(s): --- Professional --- K31.89, Other diseases of stomach and duodenum I85.00, Esophageal varices without bleeding CPT copyright 2019 [employer]. All rights reserved. The codes documented in this report are preliminary and upon antisqueak filler review may be revised to meet current compliance requirements. Valente Jett, 04/28/2020 1:42:20 PM Note Initiated On: 04/28/2020 12:08 PM Number of Addenda: [address] [address] [facility] [employer] 04/28/2020 12:0 8 PM [employer] HELPER Valente Jett MD GI PROCEDURE ORDERABLES Edited Result - Final [facility] [employer] from Last 3 Months or Most Recently Relevant to Health Maintenance Insurance [employer] ADV [employer] ADV Care Teams Crap Shooter Relationship Specialty Start Date End Date Leonardo Isidro MD [address] [place] [id number] PCP - General Family Medicine 10/30/17
--- OUTSIDE RECORDS SUMMARY | 2024-12-14 16:16 | XMS_ITS | Clinical Summary ---
Author Organization [facility] Address [address] [place] [id number] Phone Care Team Providers Care Medicaid Biller Name Role Phone Leonardo Isidro MD Primary Care Provider [phone]- [phone] Allergies Active Allergy Reactions Criticality Noted Date [...] Advance Directives For more information, please contact: [phone] * Full Code (Latest Code Status on File) Date Activated Date Inactivated Comments 08/10/2017 3:08 PM 08/13/2017 2:34 PM Care Teams Medicaid Biller Relationship Specialty Start Date End Date Leonardo Isidro MD PCP - General Family Practice 08/10/17
--- OUTSIDE RECORDS SUMMARY | 2024-12-14 16:16 | XMS_ITS | Clinical Summary ---
Author Organization [facility] Address [address] [place] [address] Care Team Providers Care Dialysis Patient Care Technician Name Role Phone Unavailable Primary Care Provider [...] Vaccines (1 of 2) 2008 COVID-19 Vaccine (2023-2 5 season) 2024 Influenza Adult (#1) 2024 RSV Immunization or 60+ Years (1 - [...]
[2024-12-14 16:17] VITALS: BP 112/82; PULSE 64; RESP 14; O2SAT 100
[2024-12-14 16:19] LABS: Cannabinoid Screen Urine Positive (Negative)
[2024-12-14] MEDS: LIDOCAINE 5% PATCH 1 PATCH TRANSDERM (17:09)
[2024-12-14 17:23] VITALS: BP 115/82; PULSE 70; RESP 16; O2SAT 100
== END 2024-12-14 17:25 | disposition home or self-care (01) ==
PROVIDERS: Emergency Provider Student in an Organized Health Care Education/Training Program; PCP Family Medicine
DX: S32.018A Other fracture of first lumbar vertebra, initial encounter for closed fracture (principal); S32.028A Other fracture of second lumbar vertebra, initial encounter for closed fracture; S20.212A Contusion of left front wall of thorax, initial encounter; S30.13XA Contusion of flank (latus) region, initial encounter; J43.9 Emphysema, unspecified; K74.60 Unspecified cirrhosis of liver; K76.6 Portal hypertension; M47.812 Spondylosis without myelopathy or radiculopathy, cervical region; K40.90 Unilateral inguinal hernia, without obstruction or gangrene, not specified as recurrent; F12.90 Cannabis use, unspecified, uncomplicated; K21.9 Gastro-esophageal reflux disease without esophagitis; G25.81 Restless legs syndrome; Z87.891 Personal history of nicotine dependence; W11.XXXA Fall on and from ladder, initial encounter
CPT/HCPCS: 36415; 70450; 71260; 72125; 74177; 80053; 80307; 82077; 85025; 85610; 85730; 96374; 96375; 99284; A9270; J1171; J1885; J2270; Q9967

== ENCOUNTER 2025-01-25 09:10 | Outpatient (CLI) | payer MEDICARE, SELFPAY ==
--- NOTE | ~2025-01-25 | US_ITS ---
EXAMINATION: US abdomen complete, 01/25/2025 9:11 CERTIFIED COMPOSITES TECHNICIAN HISTORY: K74.60 - Unspecified cirrhosis of liver COMPARISON: None Technique: Matias-scale and color Doppler images were obtained. Findings: LIVER: Moderate increased echogenicity of the liver. The liver contours are nodular. . GALLBLADDER/BILIARY: Cholelithiasis, no wall thickening. CBD 3 mm. Keasbey sign negative. PANCREAS: Pancreas limited by bowel gas. SPLEEN: Spleen measures 11.5 cm.. KIDNEYS: The renal cortices are intact with no solid masses or calculi, no hydronephrosis. Right Kidney: Right kidney 8.9 x 3.9 x 4.8 cm, normal. Left Kidney: Left kidney midpole simple cyst 2.3 x 2.2 cm. AORTA: Normal caliber aorta. IVC: Unremarkable. FREE FLUID: None. Impression: 1. Cirrhotic disease of the liver. 2. Cholelithiasis. 3. Simple appearing left renal cyst Reviewed, dictated and finalized at location P. IFIED COMPOSITES TECHNICIAN Impression: 1. Cirrhotic disease of the liver. 2. Cholelithiasis. 3. Simple appearing left renal cyst
== END 2025-01-25 09:11 | disposition home or self-care (01) ==
LOC: GOSHIMG 09:10
PROVIDERS: PCP Family Medicine; Visit Provider Family Medicine
DX: K74.60 Unspecified cirrhosis of liver (principal); B19.20 Unspecified viral hepatitis C without hepatic coma; K80.20 Calculus of gallbladder without cholecystitis without obstruction; N28.1 Cyst of kidney, acquired
CPT/HCPCS: 76700

== ENCOUNTER 2025-01-25 09:27 | Outpatient (CLI) | payer MEDICARE, SELFPAY ==
--- OUTSIDE RECORDS SUMMARY | 2025-01-25 10:17 | XMS_ITS | Clinical Summary ---
Author Organization [facility] Address [address] [place] [address] Phone Care Team Providers Care Crotch Piece Baster Name Role Phone Venessa Isidro MD Primary Care Provider +1- [phone] Allergies Active Allergy Reactions Criticality Noted Date [...] Virus (HCV) Screening 1960 TdaP Immunization 1960 Varicella Immunization (1 of 2 - 13+ 2-dose series) 05/29/1971 Cologuard 05/29/2003 Colonoscopy 05/29/2003 Colorectal Cancer Screening 05/29/2003 Immunochemical Fecal Occult Blood 05/29/2003 Pneumococcal Immunization (5 0+ years) (1 of 1 - PCV) 2008 Zoster Immunization (1 of 2) 2008 Influenza Immunization (#1) 2024 SARS-COV-2 Immunization ( - season) 2024 01/31/2021, 06/06/2020, 05/16/2020 Respiratory Syncytial [...] age to complete this topic Care Teams Crotch Piece Baster Relationship Specialty Start Date End Date Venessa Isidro MD PCP - General Family Medicine 01/17/17
--- OUTSIDE RECORDS SUMMARY | 2025-01-25 10:17 | XMS_ITS | Clinical Summary ---
Author Organization [facility] [employer] Address [address] [place] [address] Care Team Providers Care Siding Coreboard Inspector Name Role Phone Leonardo Isidro MD Primary Care Provider +1- [phone] Source Comments [facility] [employer]non-owned Affiliates and Associated Physician Practices is amultiple site organization consisting of ambulatory clinics and hospital sitesin [place], [place], [place] and [place]. This disclosure is being madepursuant to the Care Everywhere program and may not contain all information available regarding this patient. Last updated 17.[facility] [employer] Allergies Active Allergy Reactions Criticality Noted Date [...] on file Legal Sex Male 9:01 AM TOOL MACHINIST Gender Identity Not on file Sexual Orientation Not on file Last Filed Vital Signs Vital Sign Reading Time Taken Comments Blood Pressure 126/77 02/11/2023 8:40 AM TOOL MACHINIST Pulse 64 02/11/2023 8:40 AM TOOL MACHINIST Temperature 36.2 C (97.2 F) 02/11/2023 8:40 AM TOOL MACHINIST Respiratory Rate 18 02/11/2023 8:40 AM TOOL MACHINIST Oxygen Saturation 99% 02/11/2023 8:40 AM TOOL MACHINIST Inhaled Oxygen Concentration - - Weight 77.3 kg (170 lb 6.4 oz) 02/11/2023 8:40 A M TOOL MACHINIST Height 167.6 cm (5' 6) 02/11/2023 8:40 AM TOOL MACHINIST Body Mass Index 27.5 02/11/2023 8:40 AM TOOL MACHINIST Plan of Treatment Health Maintenance Due Date Last Done Comments COLOGUARD (AGES 45-75) - COLON CA SCREENING 1958 CT COLONOGRAPHY - COLON CA SCREENING 1958 FIT - COLON CA SCREENING 1958 FLEX SIG - COLON CA SCREENING 1958 LIPID TESTING 1958 DTAP/TDAP/TD VACCINES (1 - Tdap) 1977 PNEUMOCOCCAL VACCINE 50+ (1 of 2 - PCV) 1977 Respiratory Syncytial Virus (RSV) Vaccine Pt: or over 60 yrs (1 - Risk 50-74 years 1-dose series) 2008 ZOSTER VACCINE (1 of 2) 2008 HEPATITIS B VACCINE (2 of 3 - Hep B Twinrix risk 3-dose series) 02/16/2018 01/19/2018 HEPATITIS A VACCINE (2 of 2 - [...] Management General On track( 022 9:03 AM TOOL MACHINIST) Diana Soler, RN Note: Expected end date: [...] C RNA QUANTITATIVE Routine 02/13/2021 9:33 AM TOOL MACHINIST Compensated HCV cirrhosis ENDOSCOPY, COLON, SCREENING Routine 04/28/2020 12:08 PM TOOL MACHINIST from Last 3 Months or Most Recently [...] 46 U/L QUEST Comment: Test Performed at: [facility] [address] [place] [phone] GERARD DUDLEY MD Blood BLOOD SPECIMEN / Unknown 09/09/2023 8:47 AM CDT 09/09/2023 8:48 AM CDT us Valente Jett MD LAB - CHEMISTRY ORDERABLES Fin al Result [facility] [address] [place] [address] * HEPATITIS C RNA QUANTITATIVE (02/13/2021 9:33 AM TOOL MACHINIST) Pathologist [facility] Hepatitis C RNA PCR, Interp Not detected Not detected 02/15/2021 12:49 PM TOOL MACHINIST [facility] Blood BLOOD SPECIMEN / Unknown Lab Venipuncture / Unknown 02/13/2021 9:33 AM TOOL MACHINIST 02/13/2021 10:23 AM TOOL MACHINIST Narrative [facility] - 02/15/2021 12:49 PM TOOL MACHINIST The Hepatitis C viral (HCV) RNA analysis utilized a serum sample, real-time reverse cardiac rehab nurse PCR, and is reported as Not Detected, [...] the isolation of HCV RNA with reverse cardiac rehab nurse of genomic HCV RNA followed by real-time PCR in the presence of an unrelated RNA internal control. The internal control ensures that RNA is isolated, and that no general significant inhibitors of the RT-PCR process are present. The analysis was performed using a U.S. FDA approved test methodology ([employer] Real Time HCV). Valente Jett MD LAB - CHEMISTRY ORDERABLES Fin al Result Performing Organization Address City/[facility] Co de Phone Number [facility] [address] [place] [address], [facility] [phone] * ENDOSCOPY, COLON, SCREENING (04/28/2020 12:08 PM TOOL MACHINIST) Report Endoscopy POC Endoscopy Department Report _ [...] entire procedure. Procedure Code(s): --- Professional --- 46069, Esophagogastroduod enoscopy, flexible, transoral; diagnostic, including collection of specimen(s) by brushing or washing, when performed (separate procedure) Diagnosis Code(s): --- Professional --- K31.89, Other diseases of stomach and duodenum I85.00, Esophageal varices without bleeding CPT copyright 2019 [employer]. All rights reserved. The codes documented in this report are preliminary and upon manager ob review may be revised to meet current compliance requirements. Valente Jett, 04/28/2020 1:42:20 PM Note Initiated On: 04/28/2020 12:08 PM Number of Addenda: [address] [address] [facility] 04/28/2020 12:0 8 PM TOOL MACHINIST Valente Jett MD GI PROCEDURE ORDERABLES Edited Result - Final [facility] from Last 3 Months or Most Recently Relevant to Health Maintenance Insurance [facility] MANAGED MEDICARE ADV [facility] MANAGED MEDICARE ADV Care Teams Siding Coreboard Inspector Relationship Specialty Start Date End Date Leonardo Isidro MD [address] [place] [id number] PCP - General Family Medicine 10/30/17
--- OUTSIDE RECORDS SUMMARY | 2025-01-25 10:17 | XMS_ITS | Clinical Summary ---
Author Organization [facility] Address [address] [place] [address] Phone Care Team Providers Care Manager Rfid Name Role Phone Leonardo Isidro MD Primary Care Provider +1- [phone] Allergies Active Allergy Reactions Criticality Noted Date [...] Flex Sig/CT Colonography Q 5 years 05/29/2003 RSV VACCINE (60+ or ) (1 - Risk 50-74 years 1-dose series) 2008 ZOSTER VACCINE (1 of 2) 2008 INFLUENZA VACCINE (#1) 2024 Insurance RX [employer] RX Member Subscriber Plan / Payer (Ef fective for All Dates) Name:Don Carbajal Relation to Subscriber:Self Name:Don Carbajal Payer ID:Not on file Type:RX LDI Address: [place] Advance Directives For more information, please contact: [phone] * Full Code (Latest Code Status on File) Date Activated Date Inactivated Comments 08/10/2017 3:08 PM 08/13/2017 2:34 PM Care Teams Manager Rfid Relationship Specialty Start Date End Date Leonardo Isidro MD PCP - General Family Practice 08/10/17
--- OUTSIDE RECORDS SUMMARY | 2025-01-25 10:17 | XMS_ITS | Clinical Summary ---
Author Organization [facility] Address [address] [place] [address] Care Team Providers Care Mobile Home Mechanic Name Role Phone Unavailable Primary Care Provider [...] of 2) 2008 COVID-19 Vaccine ( - 2024-2 6 season) 2024 Influenza Adult (#1) 2024 RSV Immunization or 60+ Years (1 - 1-dose 75+ series) 2033 Hepatitis A Vaccines Aged Out No long er eligible based on patient's age to complete this topic Meningococcal B Vaccine Aged Out No l onger eligible based on patient's age to complete this topic Meningococcal Vaccine Aged Out No ember april eligible based on patient's age to complete this topic RSV Immunizations Under 20 Months Aged Out No longer eligible based on patient's age to complete this topic
[2025-01-25 20:35] LABS: Hematocrit 43.4 % (42.0-52.0); Hemoglobin 14.5 g/dL (14.0-18.0); Immature Granulocyte Percent A 0.4 % (0-0.5); Lymphocytes Absolute Auto 0.90 K/mm3 (0.9-3.2); Mean Corpuscular HGB Conc 33.4 g/dl (32-36); Mean Corpuscular Hemoglobin 32.2 pg (26-34); Mean Corpuscular Volume 96.4 fl (80-100); Nucleated Red Blood Cells Absolute Auto 0.000 K/mm3 (0.0-0.012); Nucleated Red Blood Cells Perc 0.0 % (0.0-0.2); Platelet Count Result 205 k/mm3 (150-375); Red Blood Count 4.50 M/mm3 (4.6-6.20); White Blood Count 5.2 K/mm3 (4.5-10.0)
[2025-01-25 20:46] LABS: Cholesterol 215 mg/dL (0-200); HDL Direct 41 mg/dL; Triglycerides 158 mg/dL (<150)
[2025-01-25 21:23] LABS: Alanine Aminotransferase 22 U/L (6-50); Albumin Level 4.5 g/dL (3.5-5.1); Alkaline Phosphatase 97 U/L (38-126); Anion Gap 6 mmol/L (4-12); Aspartate Amino Transferase 54 U/L (17-59); Bilirubin,Total 1.0 mg/dL (0.2-1.3); Blood Urea Nitrogen 9 mg/dL (9-20); Calcium 9.8 mg/dL (8.4-10.2); Carbon Dioxide 29 mmol/L (22-30); Chloride 101 mmol/L (98-107); Estimated Glomerular Filt Rate > 60; Glucose 82 mg/dL (65-110); Potassium 4.4 mmol/L (3.4-5.0); Sodium 136 mmol/L (137-145); Total Protein 7.7 g/dL (6.3-8.2)
== END 2025-01-25 09:28 | disposition home or self-care (01) ==
PROVIDERS: PCP Family Medicine; Visit Provider Family Medicine
DX: G25.81 Restless legs syndrome (principal); E61.1 Iron deficiency; K70.31 Alcoholic cirrhosis of liver with ascites; B19.20 Unspecified viral hepatitis C without hepatic coma
CPT/HCPCS: 36415; 80053; 80061; 85025

== ENCOUNTER 2025-02-15 09:24 | Emergency (ER) | payer MEDICARE, SELFPAY ==
--- NOTE | ~2025-02-15 | XR_ITS ---
EXAMINATION: XR finger 5th LT min 2V, 02/15/2025 9:42 PLEAT TAPER HISTORY: lac, FELL OFF LADDER COMPARISON: No comparisons available. Findings: There is a comminuted displaced fracture of the distal aspect of the distal phalanx. No significant degenerative changes. Posttraumatic soft tissue changes noted with amputation. Impression: Fracture detailed above Reviewed, dictated and finalized at location P. T TAPER Impression: Fracture detailed above
[2025-02-15 09:30] VITALS: BP 141/90; PULSE 67; RESP 17; TEMP 36.7; O2SAT 98
--- NOTE | 2025-02-15 10:09 | ED_ITS ---
HPI - Wound/Laceration General Chief Complaint: Wound/Laceration Stated Complaint: hand lac Time Seen by Provider: 02/15/25 09:32 Source: patient Mode of arrival: ambulatory Limitations: no limitations History of Present Illness HPI narrative: This is a 64 year old male that presents to the ER for left fifth finger injury. He was using a Jointer and took the tip of his finger off. He is unsure of last tetanus vaccination. Denies decreased ROM. Related Data Allergies Allergy/AdvReac Type Severity Reaction Status Date / Time Penicillins Allergy Unknown Unknown Verified 02/15/25 09:25 duloxetine (From Cymbalta) AdvReac Confusion Verified 02/15/25 09:25 Review of Systems Review of Systems: All systems reviewed & are unremarkable except as noted in HPI and below PMFSH Past Medical History Medical History (Updated 02/15/25 @ 11:51 by Kellie Slade PA-C) Fracture of transverse process of lumbar vertebra Cirrhosis of liver COPD (chronic obstructive pulmonary disease) Tubular adenoma Constipation due to opioid therapy Hepatitis GERD (gastroesophageal reflux disease) Asthma Reactive depression Restless legs syndrome (RLS) Surgical History Surgical History S/P wrist surgery left S/P shoulder surgery Family History Family History Father Heart disease COPD (chronic obstructive pulmonary disease) Unknown Allergies Social History Social History (Updated 01/12/25 @ 07:51 by Inés Taylor MA) Smoking packs per day: 1 Smoking cigarettes per day: 20.0 Years smoked: 20 Smoking pack-years: 20.00 Smoking status: Current every day smoker Tobacco type: cigars Alcohol intake: never Substance use: never Substance use type: does not use Lack of Transportation: No Lack of Food: Never True Current Housing: I Have Housing Concerned About Future Housing: No Difficulty Paying Gas/Electric Bills: No Difficulty Paying for Meds: No Currently Unemployed: No Education: Associate Degree Difficulty w/ Childcare or Family Care: No Living arrangements: with family Occupation/Education: retired Additional occupation/education comments: since approx 2017 Gender identity (if verbalized by the patient): Male Spiritual care concerns: No Agree to blood products: Yes Exam Narrative: GENERAL: Well-appearing, well-nourished, and in no acute distress. HEAD: Normocephalic, atraumatic. EYES: EOMI. EXTREMITIES: Normal range of motion. Left fifth finger with tip amputated. Small portion of the nail at the base is still present SKIN: Warm, dry, no rash. NEURO: No focal deficits. Alert and oriented x3. PSYCH: Normal mood and affect Course Consultations Plastic surgery: Time of Consult: 11:00 I have discussed the care of this patient with the following provider: Dr. Colunga. Recommends soaking in betadine, bandage, f/u for surgery Vital Signs Vital signs: Vital Signs Temperature 98.1 F 02/15/25 09:30 Pulse Rate 67 02/15/25 09:30 Respiratory Rate 17 02/15/25 09:30 Blood Pressure 141/90 H 02/15/25 09:30 Pulse Oximetry 98 02/15/25 09:30 Oxygen Delivery Room Air 02/15/25 09:30 Temperature 98.1 F 02/15/25 09:30 Pulse Rate 67 02/15/25 09:30 Respiratory Rate 17 02/15/25 09:30 Blood Pressure 141/90 H 02/15/25 09:30 Pulse Oximetry 98 02/15/25 09:30 Oxygen Delivery Room Air 02/15/25 09:30 Procedures Laceration Laceration 1: Date: 02/15/25 Time: 11:00 Site: hand Side (If applicable): left Description: other (amputation) Pre-repair: irrigated extensively ====== Skin Level ====== ====== Subcutaneous Layer ====== ====== Muscle Layer ====== ====== Tendon Layer ====== Dressing: Wound was irrigated, soaked in Betadine, covered with Xeroform, Telfa, Kerlix, Coban MDM MDM Narrative Medical decision making narrative: Patient presents to the emergency department for left 5th finger tip amputation. Patient was updated on tetanus. Given a dose of Ancef. Dr. Colunga came down to the ER to evaluate patient. He will be set up with surgery outpatient. At this time his wound was cleansed and covered with a bandage. He will follow-up with Dr. Colunga for further care Differential Diagnosis Differential Diagnosis: Finger amputation, open fracture Imaging Data Radiologist's impression: ITS Impressions Finger X-Ray 02/15/25 09:53 Impression: Fracture detailed above Critical Care Time Critical Care Time Critical Care Time: No Discharge Plan Discharge Clinical Impression: Amputated finger Qualifiers: Encounter type: initial encounter Qualified Code(s): S68.119A - Complete traumatic metacarpophalangeal amputation of unspecified finger, initial enco unter Patient Disposition: Home Condition: Stable Instructions: Antibiotic Form, Finger Amputation (ED) Additional Instructions: Return to the emergency department if you experience fever, redness or swelling of your wound, abnormal drainage from your wound, or any other symptoms that are concerning to you. You may leave the bandage in place until you see Dr. Colunga. Take oral antibiotic as prescribed. Pain medication as needed Follow-up with Dr. Colunga for further care Patient Language: Turkmen Prescriptions: New cephalexin 500 mg capsule 500 mg PO Q8H 5 Days Qty: 15 0RF hydrocodone-acetaminophen 5-325 mg tablet 1 tablet PO Q6H PRN (Reason: pain) Qty: 14 0RF No Action ibuprofen 200 mg capsule 600 mg PO Q8H PRN (Reason: pain) Qty: 30 0RF esomeprazole magnesium [Nexium] 40 mg capsule,delayed release(DR/EC) 40 mg PO DAILY Qty: 100 1RF gabapentin 300 mg capsule See Rx Instructions .ROUTE .COMPLEX Qty: 200 1RF Dose Instruction: TAKE 1 CAPSULE BY MOUTH TWICE DAILY Rx Instructions: TAKE 1 CAPSULE BY MOUTH TWICE DAILY sildenafil [Viagra] 100 mg tablet 100 mg PO DAILY PRN (Reason: sexual activity) Qty: 10 5RF Rx Instructions: administer 30 minutes to 4 hours before activity Follow-up/Referrals: India Colunga MD [Physician, Plastic Surgery] Leonardo Isidro MD [Primary Care Provider, Family Practice]
[2025-02-15] MEDS: HYDROcodone/acetaminophen (*CRX) 5-325 MG TABLET 1 TAB PO (10:22)
[2025-02-15] MEDS: TETANUS,DIPHTHERIA,AC PERTUSSIS ADULT (0.5 ML) BOOSTRIX IM (10:23)
[2025-02-15] MEDS: WATER, STERILE FOR INJECTION 10 ML VIAL XX (10:25)
--- OUTSIDE RECORDS SUMMARY | 2025-02-15 10:32 | XMS_ITS | Clinical Summary ---
Author Organization [facility] Address [address] [place] [address] Phone Care Team Providers Care Acid Mixer Name Role Phone Leonardo Isidro MD Primary Care Provider +1- [phone] Allergies Active Allergy Reactions Criticality Noted Date [...] Advance Directives For more information, please contact: [phone] * Full Code (Latest Code Status on File) Date Activated Date Inactivated Comments 08/10/2017 3:08 PM 08/13/2017 2:34 PM Care Teams Acid Mixer Relationship Specialty Start Date End Date Leonardo Isidro MD PCP - General Family Practice 08/10/17
--- OUTSIDE RECORDS SUMMARY | 2025-02-15 10:32 | XMS_ITS | Clinical Summary ---
Author Organization [facility] [employer] Address [address] [place] [address] Care Team Providers Care Hand Pleater Name Role Phone Leonardo Isidro MD Primary Care Provider +1- [phone] Source Comments [facility] [employer],non-owned Affiliates and Associated Physician Practices is amultiple site organization consisting of ambulatory clinics and hospital sitesin [place], [place], [place] and [place]. This disclosure is being madepursuant to the Care Everywhere program and may not contain all information available regarding this patient. Last updated 17.[facility] [employer] Allergies Active Allergy Reactions Criticality Noted Date [...] on file Legal Sex Male 9:01 AM HUMAN RESOURCES ASSOCIATE Gender Identity Not on file Sexual Orientation Not on file Last Filed Vital Signs Vital Sign Reading Time Taken Comments Blood Pressure 126/77 02/11/2023 8:40 AM HUMAN RESOURCES ASSOCIATE Pulse 64 02/11/2023 8:40 AM HUMAN RESOURCES ASSOCIATE Temperature 36.2 C (97.2 F) 02/11/2023 8:40 AM HUMAN RESOURCES ASSOCIATE Respiratory Rate 18 02/11/2023 8:40 AM HUMAN RESOURCES ASSOCIATE Oxygen Saturation 99% 02/11/2023 8:40 AM HUMAN RESOURCES ASSOCIATE Inhaled Oxygen Concentration - - Weight 77.3 kg (170 lb 6.4 oz) 02/11/2023 8:40 A M HUMAN RESOURCES ASSOCIATE Height 167.6 cm (5' 6) 02/11/2023 8:40 AM HUMAN RESOURCES ASSOCIATE Body Mass Index 27.5 02/11/2023 8:40 AM HUMAN RESOURCES ASSOCIATE Plan of Treatment Health Maintenance Due Date [...] Management General On track( 022 9:03 AM HUMAN RESOURCES ASSOCIATE) Diana Soler, RN Note: Expected end date: [...] C RNA QUANTITATIVE Routine 02/13/2021 9:33 AM HUMAN RESOURCES ASSOCIATE Compensated HCV cirrhosis ENDOSCOPY, COLON, SCREENING Routine 04/28/2020 12:08 PM HUMAN RESOURCES ASSOCIATE from Last 3 Months or Most Recently [...] 46 U/L QUEST Comment: Test Performed at: [email or web address] [id number] [place] [phone] GERARD DUDLEY MD Blood BLOOD SPECIMEN / Unknown 09/09/2023 8:47 AM CDT 09/09/2023 8:48 AM CDT us Valente Jett MD LAB - CHEMISTRY ORDERABLES Fin al Result [facility] [address] [place] [address] * HEPATITIS C RNA QUANTITATIVE (02/13/2021 9:33 AM HUMAN RESOURCES ASSOCIATE) Pathologist [facility] Hepatitis C RNA PCR, Interp Not detected Not detected 02/15/2021 12:49 PM HUMAN RESOURCES ASSOCIATE [facility] Blood BLOOD SPECIMEN / Unknown Lab Venipuncture / Unknown 02/13/2021 9:33 AM HUMAN RESOURCES ASSOCIATE 02/13/2021 10:23 AM HUMAN RESOURCES ASSOCIATE Narrative [facility] - 02/15/2021 12:49 PM HUMAN RESOURCES ASSOCIATE The Hepatitis C viral (HCV) RNA analysis utilized a serum sample, real-time reverse layup worker PCR, and is reported as Not Detected, [...] the isolation of HCV RNA with reverse layup worker of genomic HCV RNA followed by real-time PCR in the presence of an unrelated RNA internal control. The internal control ensures that RNA is isolated, and that no general significant inhibitors of the RT-PCR process are present. The analysis was performed using a U.S. FDA approved test methodology ([employer] Real Time HCV). Valente Jett MD LAB - CHEMISTRY ORDERABLES Fin al Result Performing Organization Address City/[facility] Co de Phone Number [facility] [address] [place] [address], [facility] [phone] * ENDOSCOPY, COLON, SCREENING (04/28/2020 12:08 PM HUMAN RESOURCES ASSOCIATE) Report Endoscopy POC Endoscopy Department Report _ [...] entire procedure. Procedure Code(s): --- Professional --- 14140, Esophagogastroduod enoscopy, flexible, transoral; diagnostic, including collection of specimen(s) by brushing or washing, when performed (separate procedure) Diagnosis Code(s): --- Professional --- K31.89, Other diseases of stomach and duodenum I85.00, Esophageal varices without bleeding CPT copyright 2019 [employer]. All rights reserved. The codes documented in this report are preliminary and upon drink mixer review may be revised to meet current compliance requirements. Valente Jett, 04/28/2020 1:42:20 PM Note Initiated On: 04/28/2020 12:08 PM Number of Addenda: [address] [address] [facility] [employer] 04/28/2020 12:0 8 PM HUMAN RESOURCES ASSOCIATE Valente Jett MD GI PROCEDURE ORDERABLES Edited Result - Final [facility] from Last 3 Months or Most Recently Relevant to Health Maintenance Insurance [facility] MANAGED MEDICARE ADV [facility] MANAGED MEDICARE ADV Care Teams Hand Pleater Relationship Specialty Start Date End Date Leonardo Isidro MD [address] [place] [phone] PCP - General Family Medicine 10/30/17
--- OUTSIDE RECORDS SUMMARY | 2025-02-15 10:32 | XMS_ITS | Clinical Summary ---
Author Organization [facility] Address [address] [place] [address] Phone Care Team Providers Care Research Technician Name Role Phone Venessa Isidro MD Primary Care Provider +1- [phone] Allergies Active Allergy Reactions Criticality Noted Date [...] complete this topic Human Papillomavirus (HPV) Immunization (No Doses Required) Completed Meningococcal Immunization (ACWY) Aged Out No longer eligible b ased on patient's age to complete this topic Rotavirus Immunization Aged Out No lo nger eligible based on patient's age to complete this topic Care Teams Research Technician Relationship Specialty Start Date End Date Venessa Isidro MD PCP - General Family Medicine 01/17/17
--- NOTE | 2025-02-15 11:10 | WPDCN ---
Assessment and Plan Assessment and plan (1) Amputation finger: Qualifiers: Encounter type: initial encounter Qualified Code(s): S68.119A - Complete traumatic metacarpophalangeal amputation of unspecified finger, initial encounter Code(s): S68.119A - Complete traumatic metacarpophalangeal amputation of unspecified finger, initial encounter Status: Acute Assessment and Plan: 64yo RHD male with left small finger distal tip amputation with exposed phalanx. xray images reviewed and agree with report discussed impression and Dx and option of secondary intention noting potential time course to heal, risk of infection, and sensitivity given potentially thin coverage to bone. discussed surgery with volar v-y advancement flap, post-op expectations and risks. Reviewed procedure, post-op expectations and risks including but not limited to bleeding, infection, injury to tendon/nerve/vessel, decreased hand function, stiffness, RSD, no change or worsening of symptoms, partial/total flap loss. Plan: 1) ER will further irrigate and clean wound and dress for discharge 2) po abx 3) will begin scheduling outpatient amputation revisioin with local flap. 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 wound initially irriated and pressure dressing placed. xray noting amputation distal portion of p3 and plastics consulted for further eval and mgmt PMFSH Past Medical History Medical History (Updated 02/15/25 @ 11:13 by India Colunga MD) Fracture of transverse process of lumbar vertebra Cirrhosis of liver COPD (chronic obstructive pulmonary disease) Tubular adenoma Constipation due to opioid therapy Hepatitis GERD (gastroesophageal reflux disease) Asthma Reactive depression Restless legs syndrome (RLS) Surgical History Surgical History S/P wrist surgery left S/P shoulder surgery Family History Family History Father Heart disease COPD (chronic obstructive pulmonary disease) Unknown Allergies Social History Social History (Updated 01/12/25 @ 07:51 by Inés Taylor MA) Smoking packs per day: 1 Smoking cigarettes per day: 20.0 Years smoked: 20 Smoking pack-years: 20.00 Smoking status: Current every day smoker Tobacco type: cigars Alcohol intake: never Substance use: never Substance use type: does not use Lack of Transportation: No Lack of Food: Never True Current Housing: I Have Housing Concerned About Future Housing: No Difficulty Paying Gas/Electric Bills: No Difficulty Paying for Meds: No Currently Unemployed: No Education: Associate Degree Difficulty w/ Childcare or Family Care: No Living arrangements: with family Occupation/Education: retired Additional occupation/education comments: since approx 2016 Gender identity (if verbalized by the patient): Male Spiritual care concerns: No Agree to blood products: Yes Meds Home Medications and Allergies Home Medications ?Medication ?Instructions ?Recorded ?Confirmed ?Type esomeprazole magnesium 40 mg 40 mg PO DAILY #100 caps 10/12/24 01/25/25 Rx capsule,delayed release (Nexium) gabapentin 300 mg capsule See Rx Instructions .Route 11/15/24 01/25/25 Rx .COMPLEX #200 caps ibuprofen 200 mg capsule 600 mg (3 x 200 mg) PO Q8H PRN 12/14/24 01/25/25 Rx pain #30 caps sildenafil 100 mg tablet (Viagra) 100 mg PO DAILY PRN sexual 01/14/25 01/25/25 Rx activity #10 tabs Allergies Allergy/AdvReac Type Severity Reaction Status Date / Time Penicillins Allergy Unknown Unknown Verified 02/15/25 09:25 duloxetine (From Cymbalta) AdvReac Confusion Verified 02/15/25 09:25 Vital Signs Vital Signs - 24 hr 02/15/25 09:30 Temperature 36.7 C Pulse Rate 67 Respiratory Rate 17 Blood Pressure 141/90 H Pulse Oximetry 98 Oxygen Delivery Room Air Exam Narrative: Gen: traumatic amputation left small finger distal phalanx with some soft tissue covering phalanx and only proximal 25% of nailbed remains. ROM: full ROM Vascular: Warm and well perfused Sensation: Intact to light touch proximal to site of injury
--- OUTSIDE RECORDS SUMMARY | 2025-02-15 11:46 | XMS_ITS | Clinical Summary ---
Author Organization [facility] Address [address] [place] [address] Care Team Providers Care Gps Navigation Installer Name Role Phone Leonardo Isidro MD Primary Care Provider +1- [phone] Source Comments [facility],non-owned Affiliates and Associated Physician Practices is amultiple site organization consisting of ambulatory clinics and hospital sitesin [place], [place], [place] and [place]. This disclosure is being madepursuant to the Care Everywhere program and may not contain all information available regarding this patient. Last updated 17.[facility] Allergies Active Allergy Reactions Criticality Noted Date [...] on file Legal Sex Male 9:01 AM HYDROGEN POWER PLANT MANAGER Gender Identity Not on file Sexual Orientation Not on file Last Filed Vital Signs Vital Sign Reading Time Taken Comments Blood Pressure 126/77 02/11/2023 8:40 AM HYDROGEN POWER PLANT MANAGER Pulse 64 02/11/2023 8:40 AM HYDROGEN POWER PLANT MANAGER Temperature 36.2 C (97.2 F) 02/11/2023 8:40 AM HYDROGEN POWER PLANT MANAGER Respiratory Rate 18 02/11/2023 8:40 AM HYDROGEN POWER PLANT MANAGER Oxygen Saturation 99% 02/11/2023 8:40 AM HYDROGEN POWER PLANT MANAGER Inhaled Oxygen Concentration - - Weight 77.3 kg (170 lb 6.4 oz) 02/11/2023 8:40 A M HYDROGEN POWER PLANT MANAGER Height 167.6 cm (5' 6) 02/11/2023 8:40 AM HYDROGEN POWER PLANT MANAGER Body Mass Index 27.5 02/11/2023 8:40 AM HYDROGEN POWER PLANT MANAGER Plan of Treatment Health Maintenance Due Date [...] Management General On track( 022 9:03 AM HYDROGEN POWER PLANT MANAGER) Diana Soler, RN Note: Expected end date: [...] C RNA QUANTITATIVE Routine 02/13/2021 9:33 AM HYDROGEN POWER PLANT MANAGER Compensated HCV cirrhosis ENDOSCOPY, COLON, SCREENING Routine 04/28/2020 12:08 PM HYDROGEN POWER PLANT MANAGER from Last 3 Months or Most Recently [...] 46 U/L QUEST Comment: Test Performed at: [facility] [id number] [place] [id number] GERARD DUDLEY MD Blood BLOOD SPECIMEN / Unknown 09/09/2023 8:47 AM CDT 09/09/2023 8:48 AM CDT us Valente Jett MD LAB - CHEMISTRY ORDERABLES Fin al Result [facility] [address] [place] [address] * HEPATITIS C RNA QUANTITATIVE (02/13/2021 9:33 AM HYDROGEN POWER PLANT MANAGER) Pathologist [facility] Hepatitis C RNA PCR, Interp Not detected Not detected 02/15/2021 12:49 PM HYDROGEN POWER PLANT MANAGER [facility] Blood BLOOD SPECIMEN / Unknown Lab Venipuncture / Unknown 02/13/2021 9:33 AM HYDROGEN POWER PLANT MANAGER 02/13/2021 10:23 AM HYDROGEN POWER PLANT MANAGER Narrative [facility] - 02/15/2021 12:49 PM HYDROGEN POWER PLANT MANAGER The Hepatitis C viral (HCV) RNA analysis utilized a serum sample, real-time reverse field administrator PCR, and is reported as Not Detected, [...] the isolation of HCV RNA with reverse field administrator of genomic HCV RNA followed by real-time PCR in the presence of an unrelated RNA internal control. The internal control ensures that RNA is isolated, and that no general significant inhibitors of the RT-PCR process are present. The analysis was performed using a U.S. FDA approved test methodology ([employer] Real Time HCV). Valente Jett MD LAB - CHEMISTRY ORDERABLES Fin al Result Performing Organization Address City/[facility] Co de Phone Number [facility] [address] [place] [address], [facility] [phone] * ENDOSCOPY, COLON, SCREENING (04/28/2020 12:08 PM HYDROGEN POWER PLANT MANAGER) Report Endoscopy POC Endoscopy Department Report _ [...] entire procedure. Procedure Code(s): --- Professional --- 12465, Esophagogastroduod enoscopy, flexible, transoral; diagnostic, including collection of specimen(s) by brushing or washing, when performed (separate procedure) Diagnosis Code(s): --- Professional --- K31.89, Other diseases of stomach and duodenum I85.00, Esophageal varices without bleeding CPT copyright 2019 [employer]. All rights reserved. The codes documented in this report are preliminary and upon patient ambassador review may be revised to meet current compliance requirements. Valente Jett, 04/28/2020 1:42:20 PM Note Initiated On: 04/28/2020 12:08 PM Number of Addenda: [address] [address] [facility] [employer] 04/28/2020 12:0 8 PM HYDROGEN POWER PLANT MANAGER Valente Jett MD GI PROCEDURE ORDERABLES Edited Result - Final [facility] [employer] from Last 3 Months or Most Recently Relevant to Health Maintenance Insurance [facility] MANAGED MEDICARE ADV [facility] MANAGED MEDICARE ADV Care Teams Gps Navigation Installer Relationship Specialty Start Date End Date Leonardo Isidro MD [address] [place] [id number] PCP - General Family Medicine 10/30/17
--- OUTSIDE RECORDS SUMMARY | 2025-02-15 11:46 | XMS_ITS | Clinical Summary ---
Author Organization [facility] Address [address] [place] [address] Phone Care Team Providers Care Engineering Instructor Name Role Phone Leonardo Isidro MD Primary Care Provider +1- [phone] Allergies Active Allergy Reactions Criticality Noted Date [...] Advance Directives For more information, please contact: [phone] * Full Code (Latest Code Status on File) Date Activated Date Inactivated Comments 08/10/2017 3:08 PM 08/13/2017 2:34 PM Care Teams Engineering Instructor Relationship Specialty Start Date End Date Leonardo Isidro MD PCP - General Family Practice 08/10/17
--- OUTSIDE RECORDS SUMMARY | 2025-02-15 11:46 | XMS_ITS | Clinical Summary ---
Author Organization [facility] Address [address] [place] [address] Phone Care Team Providers Care Sales Relationship Manager Name Role Phone Venessa Isidro MD Primary Care Provider +1- [phone] Allergies Active Allergy Reactions Criticality Noted Date [...] age to complete this topic Care Teams Sales Relationship Manager Relationship Specialty Start Date End Date Venessa Isidro MD PCP - General Family Medicine 01/17/17
--- OUTSIDE RECORDS SUMMARY | 2025-02-15 11:46 | XMS_ITS | Clinical Summary ---
Author Organization [facility] Address [address] [place] [address] Care Team Providers Care Independent Producer Name Role Phone Unavailable Primary Care Provider [...]
== END 2025-02-15 11:48 | disposition home or self-care (01) ==
PROVIDERS: Emergency Provider Physician Assistant; PCP Family Medicine
DX: S68.627A Partial traumatic transphalangeal amputation of left little finger, initial encounter (principal); Z23 Encounter for immunization; J44.9 Chronic obstructive pulmonary disease, unspecified; K21.9 Gastro-esophageal reflux disease without esophagitis; K74.60 Unspecified cirrhosis of liver; G25.81 Restless legs syndrome; F32.9 Major depressive disorder, single episode, unspecified; F17.290 Nicotine dependence, other tobacco product, uncomplicated; W29.8XXA Contact with other powered hand tools and household machinery, initial encounter
CPT/HCPCS: 73140; 90471; 90715; 99283; A9270; J0690

== ENCOUNTER 2025-02-17 10:20 | Day surgery (SDC) | payer MEDICARE, SELFPAY ==
[2025-02-16 07:51] VITALS: BMI 24.9
--- NOTE | 2025-02-17 07:04 | WPDHPUPDATE1 ---
History and Physical Update Update Date/Time: 02/17/25 07:04 Patient seen and examined in pre-operative holding area. No interval change in medical history or symptoms. Patient recalls previous discussion of benefits and alternatives to procedure. Continues to desire to proceed with left small finger local flap closure . Reviewed procedure, post-op expectations and risks including but not limited to bleeding, infection, injury to tendon/nerve/vessel, decreased hand function, stiffness, RSD, no change or worsening of symptoms partial/total flap loss. I discussed the possible use of assistants and their participation in the case. Patient stated understanding and signed the consent form wishing to proceed.
--- NOTE | 2025-02-17 07:04 | W.PM.PROC2 ---
Procedure Note - Detailed Date of Procedure 02/17/25 Pre-op Diagnosis Ampt Left Small Finger Post-op Diagnosis Same Procedure Performed amputation revision and local flap left small finger Surgeon India Colunga MD Market Risk Analyst sarthak davis pa-c Anesthesia Local Description of Procedure INFORMED CONSENT: The patient was seen and examined and marked in the pre-op area.? The patient signed the consent form. PROCEDURE IN DETAIL:The patient taken back to OR on the stretcher in supine position. Time out performed with surgeon and staff agreeing on patient's name site and surgery to be performed A tourniquet was placed on {left} upper extremity I injected {6}cc 1%lido i and 0.5% marcaine plain for digital block in the palm The?{left upper extremity}?was prepped and draped in sterile fashion the??{left upper extremity} was? elevated and finger tourniquet placed using poli. Using a Littler scissors I proceeded with sharp debridement of the nonviable skin and subcutaneous tissue to prepare the wound bed for VY advancement flap. I soaked the finger in saline for 1 minute agitating it to further debride the wound bed. I proceeded with constructing a volar V-Y advancement flap that I made incisions through skin and dermis with 15 blade scalpel going back to the DIP joint flexion crease. Littler scissors were used to gently spread the flap until I was able to advance the distal edge up to the residual nail that. I trimmed dog ears as indicated and bipolar area of the neurovascular bundle on the radial ulnar aspects. 4-0 chromic was used to secure the flap to the remaining nail plate as well as to secure the volar flap. The tourniquet was let down noting the flap and finger were well perfused with good cap refill. A dressing of xerforom, 4x4, and tube gauze and alumifoam splint was applied. The patient was then awaken from anesthesia and transferred to the recovery room in stable condition.? Complications - none EBL- 1cc Disposition - home in stable condition Sarthak Davis PA-C was essential for positioning, retraction, closure and dressing placement. [facility] Billing Surgery - Charge Forward: Surgery Billing ([id number] same for sarthak adding )
[2025-02-17 10:19] VITALS: BP 128/80; PULSE 60; RESP 16; TEMP 36.9; O2SAT 99
[2025-02-17] MEDS: ACETAMINOPHEN 500 MG TABLET 1000 MG PO (10:27)
--- OUTSIDE RECORDS SUMMARY | 2025-02-17 10:46 | XMS_ITS | Clinical Summary ---
Author Organization [facility] Address [address] [place] [address] Phone Care Team Providers Care Security And Compliance Project Manager Name Role Phone Leonardo Isidro MD Primary Care Provider +1- [phone] Allergies Active Allergy Reactions Criticality Noted Date [...] Advance Directives For more information, please contact: [phone] * Full Code (Latest Code Status on File) Date Activated Date Inactivated Comments 08/10/2017 3:08 PM 08/13/2017 2:34 PM Care Teams Security And Compliance Project Manager Relationship Specialty Start Date End Date Leonardo Isidro MD PCP - General Family Practice 08/10/17
--- OUTSIDE RECORDS SUMMARY | 2025-02-17 10:46 | XMS_ITS | Clinical Summary ---
Author Organization [facility] Address [address] [place] [address] Phone Care Team Providers Care Safety Companion Name Role Phone Venessa Isidro MD Primary Care Provider +1 [phone] Allergies Active Allergy Reactions Criticality Noted Date [...] age to complete this topic Care Teams Safety Companion Relationship Specialty Start Date End Date Venessa Isidro MD PCP - General Family Medicine 01/17/17
--- OUTSIDE RECORDS SUMMARY | 2025-02-17 10:46 | XMS_ITS | Clinical Summary ---
Author Organization [facility] Address [address] [place] [address] Care Team Providers Care Water Plant Pump Operator Name Role Phone Unavailable Primary Care Provider [...]
--- OUTSIDE RECORDS SUMMARY | 2025-02-17 10:46 | XMS_ITS | Clinical Summary ---
Author Organization [facility] Address [address] [place] [address] Care Team Providers Care Hand Scraper Name Role Phone Leonardo Isidro MD Primary Care Provider +1- [phone] Source Comments [facility],non-owned Affiliates and Associated Physician Practices is amultiple site organization consisting of ambulatory clinics and hospital sitesin [place], [place], [place] and [place]. This disclosure is being madepursuant to the Care Everywhere program and may not contain all information available regarding this patient. Last updated 17.[facility] Allergies Active Allergy Reactions Criticality Noted Date [...] on file Legal Sex Male 9:01 AM LEARNING COACH Gender Identity Not on file Sexual Orientation Not on file Last Filed Vital Signs Vital Sign Reading Time Taken Comments Blood Pressure 126/77 02/11/2023 8:40 AM LEARNING COACH Pulse 64 02/11/2023 8:40 AM LEARNING COACH Temperature 36.2 C (97.2 F) 02/11/2023 8:40 AM LEARNING COACH Respiratory Rate 18 02/11/2023 8:40 AM LEARNING COACH Oxygen Saturation 99% 02/11/2023 8:40 AM LEARNING COACH Inhaled Oxygen Concentration - - Weight 77.3 kg (170 lb 6.4 oz) 02/11/2023 8:40 A M LEARNING COACH Height 167.6 cm (5' 6) 02/11/2023 8:40 AM LEARNING COACH Body Mass Index 27.5 02/11/2023 8:40 AM LEARNING COACH Plan of Treatment Health Maintenance Due Date [...] Management General On track( 022 9:03 AM LEARNING COACH) Diana Soler, RN Note: Expected end date: [...] C RNA QUANTITATIVE Routine 02/13/2021 9:33 AM LEARNING COACH Compensated HCV cirrhosis ENDOSCOPY, COLON, SCREENING Routine 04/28/2020 12:08 PM LEARNING COACH from Last 3 Months or Most Recently [...] 46 U/L QUEST Comment: Test Performed at: [facility] [id number] [place] [id number] GERARD DUDLEY MD Blood BLOOD SPECIMEN / Unknown 09/09/2023 8:47 AM CDT 09/09/2023 8:48 AM CDT us Valente Jett MD LAB - CHEMISTRY ORDERABLES Fin al Result [facility] [address] [place] [address] * HEPATITIS C RNA QUANTITATIVE (02/13/2021 9:33 AM LEARNING COACH) Pathologist [facility] Hepatitis C RNA PCR, Interp Not detected Not detected 02/15/2021 12:49 PM LEARNING COACH [facility] Blood BLOOD SPECIMEN / Unknown Lab Venipuncture / Unknown 02/13/2021 9:33 AM LEARNING COACH 02/13/2021 10:23 AM LEARNING COACH Narrative [facility] - 02/15/2021 12:49 PM LEARNING COACH The Hepatitis C viral (HCV) RNA analysis utilized a serum sample, real-time reverse microsoft architect PCR, and is reported as Not [...] the isolation of HCV RNA with reverse microsoft architect of genomic HCV RNA followed by real-time PCR in the presence of an unrelated RNA internal control. The internal control ensures that RNA is isolated, and that no general significant inhibitors of the RT-PCR process are present. The analysis was performed using a U.S. FDA approved test methodology ([employer] Real Time HCV). Valente Jett MD LAB - CHEMISTRY ORDERABLES Fin al Result Performing Organization Address City/[facility] Co de Phone Number [facility] [address] [place] [address], [facility] [phone] * ENDOSCOPY, COLON, SCREENING (04/28/2020 12:08 PM LEARNING COACH) Report Endoscopy POC Endoscopy Department Report _ [...] entire procedure. Procedure Code(s): --- Professional --- 53442, Esophagogastroduod enoscopy, flexible, transoral; diagnostic, including collection of specimen(s) by brushing or washing, when performed (separate procedure) Diagnosis Code(s): --- Professional --- K31.89, Other diseases of stomach and duodenum I85.00, Esophageal varices without bleeding CPT copyright 2019 [employer]. All rights reserved. The codes documented in this report are preliminary and upon ticket collector review may be revised to meet current compliance requirements. Valente Jett, 04/28/2020 1:42:20 PM Note Initiated On: 04/28/2020 12:08 PM Number of Addenda: [address] [address] [facility] [employer] 04/28/2020 12:0 8 PM LEARNING COACH Valente Jett MD GI PROCEDURE ORDERABLES Edited Result - Final [facility] [employer] from Last 3 Months or Most Recently Relevant to Health Maintenance Insurance [facility] MANAGED MEDICARE ADV [facility] MANAGED MEDICARE ADV Care Teams Hand Scraper Relationship Specialty Start Date End Date Leonardo Isidro MD [address] [place] [id number] PCP - General Family Medicine 10/30/17
[2025-02-17 11:53] VITALS: BP 142/85; PULSE 59; RESP 12; O2SAT 98
[2025-02-17 11:58] VITALS: BP 137/95; PULSE 60; RESP 12; O2SAT 98
[2025-02-17 12:04] VITALS: BP 140/91; PULSE 62; RESP 12; O2SAT 98
[2025-02-17 12:11] VITALS: BP 136/99; PULSE 57; RESP 12; O2SAT 98
[2025-02-17] MEDS: LIDOCAINE 1% LOCAL INJ 20 ML VIAL (12:11)
[2025-02-17] MEDS: BUPivacaine HCL 0.5% 10 ML AMP (12:11)
[2025-02-17 12:53] VITALS: BP 143/88; PULSE 113; RESP 15; O2SAT 99
== END 2025-02-17 12:47 | disposition home or self-care (01) ==
PROVIDERS: PCP Family Medicine; Visit Provider Plastic Surgery
PROC: (CPT 14040; principal; 2025-02-17 11:15)
DX: S68.117A Complete traumatic metacarpophalangeal amputation of left little finger, initial encounter (principal); W27.0XXA Contact with workbench tool, initial encounter
CPT/HCPCS: 14040